=== PATIENT | female | born 1935 | race Caucasian/White ===

== ENCOUNTER 2016-12-28 19:54 | Inpatient (IN) | payer MEDICARE, OTHER ==
[2016-12-28 20:07] VITALS: BMI 23.1
--- NOTE | 2016-12-28 20:14 | ED PDOC ---
Arrival/HPI - General Chief Complaint: GI Problem Time Seen by Provider: 12/28/16 20:01 Historian: Patient, Caregiver - History of Present Illness Narrative History of Present Illness (Text): 12/28/16 20:14 Yumiko Jarquin is an 81 year old female, whose past medical history includes hypertension, diabetes, CAD with coronary stent placement, and cholecystectomy, who presents to the ED complaining of chest pain tonight. Patient also complaining of shortness of breath, cough, and abdominal pain. Medical Office Technologist also notes patient was vomiting and diaphoretic at home. Patient denies any diarrhea, urinary symptoms, back pain, neck pain, headache, dizziness , or any other complaints. Time/Duration: Other (today) Symptom Onset: Gradual Symptom Course: Unchanged Activities at Onset: Rest, Light Context: Home Past Medical History - Provider Review Nursing Documentation Reviewed: Yes - Reproductive Menopause: Yes - Cardiac Hx Cardiac Disorders: (CAD, [place], Angioplasty) - Pulmonary Hx Respiratory Disorders: No - Neurological Hx Neurological Disorder: Yes (PHERIPHERAL NEUROPATHY) - HEENT Hx HEENT Disorder: Yes Hx Blind: Yes (RIGHT EYE-INJURY) - Renal Hx Renal Disorder: No - Endocrine/Metabolic Hx Diabetes Mellitus Type 2: Yes - Hematological/Oncological Hx Blood Disorders: No - Integumentary Hx Dermatological Disorder: No - Musculoskeletal/Rheumatological Hx Musculoskeletal Disorders: Yes Hx Falls: No - Gastrointestinal Hx Gastrointestinal Disorders: Yes (POST LAP CONRAD 2--17,ACUTE CHOLEYCYSTITIS, GERD) - Genitourinary/Gynecological Hx Genitourinary Disorders: No Hx Reproductive Disorders: No - Psychiatric Hx Emotional Abuse: No Hx Physical Abuse: No Hx Substance Use: No - Surgical History Hx Cardiac Catheterization: Yes Hx Coronary Stent: Yes (X1) Hx Orthopedic Surgery: Yes Other/Comment: R eye surgery - Anesthesia Hx Anesthesia Reactions: No Hx Malignant Hyperthermia: No - Suicidal Assessment Feels Threatened In Home Enviroment: No Family/Social History - Physician Review Nursing Documentation Reviewed: Yes Family/Social History: No Known Family HX Smoking Status: Never Smoked Hx Alcohol Use: No Hx Substance Use: No Allergies/Home Meds Allergies/Adverse Reactions: Allergies Iodinated Contrast Media - Oral and Allergy (Verified 12/29/16 05:05) NAUSEA Home Medications: Home Meds Medication Instructions Recorded Confirmed metFORMIN [glucOPHAGE] 500 mg PO BID 01/02/16 11/15/16 Aspirin [Aspirin Chewable] 81 mg PO DAILY 10/29/16 11/15/16 Clopidogrel [Plavix] 75 mg PO DAILY 10/29/16 11/15/16 Multivitamin [Multivitamins] 1 tab PO DAILY 10/29/16 11/07/16 Pantoprazole [Protonix EC Tab] 40 mg PO DAILY 10/29/16 11/07/16 Rosuvastatin Calcium [Crestor] 10 mg PO DAILY 10/29/16 11/07/16 SITagliptin [Januvia] 25 mg PO DAILY 10/29/16 11/15/16 Telmisartan [Micardis] 40 mg PO DAILY 10/29/16 11/07/16 Review of Systems - Physician Review All systems were reviewed & negative as marked: Yes - Review of Systems Constitutional: Normal. absent: Fevers Eyes: Normal ENT: Normal Respiratory: SOB, Cough Cardiovascular: Chest Pain Gastrointestinal: Abdominal Pain, Vomiting. absent: Diarrhea Genitourinary Female: Normal. absent: Dysuria, Frequency, Hematuria, Urine Output Changes Musculoskeletal: Normal. absent: Back Pain, Neck Pain Skin: Normal. absent: Rash Neurological: Normal. absent: Headache, Dizziness Endocrine: Diaphoresis Hemo/Lymphatic: Normal Psychiatric: Normal Physical Exam Vital Signs Reviewed: Yes Vital Signs Temp Pulse Resp BP Pulse Ox 12/28/16 22:30 103 H 18 118/73 99 12/28/16 20:07 99.4 F 122 H 18 133/61 95 Temperature: Afebrile Blood Pressure: Normal Pulse: Regular Respiratory Rate: Normal Appearance: Positive for: Well-Appearing, Non-Toxic, Comfortable Pain Distress: None Mental Status: Positive for: Alert and Oriented X 3 - Systems Exam Head: Present: Atraumatic, Normocephalic Pupils: Present: PERRL Extroacular Muscles: Present: EOMI Conjunctiva: Present: Normal Mouth: Present: Moist Mucous Membranes Neck: Present: Normal Range of Motion Respiratory/Chest: Present: Clear to Auscultation, Good Air Exchange. No: Respiratory Distress, Accessory Muscle Use Cardiovascular: Present: Regular Rate and Rhythm, Normal S1, S2. No: Murmurs Abdomen: Present: Normal Bowel Sounds. No: Tenderness, Distention, Peritoneal Signs Back: Present: Normal Inspection Upper Extremity: Present: Normal Inspection. No: Cyanosis, Edema Lower Extremity: Present: Normal Inspection. No: Edema Neurological: Present: GCS=15, CN II-XII Intact, Speech Normal Skin: Present: Warm, Dry, Normal Color. No: Rashes Psychiatric: Present: Alert, Oriented x 3, Normal Insight, Normal Concentration Medical Decision Making ED Course and Treatment: 12/28/16 20:14 Impression: 81 year old female complaining of chest pain, shortness of breath, abdominal pain, and vomiting today. Plan: -- EKG -- Chest X-ray -- Labs, cardiac enzymes, BNP, lipase, amylase, blood cultures -- Urinalysis -- Reassess and disposition Prior Visits: Notes and results from previous visits were reviewed. On 10/29/2016, pt was seen in the ED for generalized weakness, chest pain, abdominal pain, back pain, and right arm pain. Pt was admitted to the hospital for further evaluation. Progress Notes: 12/28/16 20:41 Reviewed EKG, sinus tachycardia at [address]-segment elevations or depressions, no T-wave inversions, normal intervals. 12/28/16 21:02 Reviewed radiology, Chest X-ray shows no active disease. CT Abdomen and Pelvis ordered 12/28/16 22:53 Reviewed radiology, CT Abdomen and Pelvis shows: 1. Persistent renal enhancement. Correlate with renal function. 2. Striations within kidneys concerning for pyelonephritis. Correlate with urinalysis. 3. Incidental/non-acute findings are described above. Paged PMD. 12/29/16 23:32 Awaiting call back from Dr. Arauz. 12/29/16 00:[address] Arauz's service. 12/29/16 00:[address] back from Dr. Arauz. Will place on hospitalist service. Case discussed with Dr. Jeremiah Davis, who is aware and agrees with plan. Accepts pt in to hospitalist service. Pt will be admitted to [facility] for UTI and vomiting. - Lab Interpretations Microbiology Results: Microbiology Results 12/28/16 21:23 Blood-Venous Blood Culture - Preliminary Gram Negative [place] 12/28/16 21:23 Blood-Venous Gram Stain - Final Lab Results: 12/28/16 20:35 12/28/16 20:35 Lab Results 12/28/16 22:27: Urine Color Yellow, Urine Appearance Sl cloudy, Urine pH 6.0, Ur Specific [place] 1.010, Urine Protein 100 H, Urine Glucose (UA) >=1000, Urine Ketones Negative, Urine Blood Small H, Urine Nitrate Negative, Urine Bilirubin Negative, Urine Urobilinogen 0.2, Ur Leukocyte Esterase Trace H, Urine RBC 0 - 2, Urine WBC 25 - 30, Ur Epithelial Cells 0 - 2, Urine Bacteria Large 12/28/16 20:35: WBC 17.9 H D, RBC 3.66, Hgb 10.5 L, Hct 31.5 L, MCV 86.1, MCH 28.7, MCHC 33.3, RDW 13.6, Plt Count 309, MPV 9.9, Gran % 87.9 H, Lymph % (Auto ) 3.6 L, [place] % (Auto) 8.2 H, Eos % (Auto) 0.2 L, Baso % (Auto) 0.1, Gran # 15.73 H, Lymph # 0.6 L, [place] # 1.5 H, Eos # 0.0, Baso # 0.02, PT 10.8, INR 1.00 , APTT 27.5, Sodium 128 L, Potassium 5.1 H, Chloride 96 L, Carbon Dioxide 22, Anion Gap 15, BUN 26 H, Creatinine 1.6 H, Est GFR ( Amer) 37, Est GFR ( Non-Af Amer) 31, Random Glucose 370 H* D, Calcium 8.2 L, Total Bilirubin 0.5, AST 23, ALT 18, Alkaline Phosphatase 201 H, Lactate Dehydrogenase 551, Total Creatine Kinase 25 L, Troponin I < 0.01, Total Protein 7.4, Albumin 3.3, Globulin 4.1, Albumin/Globulin Ratio 0.8 L, Amylase 69, Lipase 355 H I have reviewed the lab results: Yes - RAD Interpretation Narrative RAD Interpretations (Text): Chest X-ray shows no active disease. CT Abdomen and Pelvis shows: Limitations: Motion artifact - mild. Lack of intravenous contrast. Lower thorax: Minimal atelectasis. ABDOMEN: Liver: Unremarkable. Gallbladder and bile ducts: Cholecystectomy. No ductal dilation. Pancreas: Unremarkable. No ductal dilation. Spleen: No splenomegaly. Adrenals: No mass. Kidneys and ureters: Probable LEFT renal cyst. Residual enhancement of kidneys with multiple linear striations. Residual contrast within renal collecting system, ureters, bladder. Stomach and bowel: Underdistention of descending and proximal sigmoid colon. No definite mural thickening. No obstruction. Appendix: Normal caliber. No inflammation. PELVIS: Bladder: See above. Reproductive: Unremarkable as visualized. ABDOMEN and PELVIS: Intraperitoneal space: No significant fluid collection. No free air. Bones/joints: Mild degenerative changes of spine. No acute fracture. Soft tissues: Mild varices within anterior pelvic wall. Vasculature: Mild atherosclerotic disease. No abdominal aortic aneurysm. Lymph nodes: No pathologically enlarged lymph nodes. IMPRESSION: 1. Persistent renal enhancement. Correlate with renal function. 2. Striations within kidneys concerning for pyelonephritis. Correlate with urinalysis. 3. Incidental/non-acute findings are described above. Radiology Orders: 12/28/16 20:15 CHEST PORTABLE [RAD] Stat 12/28/16 21:01 ABD & PELVIS W/O PO OR IV CONT [CT] Stat Supervisor Hydrochloric Area: ED Physician, Radiologist - EKG Interpretation Interpreted by ED Physician: Yes Type: 12 lead EKG - Medication Orders Current Medication Orders: Acetaminophen (Tylenol 325mg Tab) 650 mg PO Q6H PRN PRN Reason: Fever >100.4 F Aspirin (Aspirin Chewable) 81 mg PO DAILY [facility] Last Admin: 12/29/16 10:17 Dose: 81 MG Atorvastatin Calcium (Lipitor) 40 mg PO DAILY [facility] Last Admin: 12/29/16 10:17 Dose: 40 MG Clopidogrel Bisulfate (Plavix) 75 mg PO DAILY [facility] Last Admin: 12/29/16 10:17 Dose: 75 MG Enoxaparin Sodium (Lovenox) 30 mg SC DAILY [facility] PRN Reason: Protocol Last Admin: 12/29/16 10:18 Dose: 30 MG Subcutaneous Administrations Document 12/29/16 10:18 DLL (Rec: 12/29/16 10:18 DLL [id number]) Injection Site MAR Injection Site Right Abdomen Charges for Administration # of Subcutaneous Administrations 1 Sodium Chloride (Sodium Chloride 0.9%) 1,000 mls @ 60 mls/hr IV .[id number] [facility] Last Admin: 12/29/16 10:36 Dose: 60 MLS/HR eMAR Start Stop Document 12/29/16 10:36 DLL (Rec: 12/29/16 10:36 DLL [id number]) Intravenous Solution Start Date 12/29/16 Start Time 10:36 Meropenem 1g/NS 100mL IVPB (Meropenem 1g/Ns 100ml Ivpb) 100 mls @ 100 mls/hr IVPB Q12H [facility] PRN Reason: Protocol Stop: 01/08/17 18:31 Last Admin: 12/29/16 18:27 Dose: 100 MLS/HR eMAR Start Stop Document 12/29/16 18:27 DLL (Rec: 12/29/16 18:27 DLL [id number]) Intravenous Solution Start Date 12/29/16 Start Time 18:27 End Date 12/29/16 End time 19:27 Total Infusion Time 60 Insulin Detemir (Levemir) 15 unit SC HS CHELA Insulin Human Lispro (Humalog Low) 0 units SC ACHS [facility] PRN Reason: Protocol Last Admin: 12/29/16 16:44 Dose: 5 UNITS MAR Blood Glucose Document 12/29/16 16:44 DLL (Rec: 12/29/16 16:45 DLL [place] [id number]) Blood Glucose Finger Stick Blood Glucose (70-120) 355 Subcutaneous Administrations Document 12/29/16 16:44 DLL (Rec: 12/29/16 16:45 DLL [place] [id number]) Injection Site MAR Injection Site Right Arm Charges for Administration # of Subcutaneous Administrations 1 Losartan Potassium (Cozaar) 50 mg PO DAILY [facility] Last Admin: 12/29/16 10:17 Dose: 50 MG MAR Pulse and Blood Pressure Document 12/29/16 10:17 DLL (Rec: 12/29/16 10:17 DLL [place] [id number]) Pulse Pulse Rate (60-90) 105 Blood Pressure Blood Pressure (100/60-150/90) 143/89 Multivitamins (Thera Tab) 1 tab PO DAILY [facility] Last Admin: 12/29/16 10:17 Dose: 1 TAB Pantoprazole Sodium (Protonix Ec Tab) 40 mg PO 0730,1630 [facility] Last Admin: 12/29/16 16:55 Dose: 40 MG Discontinued Medications Cefepime HCl (Maxipime 1gm) 100 mls @ 100 mls/hr IVPB Q24H [facility] PRN Reason: Protocol Last Admin: 12/28/16 23:51 Dose: 100 MLS/HR eMAR Start Stop Document 12/28/16 23:51 SB (Rec: 12/28/16 23:51 SB [id number] Intravenous Solution Start Date 12/28/16 Start Time 23:51 End Date 12/28/16 Sodium Chloride (Sodium Chloride 0.9%) 1,000 mls @ 100 mls/hr IV .Q10H [facility] Last Admin: 12/29/16 02:36 Dose: 100 MLS/HR eMAR Start Stop Document 12/29/16 02:36 SB (Rec: 12/29/16 02:36 SB [id number]) Intravenous Solution Start Date 12/29/16 Start Time 02:36 End Date 12/29/16 Meropenem 1g/NS 100mL IVPB (Meropenem 1g/Ns 100ml Ivpb) 100 mls @ 100 mls/hr IVPB Q12 [facility] PRN Reason: Protocol Stop: 01/08/17 22:01 Insulin Detemir (Levemir) 10 unit SC HS [facility] Insulin Human Lispro (Humalog) 5 units SC STAT STA Stop: 12/29/16 02:39 - Scribe Statement The provider has reviewed the documentation as recorded by the Scribandrez Dick All medical record entries made by the Scribe were at my direction and personally dictated by me. I have reviewed the chart and agree that the record accurately reflects my personal performance of the history, physical exam, medical decision making, and the department course for this patient. I have also personally directed, reviewed, and agree with the discharge instructions and disposition. Disposition/Present on Arrival - Present on Arrival Any Indicators Present on Arrival: No History of DVT/PE: No History of Uncontrolled Diabetes: No Urinary Catheter: No History of Decub. Ulcer: No History Surgical Site Infection Following: None - Disposition Have Diagnosis and Disposition been Completed?: Yes Diagnosis: Urinary tract infection Disposition: HOSPITALIZED Disposition Time: 00:05 Condition: FAIR
[2016-12-28 20:43] LABS: ADD MANUAL DIFF? NO
[2016-12-28 20:46] LABS: BASO # 0.02 K/mm3 (0.0-2.0); BASO % 0.1 % (0.0-3.0); EOS % 0.2 % (1.5-5.0); GRAN # 15.73 (1.4-6.5); GRAN % 87.9 % (50.0-68.0); HEMATOCRIT 31.5 % (36.0-48.0); LYMPH # 0.6 (1.2-3.4); LYMPH % 3.6 % (22.0-35.0); MEAN CELL VOLUME 86.1 fL (80.0-105.0); MEAN CORPUSCULAR HEMOGLOBIN 28.7 pg (25.0-35.0); MEAN CORPUSCULAR HGB CONC 33.3 g/dl (31.0-37.0); MEAN PLATELET VOLUME 9.9 fl (7.0-11.0); MONO # 1.5 (0.1-0.6); MONO % 8.2 % (1.0-6.0); PLATELET COUNT 309 10^3/uL (120.0-450.0); RED CELL DISTRIBUTION WIDTH 13.6 % (11.5-14.5); WHITE BLOOD COUNT 17.9 10^3/ul (4.5-11.0)
[2016-12-28 20:57] LABS: ALB/GLOB RATIO 0.8 (1.1-1.8); ALKALINE PHOSPHATASE 201 U/L (38-133); ALT/SGPT 18 U/L (7-56); AMYLASE 69 U/L (35-125); AST/SGOT 23 U/L (15-39); BILIRUBIN,TOTAL 0.5 mg/dL (0.2-1.3); BLOOD UREA NITROGEN 26 mg/dL (7-21); CALCIUM 8.2 mg/dL (8.4-10.5); CARBON DIOXIDE 22 mmol/L (21-33); CHLORIDE 96 mmol/L (98-107); GFR AFRICAN-AMERICAN 37; LIPASE 355 U/L (23-300); POTASSIUM 5.1 mmol/L (3.6-5.0); SODIUM 128 mmol/L (132-148); TOTAL PROTEIN 7.4 g/dL (5.8-8.3)
[2016-12-28 20:59] LABS: PARTIAL THROMBOPLASTIN TIME 27.5 Seconds (23.7-30.8)
[2016-12-28 21:01] LABS: GLUCOSE,RANDOM 370 mg/dL (70-110)
[2016-12-28 21:13] LABS: TROPONIN I < 0.01 ng/mL
--- NOTE | 2016-12-28 22:23 | CT ---
EXAM: CT Abdomen and Pelvis Without Intravenous Contrast CLINICAL HISTORY: 81 years old, female; Pain; Abdominal pain; Patient HX: Abd pain TECHNIQUE: Axial computed tomography images of the abdomen and pelvis without intravenous contrast. This CT exam was performed using one or more of the following dose reduction techniques: automated exposure control, adjustment of the mA and/or kV according to patient size, and/or use of iterative reconstruction technique. Coronal and sagittal reformatted images were created and reviewed. COMPARISON: CT - ABD PELVIS W/O PO OR IV CONT 10/29/2016 12:00:22 PM FINDINGS: Limitations: Motion artifact - mild. Lack of intravenous contrast. Lower thorax: Minimal atelectasis. ABDOMEN: Liver: Unremarkable. Gallbladder and bile ducts: Cholecystectomy. No ductal dilation. Pancreas: Unremarkable. No ductal dilation. Spleen: No splenomegaly. Adrenals: No mass. Kidneys and ureters: Probable LEFT renal cyst. Residual enhancement of kidneys with multiple linear striations. Residual contrast within renal collecting system, ureters, bladder. Stomach and bowel: Underdistention of descending and proximal sigmoid colon. No definite mural thickening. No obstruction. Appendix: Normal caliber. No inflammation. PELVIS: Bladder: See above. Reproductive: Unremarkable as visualized. ABDOMEN and PELVIS: Intraperitoneal space: No significant fluid collection. No free air. Bones/joints: Mild degenerative changes of spine. No acute fracture. Soft tissues: Mild varices within anterior pelvic wall. Vasculature: Mild atherosclerotic disease. No abdominal aortic aneurysm. Lymph nodes: No pathologically enlarged lymph nodes. IMPRESSION: 1. Persistent renal enhancement. Correlate with renal function. 2. Striations within kidneys concerning for pyelonephritis. Correlate with urinalysis. 3. Incidental/non-acute findings are described above.
[2016-12-28 23:01] LABS: URINE BILIRUBIN NEGATIVE (NEGATIVE); URINE BLOOD SMALL (NEGATIVE); URINE COLOR YELLOW (YELLOW); URINE GLUCOSE (UA) >=1000 mg/dL (NEGATIVE); URINE KETONE NEGATIVE (NEGATIVE); URINE LEUKOCYTE ESTERASE TRACE Leu/uL (NEGATIVE); URINE PROTEIN 100 mg/dL (<30 mg/dL); URINE UROBILINOGEN 0.2 E.U./dL (<1 E.U./dL)
[2016-12-28 23:02] LABS: URINE APPEARANCE SL CLOUDY (CLEAR)
[2016-12-28] MEDS ORDERED: Cefepime 1gm in NS 100ml 100 ML IVPB SCH (23:15)
[2016-12-28 23:24] LABS: URINE BACTERIA LARGE (NEG); URINE EPITHELIAL CELLS 0 - 2 /hpf (0-5); URINE RBC 0 - 2 /hpf (0-2); URINE WBC 25 - 30 /hpf (0-6)
--- NOTE | 2016-12-29 00:50 | CP.PCM.HP ---
History of Present Illness - History of Present Illness History of Present Illness: PGY1 for Dr. Ghulam Davis Admission: Sepsis 81 yo female with PMH of HTN, DM, CAD with 1 stent, CKD 3B, GERD, cholecystectomy and LAD KEMAL placement 1 month ago, presents to the ED complaining of shaking tonight. Patient also complaining of shortness of breath , cough, abdominal pain and chest pain with radiation to R posterior back and R arm. Pt has a CT neck with IV contrast at [facility] this AM. Per daughter , Last dose of metformin was the day before/or of the CT contrast. Per daughter , pt was uneventful the whole day, with only decreased appetitie. At 8pm, she received a call that pt was shaking, so pt was brought to the hospital. Daughter noticed that patient has increase chest pain and abdominal pain with increased cough [place] [facility] [place]. The chest pain located in mid-sternal area, sharp, dysneic, comes and goes. The abdominal pain is mid- line epigastric, sharp, also comes and go. Denies diaphoresis/N/V associated with onset of both pain. Pt noticed sour taste in AM, increased acid reflux after meal, and increased morning cough with small amount of "white spits". (+) "scratchy throat" No vomiting. No solid/liquid dysphagia. No odynophagia. No globus feeling. Upon ED arrival, T 99.4 oral, HR 122, 133/61, RR 18, 95RA. WBC 17.9 with granulocytosis, Hb 10.5, glucose 370, Gap 11. Na 128 (corrected 134), BUN/Cre 26/1.6 Normal transaminase, LFT elevated at 201. Lipse 355. Amylase normal - EKG, sinus tachycardia at [address]-segment elevations or depressions, no T-wave inversions, normal intervals. - Chest X-ray shows no active disease - CT abdomin and pelvis shows pyelonephritis, persistent renal enhancement, L renal cyst Blood and urine culture collected. Pt received Maxipime 1gm ROS Denies diarrhea, dysuria, blood in urine, neck pain, headache, dizziness PMH: CAD with 2 vessel disease, R dominant. KEMAL on LAD 11/06. 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 All: NKDA Med: metFORMIN 500 mg BID, Januvia 25 daily Aspirin 81, Plavix 75 Telmisartan [Micardis] 40 mg PO DAILY Crestor 10 daily Protonix 40 daily Multivitamin Medication changed provided by family: Stop invokana, stop Glyburide-Metformin 5-500 mg BID, metformin change to BID Stop B12 shot, hasn't been getting it for a long while Does not need zolpidem for a long while PMD: Dr. Jennifer Dorsey, [place] [facility] [employer]: Dr. Krishan Gonzalez Present on Admission - Present on Admission Any Indicators Present on Admission: Yes History of Uncontrolled Diabetes: Yes Past Patient History - Past Medical History & Family History Past Medical History?: Yes - Past Social History Smoking Status: Never Smoked - CARDIAC Hx Cardiac Disorders: (CAD, OR, Angioplasty) - PULMONARY Hx Respiratory Disorders: No - NEUROLOGICAL Hx Neurological Disorder: Yes (PHERIPHERAL NEUROPATHY) - HEENT Hx HEENT Problems: Yes Hx Blind: Yes (RIGHT EYE-INJURY) - RENAL Hx Chronic Kidney Disease: No - ENDOCRINE/METABOLIC Hx Diabetes Mellitus Type 2: Yes - HEMATOLOGICAL/ONCOLOGICAL Hx Blood Disorders: No - INTEGUMENTARY Hx Dermatological Problems: No - MUSCULOSKELETAL/RHEUMATOLOGICAL Hx Musculoskeletal Disorders: Yes Hx Falls: No - GASTROINTESTINAL Hx Gastrointestinal Disorders: Yes (POST LAP CONRAD 11-01-16,ACUTE CHOLEYCYSTITIS, GERD) - GENITOURINARY/GYNECOLOGICAL Hx Genitourinary Disorders: No Hx Reproductive Disorders: No - PSYCHIATRIC Hx Emotional Abuse: No Hx Physical Abuse: No Hx Substance Use: No - SURGICAL HISTORY Hx Cardiac Catheterization: Yes Hx Coronary Stent: Yes (X1) Hx Orthopedic Surgery: Yes Other/Comment: R eye surgery - ANESTHESIA Hx Anesthesia Reactions: No Hx Malignant Hyperthermia: No Meds Allergies/Adverse Reactions: Allergies Allergy/AdvReac Type Severity Reaction Status Date / Time No Known Allergies Allergy Verified 12/28/16 20:11 Physical Exam - Constitutional Appears: No Acute Distress - Head Exam Head Exam: ATRAUMATIC, NORMAL INSPECTION, NORMOCEPHALIC - Eye Exam Eye Exam: EOMI, Normal appearance, PERRL Pupil Exam: NORMAL ACCOMODATION, PERRL - ENT Exam ENT Exam: Mucous Membranes Moist, Normal Oropharynx - Neck Exam Neck exam: Positive for: Normal Inspection. Negative for: Lymphadenopathy, Meningismus - Respiratory Exam Respiratory Exam: Clear to Auscultation Bilateral, NORMAL BREATHING PATTERN. absent: Rales, Rhonchi, Wheezes - Cardiovascular Exam Cardiovascular Exam: REGULAR RHYTHM, +S1, +S2, Systolic Murmur - GI/Abdominal Exam GI & Abdominal Exam: Normal Bowel Sounds, Soft, Tenderness (epigastric tenderness. Negative whitaker, rovsing, mcburney). absent: Distended, Rigid - Extremities Exam Extremities exam: Positive for: normal capillary refill, pedal pulses present. Negative for: calf tenderness, pedal edema - Back Exam Back exam: CVA tenderness (R). absent: CVA tenderness (L), vertebral tenderness - Neurological Exam Neurological exam: Alert, Oriented x3 - Psychiatric Exam Psychiatric exam: Normal Affect, Normal Mood - Skin Skin Exam: Dry, Normal Color, Warm Results - Vital Signs Recent Vital Signs: Last Vital Signs Temp 99.4 F 12/28/16 20:07 Pulse 103 H 12/28/16 22:30 Resp 18 12/28/16 22:30 BP 118/73 12/28/16 22:30 Pulse Ox 99 12/28/16 22:30 - Labs Result Diagrams: 12/28/16 20:35 12/28/16 20:35 Labs: Laboratory Results - last 24 hr 12/28/16 12/28/16 20:35 22:27 WBC 17.9 H D RBC 3.66 Hgb 10.5 L Hct 31.5 L MCV 86.1 MCH 28.7 MCHC 33.3 RDW 13.6 Plt Count 309 MPV 9.9 Gran % 87.9 H Lymph % (Auto) 3.6 L [place] % (Auto) 8.2 H Eos % (Auto) 0.2 L Baso % (Auto) 0.1 Gran # 15.73 H Lymph # 0.6 L [place] # 1.5 H Eos # 0.0 Baso # 0.02 PT 10.8 INR 1.00 APTT 27.5 Sodium 128 L Potassium 5.1 H Chloride 96 L Carbon Dioxide 22 Anion Gap 15 BUN 26 H Creatinine 1.6 H Est GFR ( Amer) 37 Est GFR (Non-Af Amer) 31 Random Glucose 370 H* D Calcium 8.2 L Total Bilirubin 0.5 AST 23 ALT 18 Alkaline Phosphatase 201 H Lactate Dehydrogenase 551 Total Creatine Kinase 25 L Troponin I < 0.01 Total Protein 7.4 Albumin 3.3 Globulin 4.1 Albumin/Globulin Ratio 0.8 L Amylase 69 Lipase 355 H Urine Color Yellow Urine Appearance Sl cloudy Urine pH 6.0 Ur Specific [place] 1.010 Urine Protein 100 H Urine Glucose (UA) >=1000 Urine Ketones Negative Urine Blood Small H Urine Nitrate Negative Urine Bilirubin Negative Urine Urobilinogen 0.2 Ur Leukocyte Esterase Trace H Urine RBC 0 - 2 Urine WBC 25 - 30 Ur Epithelial Cells 0 - 2 Urine Bacteria Large Assessment & Plan - Assessment and Plan (Free Text) Plan: 81 yo female with PMH of HTN, DM x 30 years, CAD with 1 stent, CKD, GERD, cholecystectomy and LAD KEMAL placement 1 month ago, Neck CT with IV contrast presents to the ED complaining of shaking tonight. Patient also complaining of shortness of breath, cough, abdominal pain and chest pain with radiation to R posterior back and R arm. SIRS Pyelonephtitis Complicated UTI, Hx diabetes - Shaking due to fever and chills - Unlikely lung, skin - VBG lactate pending - Maxipime q24, as per renal dosing - tylenol PRN Atypical chest pain Epigastric Abdominal pain - Trend cardiac enzyme MELECIO on CKD 3B - Ddx: prerenal and intrinsic combined: Dehydration from HHS vs Suspected contrast nephropathy - NS@100 - Strict i/o - urine eosinophil Hyperglycemia, suspected Hyperosmolar Hyperglycemic state Diabetes Mellitis, A1C 8.9, Oct 2016 - diabetes education - Start Levemir 10 units - ISSS - hold januvia and metformin GERD, uncontrolled s/p cholecystectomy - with epigastric and atypical chest pain - increase protonix trial to BID for 3 month - If failed trial, outpatient f/u with GI for EGD Has ruled out pancreatitis - Lipse less than 3 times normal - negative CT for pancreatitis - (+) epigastric pain radiating to back Hx 2 vessels CAD - continue ASA, plavix Hx HTN - continue Telmisartan [Micardis] 40 mg PO DAILY Hx CLD - continue Crestor 10 daily, lipid panel Prophylasix - Lovenox S/R/D/w Dr. Ghulam Davis - Date & Time Date: 12/29/16 Time: 01:58
[2016-12-29] MEDS ORDERED: Sodium Chloride 0.9% 1,000 ML IV SCH (02:00)
[2016-12-29] MEDS ORDERED: Insulin Lispro 1 UNITS/0.01 ML SC STA (02:38)
[2016-12-29 04:16] LABS: VENOUS BLOOD GAS BASE EXCESS -0.5 mmol/L (0.0-2.0); VENOUS BLOOD PH 7.32 (7.32-7.43)
[2016-12-29 08:08] LABS: ADD MANUAL DIFF? NO
[2016-12-29 08:16] LABS: BASO # 0.02 K/mm3 (0.0-2.0); BASO % 0.1 % (0.0-3.0); EOS # 0.1 (0.0-0.7); EOS % 0.5 % (1.5-5.0); GRAN # 15.14 (1.4-6.5); GRAN % 86.9 % (50.0-68.0); HEMATOCRIT 30.8 % (36.0-48.0); LYMPH # 0.8 (1.2-3.4); LYMPH % 4.8 % (22.0-35.0); MEAN CELL VOLUME 86.3 fL (80.0-105.0); MEAN CORPUSCULAR HEMOGLOBIN 28.6 pg (25.0-35.0); MEAN CORPUSCULAR HGB CONC 33.1 g/dl (31.0-37.0); MONO # 1.3 (0.1-0.6); MONO % 7.7 % (1.0-6.0); PLATELET COUNT 315 10^3/uL (120.0-450.0); RED CELL DISTRIBUTION WIDTH 13.7 % (11.5-14.5); WHITE BLOOD COUNT 17.4 10^3/ul (4.5-11.0)
[2016-12-29] MEDS: Insulin Lispro (humaLOG) LOW Coverage SC SCH ×4 (08:16→22:47)
[2016-12-29] MEDS: Pantoprazole 40 mg EC Tab PO SCH ×2 (08:17→16:55)
[2016-12-29 08:28] LABS: ALB/GLOB RATIO 0.8 (1.1-1.8); ALKALINE PHOSPHATASE 166 U/L (38-133); ALT/SGPT 15 U/L (7-56); AST/SGOT 23 U/L (15-39); BILIRUBIN,TOTAL 0.6 mg/dL (0.2-1.3); BLOOD UREA NITROGEN 25 mg/dL (7-21); CALCIUM 8.1 mg/dL (8.4-10.5); CARBON DIOXIDE 25 mmol/L (21-33); CHLORIDE 100 mmol/L (98-107); CHOLESTEROL 79 mg/dL (130-200); GFR AFRICAN-AMERICAN 35; POTASSIUM 4.6 mmol/L (3.6-5.0); SODIUM 131 mmol/L (132-148); TOTAL PROTEIN 6.9 g/dL (5.8-8.3)
--- NOTE | 2016-12-29 08:43 | CARD ---
APPROVED REPORT EKG Measurement Heart [id number] NC 130P28 [id number] <Conclusion> Sinus tachycardia Otherwise normal ECG
[2016-12-29 08:51] LABS: TROPONIN I < 0.01 ng/mL
[2016-12-29 08:52] LABS: GLUCOSE,RANDOM 304 mg/dL (70-110)
--- NOTE | 2016-12-29 09:13 | RAD ---
HISTORY: cp COMPARISON: No prior. FINDINGS: LUNGS: Mild bilateral interstitial changes. PLEURA: No significant pleural effusion identified, no pneumothorax apparent. CARDIOVASCULAR: Normal. OSSEOUS STRUCTURES: No significant abnormalities. VISUALIZED UPPER ABDOMEN: Normal. OTHER FINDINGS: None. IMPRESSION: Mild bilateral interstitial changes.
[2016-12-29] MEDS: Multivitamin Therapeutic Tab PO SCH (10:17)
[2016-12-29] MEDS: Enoxaparin 30 mg Syringe SC SCH (10:18)
[2016-12-29] MEDS: Sodium Chloride 0.9% 1,000 ML IV SCH (10:36)
--- NOTE | 2016-12-29 11:44 | PN ---
DATE: 12/29/2016 I know her from her last time in the hospital with gallbladder issues. She was sent here today with sweating and pain and not feeling well. They tried to call my service last night. I had trouble wit h my answering service which is now fixed. They spoke to the hospitalist. Is now back with Dr. Nicholas han's service. She is resting in bed, a little more comfortable. No nausea, vomiting, no sweating, a nd less abdominal pain. PHYSICAL EXAMINATION: VITAL SIGNS: She has 95.5 temp, 159 pulse which is a little bit quick. I will rechecked that. Bloo d pressure 141/64, 18 respiratory rate, 99% O2 sat on 2 liters nasal cannula. HEENT: Head is atraumatic, normocephalic. The right eye is blind. Throat is moist. NECK: Supple. HEART: Regular rate. LUNGS: Decreased breath sounds but clear. ABDOMEN: Morbidly obese, soft, nontender, positive bowel sounds. No guarding, no rebound, no CVA te nderness. No abdominal pain at this time. EXTREMITIES: Trace edema in the legs. MEDICATIONS: She is on aspirin, Cozaar, insulin, Levemir, Lipitor, Lovenox, Maxipime, Plavix, Proton ix, IV fluids at 100, Thera-Tabs and Tylenol. I will decrease the IV fluids, because I am worried ab out CHF with this 81-year-old. LABORATORY DATA: She had a CAT scan which showed a correlation with pyelonephritis and a chest x-ray which showed bilateral interstitial changes, but nothing acute. I will call infectious disease, Dr. Tapia for IV antibiotic care. Might need to be changed. I increased the Levemir to 15, decrea sed the IV fluids to 60. Check her labs tomorrow. Physical therapy involved. Check her labs tomorr ow, and hopefully she will improve and the white count will come down. The patient has pyelonephritis, hypertension, CAD, diabetes. Jonah Ward DO cc: [id number] TT: 12/29/2016 11:44:21 Confirmation # [id number] Dictation # [id number] mn
[2016-12-29 12:24] LABS: TROPONIN I < 0.01 ng/mL
[2016-12-29] MEDS: Meropenem 1g/NS 100mL IVPB 100 ML IVPB SCH (18:27)
--- NOTE | 2016-12-29 20:28 | CON ---
DATE: 12/29/2016 The patient is in bed, was seen earlier today in [facility], bed 1. The patient's son at the bedside. CHIEF COMPLAINT: Weakness times several days. HISTORY OF PRESENT ILLNESS: This is an 81-year-old female with a history of coronary artery disease, myocardial infarction, PCI and recently was in the hospital with acute cholecystitis, had laparoscopic cholecystectomy in 10/2016, and also history of hypertension, diabetes mellitus and renal insufficiency and recent hospitalization and who is now admitted with pain in the abdominal area and she had fevers and chills at home and she did have vomiting at home and became diaphoretic. She denies any dysuria or frequency. She also had chest pain and abdominal pain, diffuse. PAST MEDICAL HISTORY: Significant for diabetes mellitus, hypertension, renal disease, coronary artery disease, myocardial infarction, recent hospitalization. PAST SURGICAL HISTORY: Significant for a laparoscopic cholecystectomy and PCI. ALLERGIES: THE PATIENT IS ALLERGIC TO CONTRAST. MEDICATIONS AT HOME: Reviewed and include metformin, Januvia, Crestor, Protonix , and Plavix. PHYSICAL EXAMINATION: GENERAL: The patient is in bed, no acute distress. VITAL SIGNS: Temperature of 95.5, blood pressure is 141/60, respiratory rate of 18, and the patient's heart rate was up to 103. HEENT: Unremarkable. NECK: Supple. LUNGS: Have decreased breath sounds. HEART: Normal S1, S2. ABDOMEN: Mild tenderness. No rebound, no guarding. There is CVA tenderness. LABORATORY EXAMINATION: Reveals a white count of 17,900; hemoglobin of 10; platelets of 309. Coagulation is noted. Chemistries reveal a BUN of 25, creatinine of 1.7. Urinalysis is noted. Microbiology from the past admission showed E. coli in the gallbladder, which was sensitive. E. coli in the urine, which was also sensitive. The patient also had E. coli in the urine in 2014. CAT scan of the abdomen and pelvis is reviewed, concerning, rule out pyelonephritis. Dr. Ward's note is reviewed. note is reviewed. Emergency Room note is reviewed. ASSESSMENT AND PLAN: This is an 81-year-old female originally from [facility], has not been out of the country for some time, with coronary artery disease, hypertension, diabetes, recent hospitalization, renal disease and history of gallbladder disease, had laparoscopic cholecystectomy in 10/2016, now presenting with severe sepsis with urine and pyelonephritis as a source with acute kidney injury where the creatinine has changed from 1.3 to 1.6. We will treat the patient with meropenem pending blood cultures, urine cultures and urinalysis is noted. We will make further recommendations upon availability of initial results. blood cultures now with gram neg dunia on meropenum Johnie Tapia MD cc: [id number] TT: 12/29/2016 20:27:21 Confirmation # [id number] Dictation # [id number] sandra MYRICK
[2016-12-29] MEDS ORDERED: Cefepime 1gm in NS 100ml 100 ML IVPB SCH (22:00)
[2016-12-29] MEDS ORDERED: Meropenem 1g/NS 100mL IVPB 100 ML IVPB SCH (22:00)
[2016-12-29] MEDS ORDERED: Insulin Detemir 100 units/ml Vial (Levemir) SC SCH (22:00)
[2016-12-29] MEDS: Insulin Detemir 100 units/ml Vial (Levemir) SC SCH (22:48)
[2016-12-30 06:57] LABS: ADD MANUAL DIFF? NO
[2016-12-30 07:13] LABS: BASO # 0.02 K/mm3 (0.0-2.0); BASO % 0.1 % (0.0-3.0); EOS # 0.3 (0.0-0.7); EOS % 2.3 % (1.5-5.0); GRAN # 10.47 (1.4-6.5); HEMATOCRIT 26.6 % (36.0-48.0); LYMPH # 1.9 (1.2-3.4); LYMPH % 13.9 % (22.0-35.0); MEAN CELL VOLUME 87.2 fL (80.0-105.0); MEAN CORPUSCULAR HEMOGLOBIN 28.5 pg (25.0-35.0); MEAN CORPUSCULAR HGB CONC 32.7 g/dl (31.0-37.0); MEAN PLATELET VOLUME 9.6 fl (7.0-11.0); MONO # 1.2 (0.1-0.6); MONO % 8.7 % (1.0-6.0); PLATELET COUNT 318 10^3/uL (120.0-450.0); RED CELL DISTRIBUTION WIDTH 14.3 % (11.5-14.5)
[2016-12-30 07:15] LABS: ALB/GLOB RATIO 0.7 (1.1-1.8); BILIRUBIN,TOTAL 0.3 mg/dL (0.2-1.3); CALCIUM 7.4 mg/dL (8.4-10.5); POTASSIUM 4.3 mmol/L (3.6-5.0); TOTAL PROTEIN 5.9 g/dL (5.8-8.3)
[2016-12-30] MEDS: Meropenem 1g/NS 100mL IVPB 100 ML IVPB SCH ×2 (07:53→17:29)
[2016-12-30] MEDS: Pantoprazole 40 mg EC Tab PO SCH ×2 (07:54→16:49)
[2016-12-30] MEDS ORDERED: Levalbuterol 0.63 MG/3 ML Inhal Soln UD IH PRN (08:20)
--- NOTE | 2016-12-30 08:55 | CON ---
DATE: 12/30/2016 REASON FOR CONSULTATION: Cough. REFERRING PHYSICIAN: Dr. Jonah Ward History is obtained via extensive discussion with the nurse. I have also reviewed the chart at length, and discussed the case with the patient at length. The patient is an 81-year-old female with past medical history significant for coronary artery disease, myocardial infarction in the past, status post coronary stent, status post recent cholecystectomy (for acute cholecystitis), hypertension, diabetes mellitus, who presents to [facility] with chief complaints of increasing abdominal pain, nausea and vomiting, and fevers. In the Emergency Room, the patient was diagnosed with acute pyelonephritis. She was thus admitted for additional evaluation. The patient denies shortness of breath at rest or dyspnea on exertion. She does state to a minimal cough "on and off" for a "while". She does not produce significant sputum. There is no history of chest pain, coughing up of blood or chest pain -- made worse with deep respirations. The patient did present to [facility] with low-grade fevers. No history of chills or infectious exposure. No history of night sweats, weight loss or appetite change prior to the above events. No history of leg or calf pains. No history of syncope. The patient was noted to be diaphoretic at home. No history of recent travel or trauma. REVIEW OF SYSTEMS: No new musculoskeletal or neurologic complaints. Rest of the review of systems is negative. ALLERGIES: TO IV DYE. SOCIAL HISTORY: Negative for tobacco, negative for alcohol. was a heavy smoker. FAMILY HISTORY: No inheritable diseases. HOME MEDICATIONS: Include Glucophage, Micardis, Januvia, Crestor, Protonix, multivitamins, Plavix, aspirin. PHYSICAL EXAMINATION: GENERAL: The patient is not short of breath at rest. She is not using accessory muscles for breathing. VITAL SIGNS: Temperature is 95.5. Pulse at the current time is approximately 90, respiratory rate 18, blood pressure 141/64. Oxygen saturation on nasal cannula is 99%-100%. HEENT: Normocephalic, atraumatic. No JVD. CARDIOVASCULAR: Positive S1, S2. No S3. LUNGS: Clear bilaterally. EXTREMITIES: Mild edema. No cyanosis, no clubbing. Calves are nontender to palpation. GASTROINTESTINAL: Abdomen is soft. It is mildly distended and tender to palpation. Bowel sounds are positive. SKIN: No acute rash. NEUROLOGIC: Limited at the present time. PERTINENT LABORATORY DATA: CAT scan of the abdomen and pelvis was done and reviewed. There are minimal chronic changes noted at the lung bases. There is persistent renal enhancement with findings consistent with pyelonephritis. Chest x-ray was also done and reviewed. I also compared the most recent film to previous films. There is a very mild increase in the interstitial changes - - also seen on previous films. Complete metabolic profile: BUN 27, creatinine 1.9, glucose 197, calcium 7.4, albumin 2.4. Rest of the metabolic profile is within normal limits. CBC: White count 14.0, hemoglobin 8.7, hematocrit 26.6, platelets of 318. IMPRESSION: 1. Acute pyelonephritis. 2. Sepsis syndrome. 3. Anemia. 4. Renal insufficiency. 5. Minimal bronchospasm. 6. Coronary artery disease. PLAN: Again, I did discuss the case with the nurse and patient at length. The patient presents to [facility] with main complaints of abdominal pain, nausea and vomiting, and fevers. As above, in the Emergency Room, the patient was diagnosed with acute pyelonephritis. She was thus admitted for additional evaluation. I did question the patient and nurse at length. Other than a minimal occasional cough (which is not new), the patient offers no significant pulmonary symptoms. She is not a smoker, but her was a heavy smoker. I will start the patient on nebulizer treatments this morning. I did review the CAT scan of the abdomen/pelvis and chest x-ray -- as above. There are no acute pulmonary findings on these films. I would continue with the antibiotic coverage as per infectious disease. Input by Dr. Tapia is noted. Clinical status of the patient is improved -- compared to the initial presentation. Additional pulmonary intervention will be based on the clinical status of the patient. I will discuss the above with Dr. Ward. Thank you very much for this pulmonary consultation. Justino Lima MD cc: [id number] TT: 12/30/2016 08:54:56 Confirmation # [id number] Dictation # [id number] en MTDD
--- NOTE | 2016-12-30 09:04 | PN ---
DATE: 12/30/2016 I saw her resting in bed this morning. She is now developing a cough. She is very upset about that. She does not feel good. She may have a little shortness of breath too. Did not sleep that well. PHYSICAL EXAMINATION: VITAL SIGNS: She has a 95.5 temp, 105 pulse, 143/89 blood pressure, 95% O2 sat on 2 liters. HEAD: Atraumatic, normocephalic. Throat is dry. NECK: Supple. HEART: Regular rate. LUNGS: Decreased breath sounds, poor inspiration, but clear. No rales, rhonchi or wheezes. ABDOMEN: Soft, obese, nontender. EXTREMITIES: No edema. MEDICATIONS: She is currently on aspirin, Cozaar, insulin, Levemir, Lipitor, Lovenox, Merrem IV, Facundo vix, Protonix, IV fluids at 60, Thera-Tabs, Tylenol, Xopenex. LABORATORY DATA: She has a 135 sodium, potassium 4.3. BUN went up to 25 and creatinine went up to 1 .9 (I will increase her fluids and I called in kidney doctor). A 172 sugar. Total bili is 0.3, AST is 16, ALT is 13, alk phos 117, total protein is 5.9. White count is 14 (it is getting better with a ntibiotics), hemoglobin dropped to 8.7, hematocrit is 26.6, and platelets are 318. If that hemoglobi n drops further, I will transfuse her. I will check her stool for blood. She also has a urinary tra ct infection. So she has had pyelonephritis, urinary tract infection, renal insufficiency, hypertension, coronary a rtery disease, atrial fibrillation and cough. She will be seen by cardio, infectious disease and now renal, also pulmonary. Get physical therapy t o see what she is doing. Will keep a very close eye on this 81-year-old. Jonah Ward DO cc: [id number] TT: 12/30/2016 09:03:52 Confirmation # [id number] Dictation # [id number] sandra
[2016-12-30] MEDS: Enoxaparin 30 mg Syringe SC SCH (09:06)
[2016-12-30] MEDS: Insulin Lispro (humaLOG) LOW Coverage SC SCH ×4 (09:06→22:51)
[2016-12-30] MEDS: Sodium Chloride 0.9% 1,000 ML IV SCH ×2 (09:07→22:54)
[2016-12-30] MEDS: Multivitamin Therapeutic Tab PO SCH (09:07)
[2016-12-30] MEDS: Nystatin 100,000 Units/gm Topical Pow(15 gm) TOP SCH ×2 (11:55→17:24)
--- NOTE | 2016-12-30 13:09 | CON ---
DATE: 12/30/2016 HISTORY OF PRESENT ILLNESS: The patient is an 81-year-old woman who presents with transient chest di scomfort with nausea and vomiting. All 3 symptoms have now resolved. PAST MEDICAL HISTORY: Notable for diabetes mellitus, hypertension and hypercholesterolemia. In bebe tion, the patient suffers from renal insufficiency. The patient underwent PTCA and stent of a long lesion in the LAD after a cholecystectomy. The patient is now sitting in a chair, without shortness of breath, without chest pain. SOCIAL HISTORY: The patient does not smoke. REVIEW OF SYSTEMS: A 14-point was reviewed. No cardiac symptomatology is noted. PHYSICAL EXAMINATION: VITAL SIGNS: Blood pressure is 147/65, the heart rate is in the 80s and 90s, sinus rhythm. NECK: Negative JVD. LUNGS: Without rales. HEART: Reveals S1, S2. EXTREMITIES: Without edema. The glucose is 172, creatinine is 1.9. The hemoglobin is 8.7. EKG shows normal sinus rhythm with increased heart rate with no acute changes. IMPRESSION: 1. No evidence for acute coronary syndrome. 2. Stable angina. 3. Marked anemia. 4. Renal insufficiency. 5. Diabetes mellitus. 6. Hypertension. 7. Hypercholesterolemia. Given these findings, we will need to track her hemoglobin carefully. If the hemoglobin continues to decrease, the patient may need blood transfusions. In addition, we will obtain serial troponins. Jatinder Muñoz MD cc: [id number] TT: 12/30/2016 13:09:14 Confirmation # [id number] Dictation # [id number] en
[2016-12-30] MEDS: Levalbuterol 0.63 MG/3 ML Inhal Soln UD IH SCH ×2 (13:33→19:42)
--- NOTE | 2016-12-30 14:37 | CP.PCM.CON ---
History of Present Illness - History of Present Illness History of Present Illness: 81 yo F w/ pmh of htn, dm, CAD s/p stent (LAD KEMAL placed 2 months ago) and CKD IIIB, admitted with sepsis secondary to UTI; nephrology being consulted for acute renal failure; Patient reports feeling chills since 2 days prior to presentation, started before having an outpatient neck CT done 2 days ago; she reports having associated change in color of urine but denies any dysuria, foul urine odor or change in urinary frequency at the time; she otherwise had been feeling well with good appetite, no nausea/vomiting or diarrhea; With regard to the neck CT that was done with IV contrast, she reports having had a neck mass for quite some time with only some associated discomfort; otherwise, she denies any difficulty breathing or swallowing; she did have thyroid surgery many years ago but doesn't know for what reason; Review of Systems - Constitutional Constitutional: As Per HPI, Weight Loss Additional comments: 6 lb weight loss since past few months; - EENT Eyes: absent: Change in Vision Ears: Decreased Hearing Nose/Mouth/Throat: Epistaxis. absent: Change in Voice, Dysphagia, Sore Throat - Cardiovascular Cardiovascular: Dyspnea on Exertion. absent: Chest Pain, Leg Edema - Respiratory Respiratory: Cough, Dyspnea on Exertion - Gastrointestinal Gastrointestinal: absent: Abdominal Pain, Diarrhea, Nausea, Vomiting - Genitourinary Genitourinary: As Per HPI - Musculoskeletal Musculoskeletal: Back Pain. absent: Arthralgias Additional comments: Denies using pain meds; - Integumentary Integumentary: absent: Pruritus, Rash - Neurological Neurological: Headaches. absent: Vertigo - Psychiatric Psychiatric: Depression. absent: Suicidal Ideation Additional comments: gets depressed due to being along most of day; lives with daughter - Hematologic/Lymphatic Hematologic: absent: Easy Bleeding, Easy Bruising Past Patient History - Past Medical History & Family History Past Medical History?: Yes - Past Social History Smoking Status: Never Smoked - CARDIAC Hx Cardiac Disorders: (CAD, NH, Angioplasty) - PULMONARY Hx Respiratory Disorders: No - NEUROLOGICAL Hx Neurological Disorder: Yes (PHERIPHERAL NEUROPATHY) - HEENT Hx HEENT Problems: Yes Hx Blind: Yes (RIGHT EYE-INJURY) - RENAL Hx Chronic Kidney Disease: No - ENDOCRINE/METABOLIC Hx Diabetes Mellitus Type 2: Yes - HEMATOLOGICAL/ONCOLOGICAL Hx Blood Disorders: No - INTEGUMENTARY Hx Dermatological Problems: No - MUSCULOSKELETAL/RHEUMATOLOGICAL Hx Musculoskeletal Disorders: Yes Hx Falls: No - GASTROINTESTINAL Hx Gastrointestinal Disorders: Yes (POST LAP CONRAD 2-3-17,ACUTE CHOLEYCYSTITIS, GERD) - GENITOURINARY/GYNECOLOGICAL Hx Genitourinary Disorders: No Hx Reproductive Disorders: No - PSYCHIATRIC Hx Emotional Abuse: No Hx Physical Abuse: No Hx Substance Use: No - SURGICAL HISTORY Hx Cardiac Catheterization: Yes Hx Coronary Stent: Yes (X1) Hx Orthopedic Surgery: Yes Other/Comment: R eye surgery - ANESTHESIA Hx Anesthesia Reactions: No Hx Malignant Hyperthermia: No Meds Allergies/Adverse Reactions: Allergies Allergy/AdvReac Type Severity Reaction Status Date / Time Iodinated Contrast Media - Allergy NAUSEA Verified 12/29/16 05:05 Oral and - Medications Medications: Current Medications Acetaminophen (Tylenol 325mg Tab) 650 mg PO Q6H PRN PRN Reason: Fever >100.4 F Aspirin (Aspirin Chewable) 81 mg PO DAILY [facility] Last Admin: 12/30/16 09:05 Dose: 81 mg Atorvastatin Calcium (Lipitor) 40 mg PO DAILY [facility] Last Admin: 12/30/16 09:06 Dose: 40 mg Clopidogrel Bisulfate (Plavix) 75 mg PO DAILY [facility] Last Admin: 12/30/16 09:06 Dose: 75 mg Enoxaparin Sodium (Lovenox) 30 mg SC DAILY [facility] PRN Reason: Protocol Last Admin: 12/30/16 09:06 Dose: 30 mg Sodium Chloride (Sodium Chloride 0.9%) 1,000 mls @ 60 mls/hr IV .[id number] [facility] Last Admin: 12/30/16 09:07 Dose: 60 mls/hr Meropenem 1g/NS 100mL IVPB (Meropenem 1g/Ns 100ml Ivpb) 100 mls @ 100 mls/hr IVPB Q12H [facility] PRN Reason: Protocol Stop: 01/08/17 18:31 Last Admin: 12/30/16 07:53 Dose: 100 mls/hr Insulin Detemir (Levemir) 15 unit SC HS [facility] Last Admin: 12/29/16 22:48 Dose: 15 unit Insulin Human Lispro (Humalog Low) 0 units SC ACHS [facility] PRN Reason: Protocol Last Admin: 12/30/16 11:34 Dose: 4 units Levalbuterol HCl (Xopenex) 0.63 mg IH Q2 PRN PRN Reason: Shortness of Breath Levalbuterol HCl (Xopenex) 0.63 mg IH [id number] [facility] Last Admin: 12/30/16 13:33 Dose: 0.63 mg Losartan Potassium (Cozaar) 50 mg PO DAILY [facility] Last Admin: 12/30/16 09:06 Dose: 50 mg Multivitamins (Thera Tab) 1 tab PO DAILY [facility] Last Admin: 12/30/16 09:07 Dose: 1 tab Nystatin (Nystop Topical Powder) 0 gm TOP BID [facility] Last Admin: 12/30/16 11:55 Dose: 1 applic Pantoprazole Sodium (Protonix Ec Tab) 40 mg PO 0730,1630 [facility] Last Admin: 12/30/16 07:54 Dose: 40 mg Physical Exam - Constitutional Appears: Non-toxic, No Acute Distress - Head Exam Head Exam: NORMAL INSPECTION - Eye Exam Eye Exam: absent: Scleral icterus Additional comments: R eye opacified; - ENT Exam ENT Exam: Mucous Membranes Moist - Neck Exam Neck exam: Negative for: Lymphadenopathy Additional comments: large palpable non-tender L thyroid mass; - Respiratory Exam Respiratory Exam: Clear to Auscultation Bilateral, NORMAL BREATHING PATTERN. absent: Rales, Rhonchi, Wheezes - Cardiovascular Exam Cardiovascular Exam: REGULAR RHYTHM, +S1, +S2 - GI/Abdominal Exam GI & Abdominal Exam: Soft. absent: Distended, Tenderness - Extremities Exam Extremities exam: Positive for: normal capillary refill, normal inspection, pedal pulses present - Neurological Exam Neurological exam: Alert, Altered, CN II-XII Intact Additional comments: 5/5 motor strength in bilateral UE and LE - Psychiatric Exam Psychiatric exam: Normal Affect, Normal Mood - Skin Skin Exam: Normal Color, Warm Results - Vital Signs Recent Vital Signs: Last Vital Signs Temp 98.3 F 12/30/16 06:00 Pulse 97 H 12/30/16 06:00 Resp 18 12/30/16 06:00 BP 147/65 12/30/16 06:00 Pulse Ox 100 12/30/16 06:00 - Labs Result Diagrams: 12/30/16 06:00 12/30/16 06:00 Labs: Laboratory Results - last 24 hr 12/29/16 12/30/16 12/30/16 16:12 06:00 08:12 WBC 14.0 H RBC 3.05 L Hgb 8.7 L Hct 26.6 L MCV 87.2 MCH 28.5 MCHC 32.7 RDW 14.3 Plt Count 318 MPV 9.6 Gran % 75.0 H Lymph % (Auto) 13.9 L Rusk % (Auto) 8.7 H Eos % (Auto) 2.3 Baso % (Auto) 0.1 Gran # 10.47 H Lymph # 1.9 Rusk # 1.2 H Eos # 0.3 Baso # 0.02 Sodium 135 Potassium 4.3 Chloride 104 Carbon Dioxide 23 Anion Gap 12 BUN 27 H Creatinine 1.9 H Est GFR ( Amer) 31 Est GFR (Non-Af Amer) 25 POC Glucose (mg/dL) 355 H 172 H Random Glucose 197 H Calcium 7.4 L Total Bilirubin 0.3 AST 16 ALT 13 Alkaline Phosphatase 117 Total Protein 5.9 Albumin 2.4 L Globulin 3.5 Albumin/Globulin Ratio 0.7 L 12/30/16 11:31 WBC RBC Hgb Hct MCV MCH MCHC RDW Plt Count MPV Gran % Lymph % (Auto) [place] % (Auto) Eos % (Auto) Baso % (Auto) Gran # Lymph # Rusk # Eos # Baso # Sodium Potassium Chloride Carbon Dioxide Anion Gap BUN Creatinine Est GFR ( Amer) Est GFR (Non-Af Amer) POC Glucose (mg/dL) 338 H Random Glucose Calcium Total Bilirubin AST ALT Alkaline Phosphatase Total Protein Albumin Globulin Albumin/Globulin Ratio - Imaging and Cardiology CT scan - abdomen Status: Image reviewed by me Additional comment: IV contrast material seen in renal collecting system and parenchyma; Assessment & Plan (1) Acute renal failure Assessment and Plan: MELECIO on CKD IIIb; acute renal failure likely secondary to ATN from contrast induced nephropathy with contrast CT having been done 2 days ago; residual contrast seen in renal collecting system on abd CT done ~10 hours later but no evidence that giving IVF is of any benefit at this point; currently non- oliguric renal failure with stable electrolyte and volume status; no indication for MUSIC ENG[employer]VER at this time; -avoid further nephrotoxic agents -monitor I/O -avoid volume overload, can give IV lasix prn -avoid hypotension -hold losartan Status: Acute (2) Sepsis Assessment and Plan: Gram negative bacteremia secondary to UTI, on meropenem; hemodynamically stable ; in setting of acute renal failure with serum creatinine still increasing, cannot accurately estimate CrCl but it would likely be less than 25 mL/min; -Consider reducing meropenem dose by 50% and dose at 500 mg q12h, particularly if serum creatinine increases any further; -Cautious administration of IVF if BP remains stable (need to avoid volume overload) Status: Acute (3) Diabetes Assessment and Plan: On metformin and januvia at home; continue to avoid metformin due to risk of lactic acidosis; monitor for hypoglycemia in patient with marked reduction in GFR getting insulin; Status: Acute (4) HTN (hypertension) Assessment and Plan: SBP in 140's, would not try to lower further; -continue to hold losartan Status: Acute (5) CAD (coronary artery disease) Assessment and Plan: s/p recent LAD stent; on ASA, plavix and atorvastatin; continue per cardiology recs; Status: Acute
--- NOTE | 2016-12-30 17:58 | CP.PCM.PN ---
Subjective - Date & Time of Evaluation Date of Evaluation: 12/30/16 Time of Evaluation: 10:05 - Subjective Subjective: Comfortable in bed, less weakness, no nausea, no fevers overnight. Objective - Vital Signs/Intake and Output Vital Signs (last 24 hours): Temp Pulse Resp BP Pulse Ox 98.3 F 97 H 18 147/65 100 12/30/16 06:00 12/30/16 06:00 12/30/16 06:00 12/30/16 06:00 12/30/16 06:00 Intake and Output: 12/30/16 12/30/16 06:59 18:59 Intake Total 540 Output Total 400 Balance 140 - Medications Medications: Current Medications Acetaminophen (Tylenol 325mg Tab) 650 mg PO Q6H PRN PRN Reason: Fever >100.4 F Aspirin (Aspirin Chewable) 81 mg PO DAILY [facility] Last Admin: 12/30/16 09:05 Dose: 81 mg Atorvastatin Calcium (Lipitor) 40 mg PO DAILY [facility] Last Admin: 12/30/16 09:06 Dose: 40 mg Clopidogrel Bisulfate (Plavix) 75 mg PO DAILY [facility] Last Admin: 12/30/16 09:06 Dose: 75 mg Enoxaparin Sodium (Lovenox) 30 mg SC DAILY [facility] PRN Reason: Protocol Last Admin: 12/30/16 09:06 Dose: 30 mg Sodium Chloride (Sodium Chloride 0.9%) 1,000 mls @ 60 mls/hr IV .[id number] [facility] Last Admin: 12/30/16 09:07 Dose: 60 mls/hr Meropenem 1g/NS 100mL IVPB (Meropenem 1g/Ns 100ml Ivpb) 100 mls @ 100 mls/hr IVPB Q12H [facility] PRN Reason: Protocol Stop: 01/08/17 18:31 Last Admin: 12/30/16 07:53 Dose: 100 mls/hr Insulin Detemir (Levemir) 15 unit SC HS [facility] Last Admin: 12/29/16 22:48 Dose: 15 unit Insulin Human Lispro (Humalog Low) 0 units SC ACHS [facility] PRN Reason: Protocol Last Admin: 12/30/16 09:06 Dose: 1 units Levalbuterol HCl (Xopenex) 0.63 mg IH Q2 PRN PRN Reason: Shortness of Breath Levalbuterol HCl (Xopenex) 0.63 mg IH [id number] [facility] Losartan Potassium (Cozaar) 50 mg PO DAILY [facility] Last Admin: 12/30/16 09:06 Dose: 50 mg Multivitamins (Thera Tab) 1 tab PO DAILY [facility] Last Admin: 12/30/16 09:07 Dose: 1 tab Pantoprazole Sodium (Protonix Ec Tab) 40 mg PO 0730,1630 [facility] Last Admin: 12/30/16 07:54 Dose: 40 mg - Labs Labs: 12/30/16 06:00 12/30/16 06:00 PT 10.8 Seconds (9.9-11.8) 12/28/16 20:35 INR 1.00 (0.93-1.08) 12/28/16 20:35 APTT 27.5 Seconds (23.7-30.8) 12/28/16 20:35 - Constitutional Appears: Non-toxic, No Acute Distress - Head Exam Head Exam: NORMAL INSPECTION - ENT Exam ENT Exam: Mucous Membranes Moist - Neck Exam Neck Exam: absent: Lymphadenopathy, Meningismus - Respiratory Exam Respiratory Exam: Decreased Breath Sounds - Cardiovascular Exam Cardiovascular Exam: +S1, +S2 - GI/Abdominal Exam GI & Abdominal Exam: Soft. absent: Tenderness Assessment and Plan - Assessment and Plan (Free Text) Plan: Assessment Severe sepsis secondary to gram negative bacilli bacteremia, probably from pyelonephritis Leukocytosis, probably reactive from surgery, also from coronary artery disease acute acalculous cholecystitis S/P laparoscopic cholecystectomy POD #3 (OR 2016) HTN CAD S/P PCI - patient for cardiac cath tomorrow with probable stent placement DM GERD Plan Continue Merrem pending identification and sensitivities of the gram negative bacilli in the blood; follow up urine cx; will repeat blood cx Will monitor clinically
[2016-12-30] MEDS: Insulin Detemir 100 units/ml Vial (Levemir) SC SCH (22:52)
--- NOTE | 2016-12-31 01:36 | CP.PCM.PN ---
Subjective - Date & Time of Evaluation Date of Evaluation: 12/31/16 Time of Evaluation: 01:36 - Subjective Subjective: S:Patient was seen at bedside . She requesed cough medicine. States that she has dry cough. Has no other complaints. Denies phlegm, fever , chills. Pertinent medical record was reviewed. O: Last Vital Signs 3 Temp 97 F L 12/30/16 16:00 Pulse 103 H 12/30/16 16:00 Resp 18 12/30/16 16:00 BP 149/77 12/30/16 16:00 Pulse Ox 98 12/30/16 16:00 Awake, alert,not in distress. LUNGS:Normal breathing pattern. A:Cough. P:Robitussin as ordered. Objective - Vital Signs/Intake and Output Vital Signs (last 24 hours): Temp Pulse Resp BP Pulse Ox 97 F L 103 H 18 149/77 98 12/30/16 16:00 12/30/16 16:00 12/30/16 16:00 12/30/16 16:00 12/30/16 16:00 Intake and Output: 12/30/16 12/31/16 18:59 06:59 Intake Total 920 Balance 920 - Medications Medications: Current Medications Acetaminophen (Tylenol 325mg Tab) 650 mg PO Q6H PRN PRN Reason: Fever >100.4 F Aspirin (Aspirin Chewable) 81 mg PO DAILY [facility] Last Admin: 12/30/16 09:05 Dose: 81 mg Atorvastatin Calcium (Lipitor) 40 mg PO DAILY [facility] Last Admin: 12/30/16 09:06 Dose: 40 mg Clopidogrel Bisulfate (Plavix) 75 mg PO DAILY [facility] Last Admin: 12/30/16 09:06 Dose: 75 mg Enoxaparin Sodium (Lovenox) 30 mg SC DAILY [facility] PRN Reason: Protocol Last Admin: 12/30/16 09:06 Dose: 30 mg Sodium Chloride (Sodium Chloride 0.9%) 1,000 mls @ 60 mls/hr IV .[id number] [facility] Last Admin: 12/30/16 22:54 Dose: 60 mls/hr Meropenem 1g/NS 100mL IVPB (Meropenem 1g/Ns 100ml Ivpb) 100 mls @ 100 mls/hr IVPB Q12H [facility] PRN Reason: Protocol Stop: 01/08/17 18:31 Last Admin: 12/30/16 17:29 Dose: 100 mls/hr Insulin Detemir (Levemir) 15 unit SC HS [facility] Last Admin: 12/30/16 22:52 Dose: 15 unit Insulin Human Lispro (Humalog Low) 0 units SC ACHS [facility] PRN Reason: Protocol Last Admin: 12/30/16 22:51 Dose: 1 units Levalbuterol HCl (Xopenex) 0.63 mg IH Q2 PRN PRN Reason: Shortness of Breath Levalbuterol HCl (Xopenex) 0.63 mg IH [id number] [facility] Last Admin: 12/30/16 19:42 Dose: 0.63 mg Losartan Potassium (Cozaar) 50 mg PO DAILY [facility] Last Admin: 12/30/16 09:06 Dose: 50 mg Multivitamins (Thera Tab) 1 tab PO DAILY [facility] Last Admin: 12/30/16 09:07 Dose: 1 tab Nystatin (Nystop Topical Powder) 0 gm TOP BID [facility] Last Admin: 12/30/16 17:24 Dose: 1 applic Pantoprazole Sodium (Protonix Ec Tab) 40 mg PO 0730,1630 [facility] Last Admin: 12/30/16 16:49 Dose: 40 mg - Labs Labs: 12/30/16 06:00 12/30/16 06:00 PT 10.8 Seconds (9.9-11.8) 12/28/16 20:35 INR 1.00 (0.93-1.08) 12/28/16 20:35 APTT 27.5 Seconds (23.7-30.8) 12/28/16 20:35
[2016-12-31] MEDS: guaiFENesin 100 mg/5 ml Syrup UD PO PRN ×2 (01:43→09:39)
[2016-12-31] MEDS: Levalbuterol 0.63 MG/3 ML Inhal Soln UD IH SCH ×4 (02:20→20:50)
[2016-12-31] MEDS: Meropenem 1g/NS 100mL IVPB 100 ML IVPB SCH (06:15)
[2016-12-31 07:15] LABS: HEMATOCRIT 26.1 % (36.0-48.0); MEAN CELL VOLUME 87.6 fL (80.0-105.0); MEAN CORPUSCULAR HEMOGLOBIN 28.9 pg (25.0-35.0); MEAN PLATELET VOLUME 9.5 fl (7.0-11.0); RED CELL DISTRIBUTION WIDTH 14.6 % (11.5-14.5); WHITE BLOOD COUNT 11.3 10^3/ul (4.5-11.0)
[2016-12-31 07:34] LABS: ALB/GLOB RATIO 0.7 (1.1-1.8); BILIRUBIN,TOTAL 0.3 mg/dL (0.2-1.3); CALCIUM 7.5 mg/dL (8.4-10.5); POTASSIUM 4.3 mmol/L (3.6-5.0); TOTAL PROTEIN 6.2 g/dL (5.8-8.3)
[2016-12-31] MEDS: Insulin Lispro (humaLOG) LOW Coverage SC SCH (07:46)
[2016-12-31] MEDS ORDERED: Insulin Detemir 100 units/ml Vial (Levemir) SC SCH (08:40)
--- NOTE | 2016-12-31 09:19 | PN ---
DATE: 12/31/2016 SUBJECTIVE: The patient appears comfortable this morning. She is not short of breath at rest. OBJECTIVE: VITAL SIGNS: Temperature is 97.0, pulse of proximally 80-90, respiratory rate 18. Blood pressure 149/77. Oxygen saturation on room air is 98%. HEENT: Normocephalic, atraumatic. No JVD. CARDIOVASCULAR: Positive S1, S2. No S3. LUNGS: Clear bilaterally. EXTREMITIES: Mild edema. No cyanosis, no clubbing. Calves are nontender to palpation. GASTROINTESTINAL: Abdomen is soft. It is much less distended and much less tender to palpation. Bowel sounds are positive. SKIN: No acute rash. NEUROLOGIC: Limited at the present time. IMPRESSION: 1. Acute pyelonephritis. 2. Sepsis syndrome. 3. Anemia. 4. Renal insufficiency. 5. Minimal bronchospasm. 6. Coronary artery disease. PLAN: The patient appears very comfortable this morning. She is not short of breath at rest. She states to much less cough. She states she is feeling much better overall. On physical exam, her lungs remain clear. In addition, the oxygen saturation on room air is now 98%. I will continue with the current nebulizer treatments for now. I would continue with the antibiotic coverage as per infectious disease. Temperatures have resolved. The leukocytosis is resolving. Renal and cardiology evaluations are also noted. Clinical status of the patient is significantly improved. She is working with physical therapy. I will discuss the above with Dr. Ward. Justino Lima MD cc: [id number] TT: 12/31/2016 09:18:01 Confirmation # [id number] Dictation # [id number] an RAMEZ
[2016-12-31] MEDS: Nystatin 100,000 Units/gm Topical Pow(15 gm) TOP SCH ×2 (09:39→17:16)
[2016-12-31] MEDS: Pantoprazole 40 mg EC Tab PO SCH ×2 (09:39→17:16)
[2016-12-31] MEDS: Enoxaparin 30 mg Syringe SC SCH (09:39)
[2016-12-31] MEDS: Multivitamin Therapeutic Tab PO SCH (09:40)
--- NOTE | 2016-12-31 09:47 | PN ---
DATE: 12/31/2016 I saw her resting in bed. She slept fairly well. Doing a little bit better overall. Talking well. Has her appetite. She is on IV antibiotics. PHYSICAL EXAMINATION: VITAL SIGNS: Temperature 97, 103 pulse, 149/77 blood pressure, 18 respiratory rate, 98% O2 sat on ro om air. HEENT: Head is atraumatic, normocephalic. Right eye blind. Throat moist. NECK: Supple. HEART: Regular rate. LUNGS: Decreased breath sounds but clear. ABDOMEN: Soft, obese, nontender, positive bowel sounds. No guarding, no rebound. EXTREMITIES: No edema. MEDICATIONS: She is currently on aspirin, Cozaar. I changed her insulin to high dose coverage from low. I increased the Levemir from 15 to 20 units at nighttime. Lipitor, Lovenox, Merrem IV, nystati n, Plavix, Protonix, Robitussin, IV fluids will be maintained at 60, Thera-Tabs, acetaminophen and Xo penex. She is here for pyelonephritis, renal insufficiency, urinary tract infection, hypertension, coronary artery disease, diabetes, atrial fibrillation, cough. LABORATORY DATA: She has a white count of 11.3 (best it has been), 8.6 hemoglobin, 26.1 hematocrit, with 375 platelets. If hemoglobin drops below 8, I will transfuse her. INR is 1. She has a 135 sod ium, potassium 4.3, BUN is 24, creatinine 1.8 (which are improving from 29 and 1.9), sugar is high at 297 (I increased her Levemir and increased her coverage), and her calcium is 7.5. Total bili is 0.3 , AST is 22, ALT is 29, alkaline phosphatase is 124. She is being seen by infectious disease, cardiology, pulmonology. She is septic, severe, with gram-positive blood cultures; leukocytosis, diabetes, coronary artery dis ease, hypertension. Continue with IV antibiotics. There is a recommendation to go to TCU. Will try and get her there to jack to finish out the antibiotics, blood sugar control and physical therapy. Jonah Ward DO cc: [id number] TT: 12/31/2016 09:47:27 Confirmation # [id number] Dictation # [id number] mn
[2016-12-31] MEDS: Insulin Reg-HIGH-Coverage SC SCH ×3 (12:06→22:38)
--- NOTE | 2016-12-31 13:54 | PN ---
DATE: 12/31/2016 SUBJECTIVE: The patient is in a chair, ate lunch without issues. Is comfortable. Complaining of oc casional indigestion. PHYSICAL EXAMINATION: VITAL SIGNS: Blood pressure is 151/73. The heart rate is in the 90s. NECK: Negative JVD. LUNGS: Without rales. HEART: Reveals S1, S2. EXTREMITIES: Without edema. LABORATORY DATA: The hemoglobin is 8.6. Chemistries: Glucose is 297. BUN and creatinine is 24 and 1.8. IMPRESSION: 1. Stable angina. 2. Renal insufficiency. 3. Diabetes mellitus. 4. History of percutaneous transluminal coronary angioplasty and stent in the past. 5. Hypercholesterolemia. PLAN: Given these findings, her hemoglobin is stable. No evidence for ongoing coronary ischemia. Jatinder Muñoz MD cc: [id number] TT: 12/31/2016 13:54:00 Confirmation # [id number] Dictation # [id number] sn
--- NOTE | 2016-12-31 16:25 | CP.PCM.PN ---
Subjective - Date & Time of Evaluation Date of Evaluation: 12/31/16 Time of Evaluation: 09:30 - Subjective Subjective: Comfortable in bed, not in distress, no fevers overnight, no nausea. Objective - Vital Signs/Intake and Output Vital Signs (last 24 hours): Temp Pulse Resp BP Pulse Ox 98.7 F 98 H 17 151/73 H 100 12/31/16 06:00 12/31/16 06:00 12/31/16 06:00 12/31/16 06:00 12/31/16 06:00 Intake and Output: 12/31/16 12/31/16 06:59 18:59 Intake Total 720 920 Balance 720 920 - Medications Medications: Current Medications Acetaminophen (Tylenol 325mg Tab) 650 mg PO Q6H PRN PRN Reason: Fever >100.4 F Aspirin (Aspirin Chewable) 81 mg PO DAILY [facility] Last Admin: 12/31/16 09:38 Dose: 81 mg Atorvastatin Calcium (Lipitor) 40 mg PO DAILY [facility] Last Admin: 12/31/16 09:38 Dose: 40 mg Clopidogrel Bisulfate (Plavix) 75 mg PO DAILY [facility] Last Admin: 12/31/16 09:39 Dose: 75 mg Enoxaparin Sodium (Lovenox) 30 mg SC DAILY [facility] PRN Reason: Protocol Last Admin: 12/31/16 09:39 Dose: 30 mg Guaifenesin (Robitussin) 100 mg PO Q4H PRN PRN Reason: Cough Last Admin: 12/31/16 09:39 Dose: 100 mg Sodium Chloride (Sodium Chloride 0.9%) 1,000 mls @ 60 mls/hr IV .[id number] [facility] Last Admin: 12/30/16 22:54 Dose: 60 mls/hr Meropenem 1g/NS 100mL IVPB (Meropenem 1g/Ns 100ml Ivpb) 100 mls @ 100 mls/hr IVPB Q12H [facility] PRN Reason: Protocol Stop: 01/08/17 18:31 Last Admin: 12/31/16 06:15 Dose: 100 mls/hr Insulin Detemir (Levemir) 20 unit SC HS [facility] Insulin Human Regular (Humulin R High) 0 units SC ACHS [facility] PRN Reason: Protocol Last Admin: 12/31/16 12:06 Dose: 12 units Levalbuterol HCl (Xopenex) 0.63 mg IH Q2 PRN PRN Reason: Shortness of Breath Levalbuterol HCl (Xopenex) 0.63 mg IH [id number] [facility] Last Admin: 12/31/16 14:17 Dose: 0.63 mg Losartan Potassium (Cozaar) 50 mg PO DAILY [facility] Last Admin: 12/30/16 09:06 Dose: 50 mg Multivitamins (Thera Tab) 1 tab PO DAILY [facility] Last Admin: 12/31/16 09:40 Dose: 1 tab Nystatin (Nystop Topical Powder) 0 gm TOP BID [facility] Last Admin: 12/31/16 09:39 Dose: 1 applic Pantoprazole Sodium (Protonix Ec Tab) 40 mg PO 0730,1630 [facility] Last Admin: 12/31/16 09:39 Dose: 40 mg - Labs Labs: 12/31/16 06:30 12/31/16 06:30 PT 10.8 Seconds (9.9-11.8) 12/28/16 20:35 INR 1.00 (0.93-1.08) 12/28/16 20:35 APTT 27.5 Seconds (23.7-30.8) 12/28/16 20:35 - Constitutional Appears: Non-toxic, No Acute Distress - Head Exam Head Exam: NORMAL INSPECTION - ENT Exam ENT Exam: Mucous Membranes Moist - Neck Exam Neck Exam: absent: Lymphadenopathy, Meningismus - Respiratory Exam Respiratory Exam: Decreased Breath Sounds - Cardiovascular Exam Cardiovascular Exam: +S1, +S2 - GI/Abdominal Exam GI & Abdominal Exam: Soft. absent: Tenderness Assessment and Plan - Assessment and Plan (Free Text) Plan: Assessment Severe sepsis secondary to E. coli bacteremia, probably from pyelonephritis, slowly improving Leukocytosis, probably reactive from surgery, also from coronary artery disease acute acalculous cholecystitis S/P laparoscopic cholecystectomy POD #3 (OR 2016) HTN CAD S/P PCI - patient for cardiac cath tomorrow with probable stent placement DM GERD Plan switch to Rocephin (day 2 of antibiotics); repeat blood cx are negative Will continue to monitor clinically
[2016-12-31] MEDS: cefTRIAXone 1 gm 100 ML IVPB SCH (17:16)
[2016-12-31] MEDS: Sodium Chloride 0.9% 1,000 ML IV SCH (17:17)
--- NOTE | 2016-12-31 17:54 | PN ---
DATE: 12/31/2016 An 81-year-old female with past medical history of hypertension, diabetes, CAD, status post stent wit h LAD drug-eluting stent placed 2 months ago and CKD stage IIIB, admitted with sepsis secondary to UT I. The patient initially denying feeling short of breath, but after being examined and told that she looks winded, admits that she is a little short of breath currently. Reports urinating well, report ing cough since the past couple of months. VITAL SIGNS: This morning, blood pressure 151/73, heart rate of 98, respiration 17, temperature 98.7 , saturation 100% on room air. LABORATORY DATA: White count 11.3, hemoglobin 8.6, hematocrit 26.1, platelets 375. Chemistry panel: Sodium 135, potassium 4.3, chloride 106, bicarb 23, BUN 24, creatinine 1.8, glucose 297, calcium 7. 5, albumin 2.6. Urine culture and blood culture growing E. coli sensitive to ceftriaxone and Cipro. PHYSICAL EXAMINATION: GENERAL: No apparent distress, able to converse coherently in full sentences. HEENT: Moist mucous membranes. CHEST: Clear to auscultation bilaterally. No rales, no rhonchi, no wheezes. HEART: S1, S2 positive. No murmurs, no rubs, no gallops. ABDOMEN: Soft, mild generalized tenderness, nondistended. EXTREMITIES: Bilateral moderate lower leg edema. ASSESSMENT: 1. Acute renal failure, acute kidney injury on chronic kidney disease IIIB. Acute kidney injury lik leti secondary to acute tubular necrosis from contrast-induce nephropathy. No evidence of hypotension to indicate ischemic acute tubular necrosis from sepsis. Appears to have volume excess on exam with patient mildly tachypneic and bilateral lower extremity edema. Renal function appears stabilized wi th serum creatinine having decreased from 1.9 to 1.8 today, baseline creatinine about 1.3. We will h old IV fluids, give dose of Lasix 20 mg IV push p.r.n., continue to hold losartan until renal functio n improves further. 2. Sepsis. Escherichia coli bacteremia secondary to urinary tract infection, was on meropenem, bein g switched to ceftriaxone today per infectious disease. No dose reduction needed for renal failure. 3. Diabetes, on metformin and Januvia at home. Currently, getting basal and sliding scale insulin. Continue to hold metformin to avoid lactic acidosis. 4. Hypertension. Losartan currently on hold. Will benefit from diuresis. Should be on beta blocke r in the setting of known coronary artery disease. We will start small dose of beta aele for card ioprotective effect after conferring with cardiology. 5. Coronary artery disease, status post recent left anterior descending stent, on aspirin, Plavix an d atorvastatin. Continue per cardiology recommendations. Reza Mayberry MD cc: [id number] TT: 12/31/2016 17:53:18 Confirmation # [id number] Dictation # [id number] tn
[2016-12-31 20:51] VITALS: RESP 20
[2017-01-01] MEDS: Levalbuterol 0.63 MG/3 ML Inhal Soln UD IH SCH ×4 (01:37→19:47)
[2017-01-01] MEDS: guaiFENesin 100 mg/5 ml Syrup UD PO PRN (05:31)
[2017-01-01 08:18] LABS: ALB/GLOB RATIO 0.7 (1.1-1.8); BILIRUBIN,TOTAL 0.4 mg/dL (0.2-1.3); CALCIUM 8.2 mg/dL (8.4-10.5); POTASSIUM 4.2 mmol/L (3.6-5.0); TOTAL PROTEIN 6.8 g/dL (5.8-8.3)
[2017-01-01 08:25] LABS: HEMATOCRIT 28.5 % (36.0-48.0); MEAN CELL VOLUME 86.6 fL (80.0-105.0); MEAN CORPUSCULAR HGB CONC 32.3 g/dl (31.0-37.0); MEAN PLATELET VOLUME 9.4 fl (7.0-11.0); RED CELL DISTRIBUTION WIDTH 14.5 % (11.5-14.5); WHITE BLOOD COUNT 10.5 10^3/ul (4.5-11.0)
--- NOTE | 2017-01-01 08:34 | PN ---
DATE: 01/01/2017 The patient is complaining of cough. Without the cough, the patient is feeling well. No chest pain noted. No shortness of breath noted. PHYSICAL EXAMINATION: VITAL SIGNS: Blood pressure is 160/80, the heart rate is in the 90s. NECK: Negative JVD. LUNGS: No rales noted. HEART: Revealed S1, S2. EXTREMITIES: Without edema. The hemoglobin is 8.6 with a white count of 11.3. Glucose is 152. IMPRESSION: 1. Renal insufficiency. 2. Stable angina. 3. Diabetes mellitus. 4. Percutaneous transluminal coronary angioplasty and stent of a left anterior descending stenosis 6 weeks ago. 5. Sepsis. 6. Hypertension. Given these findings, the patient is hemodynamically stable. There is no evidence for acute coronary syndrome. Jatinder Muñoz MD cc: [id number] TT: 01/01/2017 08:33:34 Confirmation # [id number] Dictation # [id number] en
[2017-01-01 08:39] VITALS: TEMP 98.2; O2SAT 98
[2017-01-01] MEDS: Insulin Reg-HIGH-Coverage SC SCH ×3 (08:47→17:06)
[2017-01-01] MEDS: Pantoprazole 40 mg EC Tab PO SCH ×2 (08:48→17:07)
--- NOTE | 2017-01-01 08:52 | PN ---
DATE: 01/01/2017 SUBJECTIVE: The patient appears very comfortable at rest. She is not short of breath. PHYSICAL EXAMINATION: VITAL SIGNS: Temperature is 98.4, pulse 90, respirations 18/20, blood pressure 160/80. Oxygen saturation on room air is 99%. HEENT: Normocephalic, atraumatic. No JVD. CARDIOVASCULAR: Positive S1, S2. No S3. LUNGS: Clear bilaterally. EXTREMITIES: Mild edema. No cyanosis, no clubbing. Calves are nontender to palpation. GASTROINTESTINAL: Abdomen is soft. It is not distended and minimally tender to palpation. Bowel sounds are positive. SKIN: No acute rash. NEUROLOGIC: Limited at the present time. IMPRESSION: 1. Acute pyelonephritis. 2. Sepsis syndrome. 3. Anemia. 4. Renal insufficiency. 5. Minimal bronchospasm. 6. Coronary artery disease. PLAN: The patient appears very comfortable this morning. She is not short of breath at rest. She has much less cough. She states she is feeling better overall. On physical exam, her lungs remain clear. Oxygen saturation on room air is 99%. I will continue with the current nebulizer treatments for now. I would continue with the antibiotic coverage as per infectious disease. Temperatures have resolved. The leukocytosis is resolving. I would continue with the cardiology and renal evaluations. Inputs are noted. At this point in time, no additional pulmonary intervention is needed or warranted. I will thus follow up on this patient again as requested. Please call me for any additional pulmonary questions or problems with this patient. Thank you very much for allowing me to participate in the care of this patient. Justino Lima MD cc: [phone] TT: 01/01/2017 08:51:25 Confirmation # [id number] Dictation # [id number] kristi MYRICK
--- NOTE | 2017-01-01 09:01 | PN ---
DATE: 01/01/2017 I saw her resting comfortably in bed this morning. She slept fairly well. She is still a little bit weak. Has not really done much with her body. She needs physical therapy. MEDICATIONS: She is on aspirin, losartan, insulin, Lasix IV, Levemir, Lipitor, Lopressor, Lovenox, n ystatin, Plavix, Protonix, Robitussin, Rocephin IV, IV fluids, multivitamin, Tylenol, Xopenex, and in sulin. PHYSICAL EXAMINATION: VITAL SIGNS: 98.4 temp, 90 pulse, 160/80 blood pressure, 20 respiratory rate, 99% O2 sat on room air . HEENT: Head is atraumatic, normocephalic. HEART: Regular rate. LUNGS: Clear to auscultation. ABDOMEN: Soft, obese. EXTREMITIES: No edema. She is weak. LABORATORY DATA: She has a 135 sodium, potassium 4.3. Last blood sugar was 152, finally doing lobito r. Calcium 7.5. AST is 22, ALT is 29, alkaline phosphatase is 124. Her white count is down to 11.3 , hemoglobin is down to 8.6 (if that drops any lower, she might need to be transfused), 26.1 hematocr it with 375 platelets. I am thinking she might need physical therapy, possible transfusion. Continue IV antibiotics. She is here for severe sepsis, pyelonephritis, renal insufficiency, hypertension, coronary artery dis ease, diabetes, atrial fibrillation, urinary tract infection. Will see if we can get to TCU today. She needs to have more IV antibiotics as per infectious disease . Continue with aggressive treatment and care. Jonah Ward DO cc: [id number] TT: 01/01/2017 09:00:51 Confirmation # [id number] Dictation # [id number] [email or web address]
[2017-01-01] MEDS ORDERED: Lidocaine 2% Inj (20ml) ONE (09:14)
[2017-01-01] MEDS ORDERED: Heparin 0 ML IV ONE (09:14)
[2017-01-01] MEDS: Enoxaparin 30 mg Syringe SC SCH (10:30)
[2017-01-01] MEDS: cefTRIAXone 1 gm 100 ML IVPB SCH (10:30)
[2017-01-01] MEDS: Multivitamin Therapeutic Tab PO SCH (10:30)
[2017-01-01] MEDS: Nystatin 100,000 Units/gm Topical Pow(15 gm) TOP SCH ×2 (10:31→17:07)
--- NOTE | 2017-01-01 16:55 | CP.PCM.PN ---
Subjective - Date & Time of Evaluation Date of Evaluation: 01/01/17 Time of Evaluation: 09:40 - Subjective Subjective: Comfortable in bed, no fevers overnight, no abdominal pain, no nausea. Objective - Vital Signs/Intake and Output Vital Signs (last 24 hours): Temp Pulse Resp BP Pulse Ox 98.2 F 100 H 20 137/62 98 01/01/17 06:00 01/01/17 10:29 01/01/17 06:00 01/01/17 10:29 01/01/17 06:00 Intake and Output: 01/01/17 01/01/17 06:59 18:59 Intake Total 640 960 Output Total 400 Balance 240 960 - Medications Medications: Current Medications Acetaminophen (Tylenol 325mg Tab) 650 mg PO Q6H PRN PRN Reason: Fever >100.4 F Aspirin (Aspirin Chewable) 81 mg PO DAILY [facility] Last Admin: 01/01/17 10:30 Dose: 81 mg Atorvastatin Calcium (Lipitor) 40 mg PO DAILY [facility] Last Admin: 01/01/17 10:30 Dose: 40 mg Clopidogrel Bisulfate (Plavix) 75 mg PO DAILY [facility] Last Admin: 01/01/17 10:30 Dose: 75 mg Enoxaparin Sodium (Lovenox) 30 mg SC DAILY [facility] PRN Reason: Protocol Last Admin: 01/01/17 10:30 Dose: 30 mg Guaifenesin (Robitussin) 100 mg PO Q4H PRN PRN Reason: Cough Last Admin: 01/01/17 05:31 Dose: 100 mg Sodium Chloride (Sodium Chloride 0.9%) 1,000 mls @ 60 mls/hr IV .[id number] [facility] Last Admin: 12/31/16 17:17 Dose: 60 mls/hr Ceftriaxone Sodium (Rocephin 1 Gram Ivpb) 100 mls @ 100 mls/hr IVPB DAILY [facility] PRN Reason: Protocol Stop: 01/12/17 16:31 Last Admin: 01/01/17 10:30 Dose: 100 mls/hr Insulin Detemir (Levemir) 20 unit SC HS [facility] Last Admin: 12/31/16 22:39 Dose: 20 unit Insulin Human Regular (Humulin R High) 0 units SC ACHS [facility] PRN Reason: Protocol Last Admin: 01/01/17 12:29 Dose: 4 units Levalbuterol HCl (Xopenex) 0.63 mg IH Q2 PRN PRN Reason: Shortness of Breath Levalbuterol HCl (Xopenex) 0.63 mg IH [id number] [facility] Last Admin: 01/01/17 13:53 Dose: 0.63 mg Losartan Potassium (Cozaar) 50 mg PO DAILY [facility] Last Admin: 12/30/16 09:06 Dose: 50 mg Metoprolol Tartrate (Lopressor) 25 mg PO BID [facility] Last Admin: 01/01/17 10:29 Dose: 25 mg Multivitamins (Thera Tab) 1 tab PO DAILY [facility] Last Admin: 01/01/17 10:30 Dose: 1 tab Nystatin (Nystop Topical Powder) 0 gm TOP BID [facility] Last Admin: 01/01/17 10:31 Dose: 1 applic Pantoprazole Sodium (Protonix Ec Tab) 40 mg PO 0730,1630 [facility] Last Admin: 01/01/17 08:48 Dose: 40 mg - Labs Labs: 01/01/17 06:30 01/01/17 06:30 PT 10.8 Seconds (9.9-11.8) 12/28/16 20:35 INR 1.00 (0.93-1.08) 12/28/16 20:35 APTT 27.5 Seconds (23.7-30.8) 12/28/16 20:35 - Constitutional Appears: Non-toxic, No Acute Distress - Head Exam Head Exam: NORMAL INSPECTION - ENT Exam ENT Exam: Mucous Membranes Moist - Neck Exam Neck Exam: absent: Lymphadenopathy, Meningismus - Respiratory Exam Respiratory Exam: Decreased Breath Sounds - Cardiovascular Exam Cardiovascular Exam: +S1, +S2 - GI/Abdominal Exam GI & Abdominal Exam: Soft. absent: Tenderness Assessment and Plan - Assessment and Plan (Free Text) Plan: Assessment Severe sepsis secondary to E. coli bacteremia, probably from pyelonephritis, clinically improving Leukocytosis, probably reactive from surgery, also from coronary artery disease history of acute acalculous cholecystitis S/P laparoscopic cholecystectomy (OR ) HTN CAD S/P PCI DM GERD Plan continue Rocephin (day 4 of antibiotics); repeat blood cx are negative; when ready for discharge, the patient can be switched to PO Ciprofloxacin to complete the 14 day course Will continue to monitor clinically
[2017-01-01 17:09] VITALS: BP 150/68; PULSE 105
--- NOTE | 2017-01-02 08:29 | PN ---
DATE: 01/01/2017 An 81-year-old female with past medical history of hypertension, diabetes, CAD status post stent with LAD drug-eluting stent placed 2 months ago and CKD stage IIIB, admitted with sepsis secondary to UTI . Nephrology consulted for acute renal failure. The patient reports breathing is improved today, re porting some difficulty swallowing large boluses of food. Denies any change in her voice over time. Denies any dysuria. VITAL SIGNS: This morning, blood pressure 137/62, heart rate of 100, respirations 20, temperature 98 .2, O2 sat 98% on room air. LABORATORY DATA: This morning, WBC 10.5, hemoglobin 9.2, hematocrit 28.5, platelets 448. Chemistry panel: Sodium 137, potassium 4.2, chloride 105, bicarb 23, BUN 20, creatinine 1.6, glucose 143, calc ium 8.2, albumin 2.9. PHYSICAL EXAMINATION: GENERAL: No apparent distress, able to converse coherently in full sentences. HEENT: Moist mucous membranes. No scleral icterus. CHEST: Clear to auscultation bilaterally. No rales, no rhonchi, no wheezes. HEART: S1, S2 positive, no murmurs, no gallops, no rubs. ABDOMEN: Soft, nondistended, nontender. EXTREMITIES: Mild to moderate bilateral lower leg edema. ASSESSMENT: 1. Acute renal failure, MELECIO on CKD IIIB. MELECIO likely secondary to ATN from contrast induced nephropa thy, currently improving, appears to have mild volume excess on exam, but overall appears comfortable , no respiratory distress. Serum creatinine decreasing to 1.6 today, baseline is around 1.3. Contin ue to hold losartan until renal function improves further. Continue to hold IV fluids. Can give Las ix 20 mg IV push p.r.n. short of breath. 2. Sepsis, E. coli bacteremia secondary to UTI, on ceftriaxone. No dose reduction needed for renal failure. 3. Diabetes, on Metformin and Januvia at home. Currently, getting basal and sliding scale insulin. Continue to hold Metformin to avoid lactic acidosis, until renal function improves further. 4. Hypertension, losartan currently on hold, metoprolol 25 mg b.i.d. started yesterday due to mild b orderline tachycardia. Continue the same. 5. Coronary artery disease status post recent left anterior descending drug-eluting stent, on aspiri n, Plavix, atorvastatin. Continue per cardiology recommendations. Reza Mayberry MD cc: [id number] TT: 01/01/2017 19:42:32 Confirmation # [id number] Dictation # [id number] mn
== END 2017-01-01 21:21 | DRG 871 ==
LOC: ED 19:54 → ERH 12-29 00:31 → 3RSO 12-29 02:42
PROVIDERS: ADMIT Family Medicine; ATTEND Family Medicine
PROC: 3E0F7GC Introduction of Other Therapeutic Substance into Respiratory Tract, Via Natural or Artificial Opening (ICD-10-PCS; principal; 2016-12-30)
DX: A41.51 Sepsis due to Escherichia coli [E. coli] (principal); N17.0 Acute kidney failure with tubular necrosis; N10 Acute pyelonephritis; R65.20 Severe sepsis without septic shock; E11.22 Type 2 diabetes mellitus with diabetic chronic kidney disease; E11.65 Type 2 diabetes mellitus with hyperglycemia; N18.3 Chronic kidney disease, stage 3 (moderate); I12.9 Hypertensive chronic kidney disease with stage 1 through stage 4 chronic kidney disease, or unspecified chronic kidney disease; N14.1 Nephropathy induced by other drugs, medicaments and biological substances; T50.8X5A Adverse effect of diagnostic agents, initial encounter; K21.9 Gastro-esophageal reflux disease without esophagitis; I25.119 Atherosclerotic heart disease of native coronary artery with unspecified angina pectoris; D64.9 Anemia, unspecified; E78.00 Pure hypercholesterolemia, unspecified; R05 Cough; I48.91 Unspecified atrial fibrillation; I25.2 Old myocardial infarction; Z79.02 Long term (current) use of antithrombotics/antiplatelets; Z79.84 Long term (current) use of oral hypoglycemic drugs; Z95.5 Presence of coronary angioplasty implant and graft; Z90.49 Acquired absence of other specified parts of digestive tract; Z96.651 Presence of right artificial knee joint; Z91.041 Radiographic dye allergy status

== ENCOUNTER 2017-01-01 21:09 | Inpatient (IN) | payer OTHER ==
[2017-01-01 21:37] VITALS: BMI 24.3
[2017-01-01] MEDS ORDERED: Levalbuterol 0.63 MG/3 ML Inhal Soln UD IH PRN (21:47)
[2017-01-01] MEDS: Insulin Reg-HIGH-Coverage SC SCH (23:26)
[2017-01-01] MEDS: Insulin Detemir 100 units/ml Vial (Levemir) SC SCH (23:40)
[2017-01-02] MEDS: Levalbuterol 0.63 MG/3 ML Inhal Soln UD IH SCH ×4 (02:11→20:36)
[2017-01-02] MEDS: cefTRIAXone 1 gm 100 ML IVPB SCH (05:33)
[2017-01-02] MEDS: Pantoprazole 40 mg EC Tab PO SCH ×2 (05:33→18:00)
[2017-01-02] MEDS: Enoxaparin 30 mg Syringe SC SCH (05:33)
[2017-01-02] MEDS: guaiFENesin 100 mg/5 ml Syrup UD PO PRN ×2 (05:40→19:45)
[2017-01-02] MEDS: Insulin Reg-HIGH-Coverage SC SCH ×4 (06:45→22:30)
[2017-01-02 07:05] LABS: ADD MANUAL DIFF? NO
[2017-01-02 07:19] LABS: BASO # 0.04 K/mm3 (0.0-2.0); BASO % 0.4 % (0.0-3.0); EOS # 0.7 (0.0-0.7); EOS % 6.5 % (1.5-5.0); GRAN # 6.94 (1.4-6.5); GRAN % 65.9 % (50.0-68.0); HEMATOCRIT 28.5 % (36.0-48.0); LYMPH # 2.1 (1.2-3.4); LYMPH % 19.5 % (22.0-35.0); MEAN CELL VOLUME 86.9 fL (80.0-105.0); MEAN CORPUSCULAR HEMOGLOBIN 28.4 pg (25.0-35.0); MEAN CORPUSCULAR HGB CONC 32.6 g/dl (31.0-37.0); MEAN PLATELET VOLUME 9.4 fl (7.0-11.0); MONO # 0.8 (0.1-0.6); MONO % 7.7 % (1.0-6.0); PLATELET COUNT 485 10^3/uL (120.0-450.0); RED CELL DISTRIBUTION WIDTH 14.5 % (11.5-14.5); WHITE BLOOD COUNT 10.5 10^3/ul (4.5-11.0)
[2017-01-02 07:37] LABS: ALB/GLOB RATIO 0.8 (1.1-1.8); BILIRUBIN,TOTAL 0.4 mg/dL (0.2-1.3); CALCIUM 8.4 mg/dL (8.4-10.5); POTASSIUM 4.2 mmol/L (3.6-5.0); TOTAL PROTEIN 6.5 g/dL (5.8-8.3)
--- NOTE | 2017-01-02 09:29 | HP ---
I know the patient quite well. She just came from the hospital side. Now she is in the transitional care unit. She came into the hospital being an 81-year-old female with shaking, not feeling well, s hortness of breath, abdominal pain, chest pain, multiple issues. Went to the hospital part, was in [facility] for severe sepsis, pyelonephritis, cough, renal insufficiency, urinary tract infection, h ypertension, coronary artery disease, diabetes, AFib. She finally did well enough that she could be transferred to the TCU for IV antibiotics and physical therapy. PAST MEDICAL HISTORY: Hypertension, diabetes, coronary artery disease with a stent, chronic kidney d isease, GERD. She had a cholecystectomy. She had LAD KEMAL placement 1 month ago. Her abdominal pain is better. She has history of unstable angina. 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 She had cardiac stents, right knee replacement, right eye surgery. She has had a [employer] copy. No smoking, no drinking, no drugs. ALLERGIES: No known drug allergies. She is presently on a lot of medications. I will go through them. She is on aspirin, Cozaar, insuli n, Levemir, Lipitor, Lopressor, Lovenox, Mycostatin, Plavix, Protonix, Robitussin, Rocephin IV, Thera -Tabs, Tylenol, Xopenex. REVIEW OF SYSTEMS: HEENT: There is no acute change in vision. 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 Throat is moist. NECK: Supple. HEART: No chest pain or palpitations at this time. LUNGS: No coughing, congestion or shortness of breath. GASTROINTESTINAL: No abdominal pain. It is much better. She is moving her bowels. No nausea or vo miting. EXTREMITIES: She is a little bit weak, but she is moving all extremities. SKIN: For the most part is intact. PHYSICAL EXAMINATION: VITAL SIGNS: She has a 97.9 temp, 95 pulse, 120/55 blood pressure, 20 respiratory rate, and 98% O2 s at. HEENT: Head is atraumatic, normocephalic. Right eye blind. Extraocular muscles are intact. Throat is moist, no erythema. NECK: Supple, no JVD. LUNGS: Have decreased breath sounds, but clear to auscultation. HEART: Regular rate. Normal S1, S2. ABDOMEN: Obese, nontender, positive bowel sounds. No guarding, no rebound. EXTREMITIES: Have no edema. NEUROLOGIC: GCS is 15. Cranial nerves II-XII grossly intact. Alert and oriented x 3. SKIN: Warm and dry. She is going to be on her medications, her IV antibiotics. She will have consults. She has a 138 sodium, potassium 4.2, BUN 20, creatinine 1.5, GFR 33, sugar is 173, calcium is 8.4, to yovanny bili is 0.4, AST is 34, ALT is 42, alkaline phosphatase 116. White count is 10.5, hemoglobin 9.3 , hematocrit 28.5, platelets of 485. She has consults with cardio, infectious disease, renal and pulmonary. She will get physical therapy , IV antibiotics. Hopefully she will continue to improve. The patient has severe sepsis, pyelonephr itis. Jonah Ward DO cc: [id number] TT: 01/02/2017 09:28:11 en
[2017-01-02] MEDS: Nystatin 100,000 Units/gm Cream(15 gm) TOP SCH ×3 (10:38→18:00)
[2017-01-02] MEDS: Multivitamin Therapeutic Tab PO SCH (10:38)
--- NOTE | 2017-01-02 13:50 | PN ---
DATE: 01/02/2017 The patient continues to complain of a dry cough. No chest pain noted. PHYSICAL EXAMINATION: VITAL SIGNS: The blood pressure varies from 120 systolic to 176 systolic. Heart rate is in the 90s. NECK: Negative JVD. LUNGS: Without rales. HEART: Reveals S1, S2. EXTREMITIES: Without edema. LABORATORY DATA: BUN and creatinine is 20/1.5, glucose is 173. Hemoglobin is 9.3. IMPRESSION: 1. Persistent cough. 2. Hypertension. 3. Stable angina. 4. Coronary artery disease. 5. Renal insufficiency. 6. Diabetes mellitus. PLAN: Given these findings, we will discontinue her Cozaar. This may be the cause of her persistent cough. We will add Norvasc for replacement for blood pressure control. Jatinder Muñoz MD cc: [id number] TT: 01/02/2017 13:49:42 Confirmation # [id number] Dictation # [id number] sn
--- NOTE | 2017-01-02 21:09 | CP.PCM.CON ---
History of Present Illness - History of Present Illness History of Present Illness: 81 year old female with PMH of HTN, CAD S/P PCI, DM, GERD was initially admitted in [facility] because of sepsis from E. coli pyelonephritis with bacteremia. She has done well and is now transferred to [facility] for continued medical therapy and physical rehabilitation. Infectious diseases consult is requested to continue her antibiotic management. Currently the patient is comfortable in bed, not in distress. She denies headache or dizziness, no cough or colds, no dysuria, no abdominal pain, no SOB, no diarrhea , no fever or chills, no sore throat, no blurring of vision. Review of Systems - Review of Systems All systems: reviewed and no additional remarkable complaints except (as per HPI ) Past Patient History - Past Medical History & Family History Past Medical History?: Yes Past Family History: Reviewed and not pertinent - Past Social History Smoking Status: Never Smoked Alcohol: None Drugs: Denies Home Situation {Lives}: With Family - CARDIAC Hx Cardiac Disorders: (CAD, VT, Angioplasty) - PULMONARY Hx Respiratory Disorders: No - NEUROLOGICAL Hx Neurological Disorder: Yes (PHERIPHERAL NEUROPATHY) - HEENT Hx HEENT Problems: Yes Hx Blind: Yes (RIGHT EYE-INJURY) - RENAL Hx Chronic Kidney Disease: No - ENDOCRINE/METABOLIC Hx Diabetes Mellitus Type 2: Yes - HEMATOLOGICAL/ONCOLOGICAL Hx Blood Disorders: No - INTEGUMENTARY Hx Dermatological Problems: No - MUSCULOSKELETAL/RHEUMATOLOGICAL Hx Musculoskeletal Disorders: Yes Hx Falls: Yes - GASTROINTESTINAL Hx Gastrointestinal Disorders: Yes (POST LAP CONRAD 2-3-17,ACUTE CHOLEYCYSTITIS, GERD) - GENITOURINARY/GYNECOLOGICAL Hx Genitourinary Disorders: No - PSYCHIATRIC Hx Emotional Abuse: No Hx Physical Abuse: No - SURGICAL HISTORY Hx Cardiac Catheterization: Yes Hx Coronary Stent: Yes (X1) Hx Orthopedic Surgery: Yes Other/Comment: R eye surgery - ANESTHESIA Hx Anesthesia Reactions: No Hx Malignant Hyperthermia: No Meds Allergies/Adverse Reactions: Allergies Allergy/AdvReac Type Severity Reaction Status Date / Time Iodinated Contrast Media - Allergy NAUSEA Verified 01/02/17 01:57 Oral and - Medications Medications: Current Medications Acetaminophen (Tylenol 325mg Tab) 650 mg PO Q6H PRN PRN Reason: Fever >100.4 F Last Admin: 01/01/17 22:51 Dose: 650 mg Aspirin (Aspirin Chewable) 81 mg PO 0800 [facility] Atorvastatin Calcium (Lipitor) 40 mg PO DIN [facility] Clopidogrel Bisulfate (Plavix) 75 mg PO DAILY [facility] Enoxaparin Sodium (Lovenox) 30 mg SC 0600 [facility] PRN Reason: Protocol Last Admin: 01/02/17 05:33 Dose: 30 mg Guaifenesin (Robitussin) 100 mg PO Q4H PRN PRN Reason: Cough Last Admin: 01/02/17 05:40 Dose: 100 mg Ceftriaxone Sodium (Rocephin 1 Gram Ivpb) 100 mls @ 100 mls/hr IVPB 0600 [facility] PRN Reason: Protocol Stop: 01/07/17 06:01 Last Admin: 01/02/17 05:33 Dose: 100 mls/hr Insulin Detemir (Levemir) 20 unit SC HS [facility] Last Admin: 01/01/17 23:40 Dose: 20 unit Insulin Human Regular (Humulin R High) 0 units SC ACHS [facility] PRN Reason: Protocol Last Admin: 01/01/17 23:26 Dose: 3 units Levalbuterol HCl (Xopenex) 0.63 mg IH [id number] [facility] Last Admin: 01/02/17 02:11 Dose: Not Given Levalbuterol HCl (Xopenex) 0.63 mg IH Q2 PRN PRN Reason: Shortness of Breath Last Admin: 01/01/17 23:15 Dose: 0.63 mg Losartan Potassium (Cozaar) 50 mg PO DAILY [facility] Metoprolol Tartrate (Lopressor) 25 mg PO 0800,1800 [facility] Multivitamins (Thera Tab) 1 tab PO DAILY [facility] Nystatin (Mycostatin Cream) 0 ea TOP TID [facility] Pantoprazole Sodium (Protonix Ec Tab) 40 mg PO 0630,1730 [facility] Last Admin: 01/02/17 05:33 Dose: 40 mg Physical Exam - Constitutional Appears: Non-toxic, No Acute Distress - Head Exam Head Exam: NORMAL INSPECTION - ENT Exam ENT Exam: Mucous Membranes Moist - Neck Exam Neck exam: Negative for: Lymphadenopathy, Meningismus - Respiratory Exam Respiratory Exam: Decreased Breath Sounds - Cardiovascular Exam Cardiovascular Exam: +S1, +S2 - GI/Abdominal Exam GI & Abdominal Exam: Soft. absent: Tenderness Results - Vital Signs Recent Vital Signs: Last Vital Signs Temp 98.4 F 01/02/17 00:29 Pulse 99 H 01/02/17 00:29 Resp 18 01/02/17 00:29 BP 155/67 H 01/02/17 00:29 Pulse Ox - Labs Result Diagrams: 01/02/17 06:15 01/02/17 06:15 Assessment & Plan - Assessment and Plan (Free Text) Plan: Assessment Severe sepsis secondary to E. coli bacteremia, probably from pyelonephritis, clinically improving Leukocytosis, probably reactive from surgery, also from coronary artery disease history of acute acalculous cholecystitis S/P laparoscopic cholecystectomy (OR ) HTN CAD S/P PCI DM GERD Plan continue Rocephin (day 5 of antibiotics); repeat blood cx are negative; should complete a 14 day course Will continue to monitor clinically
[2017-01-02] MEDS: Insulin Detemir 100 units/ml Vial (Levemir) SC SCH (22:29)
--- NOTE | 2017-01-02 22:40 | CP.PCM.PN ---
Subjective - Date & Time of Evaluation Date of Evaluation: 01/02/17 Time of Evaluation: 15:00 - Subjective Subjective: Patient denies any shortness of breath; with leg swelling since being admitted; Objective - Vital Signs/Intake and Output Vital Signs (last 24 hours): Temp Pulse Resp BP Pulse Ox 98.6 F 97 H 18 147/72 95 01/02/17 16:00 01/02/17 18:00 01/02/17 16:00 01/02/17 18:00 01/02/17 16:00 - Medications Medications: Current Medications Acetaminophen (Tylenol 325mg Tab) 650 mg PO Q6H PRN PRN Reason: Fever >100.4 F Last Admin: 01/02/17 22:36 Dose: 650 mg Amlodipine Besylate (Norvasc) 10 mg PO DAILY [facility] Last Admin: 01/02/17 14:33 Dose: 10 mg Aspirin (Aspirin Chewable) 81 mg PO 0800 [facility] Last Admin: 01/02/17 09:38 Dose: 81 mg Atorvastatin Calcium (Lipitor) 40 mg PO DIN [facility] Last Admin: 01/02/17 18:00 Dose: 40 mg Clopidogrel Bisulfate (Plavix) 75 mg PO DAILY [facility] Last Admin: 01/02/17 10:38 Dose: 75 mg Enoxaparin Sodium (Lovenox) 30 mg SC 0600 [facility] PRN Reason: Protocol Last Admin: 01/02/17 05:33 Dose: 30 mg Guaifenesin (Robitussin) 100 mg PO Q4H PRN PRN Reason: Cough Last Admin: 01/02/17 19:45 Dose: 100 mg Ceftriaxone Sodium (Rocephin 1 Gram Ivpb) 100 mls @ 100 mls/hr IVPB 0600 [facility] PRN Reason: Protocol Stop: 01/07/17 06:01 Last Admin: 01/02/17 05:33 Dose: 100 mls/hr Insulin Detemir (Levemir) 20 unit SC HS [facility] Last Admin: 01/02/17 22:29 Dose: 20 unit Insulin Human Regular (Humulin R High) 0 units SC ACHS [facility] PRN Reason: Protocol Last Admin: 01/02/17 22:30 Dose: Not Given Levalbuterol HCl (Xopenex) 0.63 mg IH [id number] [facility] Last Admin: 01/02/17 20:36 Dose: 0.63 mg Levalbuterol HCl (Xopenex) 0.63 mg IH Q2 PRN PRN Reason: Shortness of Breath Last Admin: 01/01/17 23:15 Dose: 0.63 mg Metoprolol Tartrate (Lopressor) 25 mg PO 0800,1800 [facility] Last Admin: 01/02/17 18:00 Dose: 25 mg Multivitamins (Thera Tab) 1 tab PO DAILY [facility] Last Admin: 01/02/17 10:38 Dose: 1 tab Nystatin (Mycostatin Cream) 0 ea TOP TID [facility] Last Admin: 01/02/17 18:00 Dose: 1 appl Pantoprazole Sodium (Protonix Ec Tab) 40 mg PO 0630,1730 [facility] Last Admin: 01/02/17 18:00 Dose: 40 mg - Labs Labs: 01/02/17 06:15 01/02/17 06:15 - Constitutional Appears: Well, No Acute Distress - Head Exam Head Exam: NORMAL INSPECTION - Eye Exam Eye Exam: absent: Scleral icterus - ENT Exam ENT Exam: Mucous Membranes Moist - Neck Exam Neck Exam: Thyromegaly - Respiratory Exam Respiratory Exam: Clear to Ausculation Bilateral, NORMAL BREATHING PATTERN - Cardiovascular Exam Cardiovascular Exam: REGULAR RHYTHM, +S2 - GI/Abdominal Exam GI & Abdominal Exam: Soft. absent: Distended, Tenderness - Extremities Exam Additional comments: moderate bilateral lower led edema - Neurological Exam Neurological Exam: Alert, Awake - Psychiatric Exam Psychiatric exam: Normal Affect - Skin Skin Exam: Warm. absent: Cyanosis Assessment and Plan (1) Acute renal failure Assessment & Plan: MELECIO on CKD; ATN in the setting of recent contrast CT, resolving; stable electrolyte status; mild volume excess by exam; -lasix 20 mg IVP prn Status: Acute (2) CAD (coronary artery disease) Assessment & Plan: s/p KEMAL placement 2 months ago; continue dual anti-platelet agents per cardiology recs Status: Acute (3) Diabetes Assessment & Plan: With proteinuric kidney disease, likely diabetic nephropathy; restart losartan once renal function stable; Status: Acute (4) HTN (hypertension) Assessment & Plan: Uncontrolled, was on ARB previously; on norvasc; metoprolol started 2 days ago due to tachycardia; can likely restart losartan tomorrow; Status: Acute (5) Sepsis Assessment & Plan: On ceftriaxone for UTI sepsis, no renal dose adjustment needed; Status: Acute
[2017-01-03] MEDS: Levalbuterol 0.63 MG/3 ML Inhal Soln UD IH SCH ×4 (02:21→20:11)
[2017-01-03] MEDS: Enoxaparin 30 mg Syringe SC SCH (05:21)
[2017-01-03] MEDS: cefTRIAXone 1 gm 100 ML IVPB SCH (05:21)
[2017-01-03] MEDS: Pantoprazole 40 mg EC Tab PO SCH ×2 (06:39→18:02)
[2017-01-03] MEDS: Insulin Reg-HIGH-Coverage SC SCH ×4 (06:40→22:37)
--- NOTE | 2017-01-03 09:33 | PN ---
DATE: 01/03/2017 I saw her resting comfortably in the TCU in bed. She is here for severe sepsis, pyelonephritis, aubrey l insufficiency, hypertension, coronary artery disease, diabetes, atrial fibrillation, urinary tract infection. She is on aspirin, insulin, Levemir, Lipitor, Lopressor, Lovenox, Mycostatin cream, Norvasc, Plavix, Protonix, Robitussin, Rocephin, Thera-Tabs, Tylenol and Xopenex. She is comfortable. She is trying to eat well. She is trying to do well in physical therapy and je ing medications. No acute distress. PHYSICAL EXAMINATION: VITAL SIGNS: Temp 98.6, 97 pulse, 147/72 blood pressure, 18 respiratory rate, 95% O2 sat on room air . HEENT: Head is atraumatic, normocephalic. Throat is moist. Right eye blind. NECK: Supple. HEART: Regular rate. LUNGS: Decreased breath sounds but clear. ABDOMEN: Soft, morbidly obese, nontender, positive bowel sounds. EXTREMITIES: Weak, but no edema. She has a 10.5 white count, 9.3 hemoglobin, 485 platelets. She has a 250 blood sugar, 138 sodium, po tassium 4.2, BUN 20, creatinine 1.5, AST is 34, ALT is 42, alkaline phosphatase is 116. Her blood sugars are a little bit high. I am going to increase her Levemir to 25, check her labs elizabeht orrow. Encouraged her to do physical therapy, get out of bed to chair. As per the specialists that are on the case. Hopefully, she will do very well while she gets the antibiotics. She is being seen by infectious disease and cardiology and renal. We will check her labs tomorrow, get her out of bed to chair, physical therapy. Jonah Ward DO cc: [id number] TT: 01/03/2017 09:32:30 Confirmation # [id number] Dictation # [id number] en
[2017-01-03 09:44] LABS: HEMATOCRIT 31.8 % (36.0-48.0); MEAN CELL VOLUME 88.3 fL (80.0-105.0); MEAN CORPUSCULAR HEMOGLOBIN 28.1 pg (25.0-35.0); MEAN CORPUSCULAR HGB CONC 31.8 g/dl (31.0-37.0); MEAN PLATELET VOLUME 9.2 fl (7.0-11.0); RED CELL DISTRIBUTION WIDTH 14.4 % (11.5-14.5)
[2017-01-03 09:58] LABS: ALB/GLOB RATIO 0.8 (1.1-1.8); BILIRUBIN,TOTAL 0.3 mg/dL (0.2-1.3); CALCIUM 8.7 mg/dL (8.4-10.5); POTASSIUM 5.2 mmol/L (3.6-5.0); TOTAL PROTEIN 7.2 g/dL (5.8-8.3)
[2017-01-03] MEDS: Nystatin 100,000 Units/gm Cream(15 gm) TOP SCH ×3 (10:24→18:01)
[2017-01-03] MEDS: Multivitamin Therapeutic Tab PO SCH (10:25)
--- NOTE | 2017-01-03 10:26 | PN ---
DATE: 01/03/2017 The patient's cough is much improved since we stopped her ARB and Leroy. Blood pressure 123/66, the heart rate is in the 90s. NECK: Negative JVD. LUNGS: Without rales. HEART: Reveals S1, S2. EXTREMITIES: Without edema. LABORATORIES: Hemoglobin is 10.1, glucose is 345. IMPRESSION: 1. Resolution of cough with the cessation of Cozaar. 2. Hypertension. 3. Stable angina. 4. Coronary artery disease. 5. Renal insufficiency. 6. Diabetes mellitus. Given these findings, we will continue her Norvasc which has been controlling her blood pressure well . No evidence for recurrence of acute coronary syndrome. Jatinder Muñoz MD cc: [id number] TT: 01/03/2017 10:26:19 Confirmation # [id number] Dictation # [id number] jorge
--- NOTE | 2017-01-03 20:45 | PN ---
DATE: 01/03/2017 An 81-year-old female with past medical history of hypertension, diabetes, CAD status post stent with LAD drug-eluting stent placed 2 months ago and CKD stage IIIB, admitted with sepsis secondary to UTI and nephrology consulted for acute renal failure. The patient denies any shortness of breath today. Worked with PT, ambulating with a walker. PHYSICAL EXAMINATION: VITAL SIGNS: This morning, blood pressure 132/66, heart rate 91, respirations 20, O2 sat 94% on room air. GENERAL: No distress, able to converse coherently in full sentences. HEENT: Moist mucous membranes. No scleral icterus. CHEST: Clear to auscultation bilaterally. No rales, no rhonchi, no wheezes. HEART: S1, S2 positive, no murmurs, no gallops, no rubs. ABDOMEN: Soft, nontender, nondistended. EXTREMITIES: Moderate bilateral lower leg edema. ASSESSMENT: 1. Acute renal failure, acute kidney injury on chronic kidney disease IIIB, likely secondary to acut e tubular necrosis from contrast study done on day before admission. Renal function improving with s jason creatinine at 1.5 today, baseline of 1.3. May restart losartan at 25 mg. Can give IV Lasix 20 mg as needed for signs of volume excess. 2. Sepsis, Escherichia coli, bacteremia secondary to urinary tract infection, on ceftriaxone. No do se reduction needed for renal insufficiency 3. Diabetes on metformin and Januvia at home. Currently getting basal and sliding scale insulin. C ontinue to hold metformin until renal function improves further. 4. Hypertension. Losartan currently on hold. On metoprolol 25 mg b.i.d. Can restart losartan at 2 5 mg daily if blood pressure is elevated. 5. Coronary artery disease, status post stent. On aspirin, Plavix and atorvastatin. Continue per c ardiology recommendations. Reza Mayberry MD cc: [id number] TT: 01/03/2017 20:44:28 Confirmation # [id number] Dictation # [id number] gustavo
[2017-01-03] MEDS: Insulin Detemir 100 units/ml Vial (Levemir) SC SCH (22:37)
[2017-01-04] MEDS: Levalbuterol 0.63 MG/3 ML Inhal Soln UD IH SCH ×4 (03:15→19:42)
[2017-01-04] MEDS: Pantoprazole 40 mg EC Tab PO SCH ×2 (05:35→18:45)
[2017-01-04] MEDS: cefTRIAXone 1 gm 100 ML IVPB SCH (05:35)
[2017-01-04] MEDS: Enoxaparin 30 mg Syringe SC SCH (05:35)
[2017-01-04] MEDS: Insulin Reg-HIGH-Coverage SC SCH ×4 (06:51→22:21)
[2017-01-04 07:23] LABS: HEMATOCRIT 30.7 % (36.0-48.0); MEAN CELL VOLUME 88.7 fL (80.0-105.0); MEAN CORPUSCULAR HGB CONC 31.6 g/dl (31.0-37.0); MEAN PLATELET VOLUME 9.2 fl (7.0-11.0); RED CELL DISTRIBUTION WIDTH 14.6 % (11.5-14.5)
[2017-01-04 07:31] LABS: ALB/GLOB RATIO 0.8 (1.1-1.8); BILIRUBIN,TOTAL 0.4 mg/dL (0.2-1.3); CALCIUM 8.5 mg/dL (8.4-10.5); POTASSIUM 4.4 mmol/L (3.6-5.0); TOTAL PROTEIN 6.8 g/dL (5.8-8.3)
[2017-01-04] MEDS: Multivitamin Therapeutic Tab PO SCH (10:51)
[2017-01-04] MEDS: Nystatin 100,000 Units/gm Cream(15 gm) TOP SCH ×3 (10:51→18:47)
--- NOTE | 2017-01-04 14:32 | CP.PCM.PN ---
Subjective - Date & Time of Evaluation Date of Evaluation: 01/04/17 Time of Evaluation: 13:50 - Subjective Subjective: Comfortable in bed, not in distress. No fevers, no nausea, no diarrhea. Objective - Vital Signs/Intake and Output Vital Signs (last 24 hours): Temp Pulse Resp BP Pulse Ox 97.5 F L 84 18 139/70 92 L 01/03/17 16:00 01/04/17 10:49 01/03/17 16:00 01/04/17 10:49 01/03/17 16:00 - Medications Medications: Current Medications Acetaminophen (Tylenol 325mg Tab) 650 mg PO Q6H PRN PRN Reason: Fever >100.4 F Last Admin: 01/02/17 22:36 Dose: 650 mg Amlodipine Besylate (Norvasc) 10 mg PO DAILY [facility] Last Admin: 01/04/17 10:49 Dose: 10 mg Aspirin (Aspirin Chewable) 81 mg PO 0800 [facility] Last Admin: 01/04/17 08:51 Dose: 81 mg Atorvastatin Calcium (Lipitor) 40 mg PO DIN [facility] Last Admin: 01/03/17 18:00 Dose: 40 mg Clopidogrel Bisulfate (Plavix) 75 mg PO DAILY [facility] Last Admin: 01/04/17 10:51 Dose: 75 mg Enoxaparin Sodium (Lovenox) 30 mg SC 0600 [facility] PRN Reason: Protocol Last Admin: 01/04/17 05:35 Dose: 30 mg Guaifenesin (Robitussin) 100 mg PO Q4H PRN PRN Reason: Cough Last Admin: 01/02/17 19:45 Dose: 100 mg Ceftriaxone Sodium (Rocephin 1 Gram Ivpb) 100 mls @ 100 mls/hr IVPB 0600 [facility] PRN Reason: Protocol Stop: 01/07/17 06:01 Last Admin: 01/04/17 05:35 Dose: 100 mls/hr Insulin Detemir (Levemir) 25 unit SC HS [facility] Last Admin: 01/03/17 22:37 Dose: Not Given Insulin Human Regular (Humulin R High) 0 units SC ACHS [facility] PRN Reason: Protocol Last Admin: 01/04/17 12:04 Dose: 15 units Levalbuterol HCl (Xopenex) 0.63 mg IH [id number] [facility] Last Admin: 04/08/17 13:10 Dose: 0.63 mg Levalbuterol HCl (Xopenex) 0.63 mg IH Q2 PRN PRN Reason: Shortness of Breath Last Admin: 01/01/17 23:15 Dose: 0.63 mg Metoprolol Tartrate (Lopressor) 25 mg PO 0800,1800 [facility] Last Admin: 01/04/17 08:51 Dose: 25 mg Multivitamins (Thera Tab) 1 tab PO DAILY [facility] Last Admin: 01/04/17 10:51 Dose: 1 tab Nystatin (Mycostatin Cream) 0 ea TOP TID [facility] Last Admin: 01/04/17 10:51 Dose: 1 appl Pantoprazole Sodium (Protonix Ec Tab) 40 mg PO 0630,1730 [facility] Last Admin: 01/04/17 05:35 Dose: 40 mg - Labs Labs: 01/04/17 07:13 01/04/17 07:13 - Constitutional Appears: Non-toxic, No Acute Distress - Head Exam Head Exam: NORMAL INSPECTION - ENT Exam ENT Exam: Mucous Membranes Moist - Neck Exam Neck Exam: absent: Lymphadenopathy, Meningismus - Respiratory Exam Respiratory Exam: Decreased Breath Sounds - Cardiovascular Exam Cardiovascular Exam: +S1, +S2 - GI/Abdominal Exam GI & Abdominal Exam: Soft. absent: Tenderness Assessment and Plan - Assessment and Plan (Free Text) Plan: Assessment Severe sepsis secondary to E. coli bacteremia, probably from pyelonephritis, clinically improving Leukocytosis, probably reactive from surgery, also from coronary artery disease history of acute acalculous cholecystitis S/P laparoscopic cholecystectomy (OR ) HTN CAD S/P PCI DM GERD Plan continue Rocephin (day 7 of antibiotics); repeat blood cx are negative; should complete a 14 day course (can be switched to PO Ciprofloxacin when ready for discharge to complete the course of therapy) Will continue to monitor clinically
[2017-01-04] MEDS: Insulin Detemir 100 units/ml Vial (Levemir) SC SCH (22:22)
--- NOTE | 2017-01-04 23:15 | CP.PCM.PN ---
Subjective - Date & Time of Evaluation Date of Evaluation: 01/04/17 Time of Evaluation: 12:00 - Subjective Subjective: Denies any complaints; now gives history of daily ibuprofen use, 1 tab, for various aches/pains; Objective - Vital Signs/Intake and Output Vital Signs (last 24 hours): Temp Pulse Resp BP Pulse Ox 98.1 F 112 H 15 151/69 H 87 L 01/04/17 16:00 01/04/17 18:46 01/04/17 16:00 01/04/17 18:46 01/04/17 16:00 - Medications Medications: Current Medications Acetaminophen (Tylenol 325mg Tab) 650 mg PO Q6H PRN PRN Reason: Fever >100.4 F Last Admin: 01/02/17 22:36 Dose: 650 mg Amlodipine Besylate (Norvasc) 10 mg PO DAILY [facility] Last Admin: 01/04/17 10:49 Dose: 10 mg Aspirin (Aspirin Chewable) 81 mg PO 0800 [facility] Last Admin: 01/04/17 08:51 Dose: 81 mg Atorvastatin Calcium (Lipitor) 40 mg PO DIN [facility] Last Admin: 01/04/17 18:47 Dose: 40 mg Clopidogrel Bisulfate (Plavix) 75 mg PO DAILY [facility] Last Admin: 01/04/17 10:51 Dose: 75 mg Enoxaparin Sodium (Lovenox) 30 mg SC 0600 [facility] PRN Reason: Protocol Last Admin: 01/04/17 05:35 Dose: 30 mg Guaifenesin (Robitussin) 100 mg PO Q4H PRN PRN Reason: Cough Last Admin: 01/02/17 19:45 Dose: 100 mg Ceftriaxone Sodium (Rocephin 1 Gram Ivpb) 100 mls @ 100 mls/hr IVPB 0600 [facility] PRN Reason: Protocol Stop: 01/07/17 06:01 Last Admin: 01/04/17 05:35 Dose: 100 mls/hr Insulin Detemir (Levemir) 25 unit SC HS [facility] Last Admin: 01/04/17 22:22 Dose: 25 unit Insulin Human Regular (Humulin R High) 0 units SC ACHS [facility] PRN Reason: Protocol Last Admin: 01/04/17 22:21 Dose: Not Given Levalbuterol HCl (Xopenex) 0.63 mg IH [id number] [facility] Last Admin: 01/04/17 19:42 Dose: 0.63 mg Levalbuterol HCl (Xopenex) 0.63 mg IH Q2 PRN PRN Reason: Shortness of Breath Last Admin: 01/01/17 23:15 Dose: 0.63 mg Metoprolol Tartrate (Lopressor) 25 mg PO 0800,1800 [facility] Last Admin: 01/04/17 18:46 Dose: 25 mg Multivitamins (Thera Tab) 1 tab PO DAILY [facility] Last Admin: 01/04/17 10:51 Dose: 1 tab Nystatin (Mycostatin Cream) 0 ea TOP TID [facility] Last Admin: 01/04/17 18:47 Dose: 1 appl Pantoprazole Sodium (Protonix Ec Tab) 40 mg PO 0630,1730 [facility] Last Admin: 01/04/17 18:45 Dose: 40 mg - Labs Labs: 01/04/17 07:13 01/04/17 07:13 - Constitutional Appears: Well, No Acute Distress - Head Exam Head Exam: NORMAL INSPECTION - ENT Exam ENT Exam: Mucous Membranes Moist - Neck Exam Additional comments: L sided thyroid mass - Respiratory Exam Respiratory Exam: Clear to Ausculation Bilateral, NORMAL BREATHING PATTERN. absent: Rales, Rhonchi, Wheezes - Cardiovascular Exam Cardiovascular Exam: RRR, +S1, +S2. absent: JVD - GI/Abdominal Exam GI & Abdominal Exam: Soft. 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
[2017-01-05] MEDS: Levalbuterol 0.63 MG/3 ML Inhal Soln UD IH SCH ×4 (02:40→20:18)
[2017-01-05] MEDS: cefTRIAXone 1 gm 100 ML IVPB SCH (05:45)
[2017-01-05] MEDS: Enoxaparin 30 mg Syringe SC SCH (05:45)
[2017-01-05] MEDS: Pantoprazole 40 mg EC Tab PO SCH ×2 (05:45→17:48)
[2017-01-05] MEDS: Insulin Reg-HIGH-Coverage SC SCH ×4 (07:00→21:48)
[2017-01-05] MEDS: Nystatin 100,000 Units/gm Cream(15 gm) TOP SCH ×3 (10:16→17:48)
[2017-01-05] MEDS: Multivitamin Therapeutic Tab PO SCH (10:18)
--- NOTE | 2017-01-05 13:19 | CP.PCM.PN ---
Subjective - Date & Time of Evaluation Date of Evaluation: 01/05/17 Time of Evaluation: 11:55 - Subjective Subjective: Comfortable in bed, not in distress, no fevers, no diarrhea, no nausea. Objective - Vital Signs/Intake and Output Vital Signs (last 24 hours): Temp Pulse Resp BP Pulse Ox 97.1 F L 56 L 19 141/67 95 01/05/17 10:00 01/05/17 10:18 01/05/17 10:00 01/05/17 12:36 01/05/17 10:00 - Medications Medications: Current Medications Acetaminophen (Tylenol 325mg Tab) 650 mg PO Q6H PRN PRN Reason: Fever >100.4 F Last Admin: 01/02/17 22:36 Dose: 650 mg Amlodipine Besylate (Norvasc) 10 mg PO DAILY [facility] Last Admin: 01/05/17 10:17 Dose: 10 mg Aspirin (Aspirin Chewable) 81 mg PO 0800 [facility] Last Admin: 01/05/17 09:03 Dose: 81 mg Atorvastatin Calcium (Lipitor) 40 mg PO DIN [facility] Last Admin: 01/04/17 18:47 Dose: 40 mg Clopidogrel Bisulfate (Plavix) 75 mg PO DAILY [facility] Last Admin: 01/05/17 10:18 Dose: 75 mg Enoxaparin Sodium (Lovenox) 30 mg SC 0600 [facility] PRN Reason: Protocol Last Admin: 01/05/17 05:45 Dose: 30 mg Guaifenesin (Robitussin) 100 mg PO Q4H PRN PRN Reason: Cough Last Admin: 01/02/17 19:45 Dose: 100 mg Ceftriaxone Sodium (Rocephin 1 Gram Ivpb) 100 mls @ 100 mls/hr IVPB 0600 [facility] PRN Reason: Protocol Stop: 01/07/17 06:01 Last Admin: 01/05/17 05:45 Dose: 100 mls/hr Insulin Detemir (Levemir) 30 unit SC HS [facility] Insulin Human Regular (Humulin R High) 0 units SC ACHS [facility] PRN Reason: Protocol Last Admin: 01/05/17 11:16 Dose: 15 units Levalbuterol HCl (Xopenex) 0.63 mg IH [id number] [facility] Last Admin: 01/05/17 13:12 Dose: 0.63 mg Levalbuterol HCl (Xopenex) 0.63 mg IH Q2 PRN PRN Reason: Shortness of Breath Last Admin: 01/01/17 23:15 Dose: 0.63 mg Losartan Potassium (Cozaar) 25 mg PO DAILY [facility] Last Admin: 01/05/17 10:18 Dose: 25 mg Metoprolol Tartrate (Lopressor) 25 mg PO 0800,1800 [facility] Last Admin: 01/05/17 10:15 Dose: 25 mg Multivitamins (Thera Tab) 1 tab PO DAILY [facility] Last Admin: 01/05/17 10:18 Dose: 1 tab Nystatin (Mycostatin Cream) 0 ea TOP TID [facility] Last Admin: 01/05/17 10:16 Dose: 1 appl Pantoprazole Sodium (Protonix Ec Tab) 40 mg PO 0630,1730 [facility] Last Admin: 01/05/17 05:45 Dose: 40 mg Sitagliptin Phosphate (Januvia) 50 mg PO DAILY [facility] - Labs Labs: 01/04/17 07:13 01/04/17 07:13 - Constitutional Appears: Non-toxic, No Acute Distress - Head Exam Head Exam: NORMAL INSPECTION - ENT Exam ENT Exam: Mucous Membranes Moist - Neck Exam Neck Exam: absent: Lymphadenopathy, Meningismus - Respiratory Exam Respiratory Exam: Decreased Breath Sounds - Cardiovascular Exam Cardiovascular Exam: +S1, +S2 - GI/Abdominal Exam GI & Abdominal Exam: Soft. absent: Tenderness Assessment and Plan - Assessment and Plan (Free Text) Plan: Assessment Severe sepsis secondary to E. coli bacteremia, probably from pyelonephritis, clinically improving Leukocytosis, probably reactive from surgery, also from coronary artery disease history of acute acalculous cholecystitis S/P laparoscopic cholecystectomy (OR ) HTN CAD S/P PCI DM GERD Plan continue Rocephin (day 8 of antibiotics); repeat blood cx are negative; should complete a 14 day course (can be switched to PO Ciprofloxacin when ready for discharge to complete the course of therapy) Will continue to monitor clinically
--- NOTE | 2017-01-05 15:11 | PN ---
DATE: 01/05/2017 On the TCU. She is resting comfortably in bed. She is in good spirits. She has some gas every now and then. Her blood sugars have been fairly controlled. She is on sliding scale. I increased her L evemir and I put her back on her Januvia. I am going to continue to hold the metformin. She is in g ood spirits overall. She is trying in physical therapy. She is eating better. She is drinking well . She has multiple issues. She had severe sepsis, she had pyelonephritis, coronary artery disease, diabetes, hypertension, but she is comfortable. She is on IV antibiotics. We are still going to hol d the Glucophage. I will put her back on the Januvia, increase the Levemir. PHYSICAL EXAMINATION: VITAL SIGNS: Temp 97.1, 56 pulse, 141/67 blood pressure, 19 respiratory rate, 95% O2 sat on room air . HEENT: Head is atraumatic, normocephalic. The right eye is blind. Throat is moist. NECK: Supple. HEART: Regular rate. LUNGS: Decreased breath sounds, but clear to auscultation. ABDOMEN: Soft, obese, nontender, no guarding, no rebound. EXTREMITIES: Have no edema. She has a 136 sodium, potassium 4.4, BUN is 19, creatinine 1.5, GFR is 33. Sugars have all been very high at 500, 463, 420, 295, 229. I increased her medicine, her Levemir and I added Januvia. Calciu m is 8.5, total bili is 0.4, AST is 33, ALT is 44, alkaline phosphatase is 118. White count is 11, h emoglobin 9.7, hematocrit 30.7, platelets of 572. She is being seen by infectious disease and renal and cardiology. We will continue with physical the rapy, IV antibiotics for the sepsis, watch her blood sugars, encourage her to do physical therapy. A nswered questions, discussed at length with her. We will continue with treatment and care. Jonah Ward DO cc: [id number] TT: 01/05/2017 14:44:59 Confirmation # [id number] Dictation # [id number] en
[2017-01-05] MEDS: Insulin Detemir 100 units/ml Vial (Levemir) SC SCH (21:47)
--- NOTE | 2017-01-05 22:15 | CP.PCM.PN ---
Subjective - Date & Time of Evaluation Date of Evaluation: 01/05/17 Time of Evaluation: 11:00 - Subjective Subjective: No complaints, ambulating with walker, no sob; Objective - Vital Signs/Intake and Output Vital Signs (last 24 hours): Temp Pulse Resp BP Pulse Ox 97.6 F 105 H 15 128/64 93 L 01/05/17 16:00 01/05/17 17:47 01/05/17 16:00 01/05/17 17:47 01/05/17 16:00 - Medications Medications: Current Medications Acetaminophen (Tylenol 325mg Tab) 650 mg PO Q6H PRN PRN Reason: Fever >100.4 F Last Admin: 01/02/17 22:36 Dose: 650 mg Amlodipine Besylate (Norvasc) 10 mg PO DAILY [facility] Last Admin: 01/05/17 10:17 Dose: 10 mg Aspirin (Aspirin Chewable) 81 mg PO 0800 [facility] Last Admin: 01/05/17 09:03 Dose: 81 mg Atorvastatin Calcium (Lipitor) 40 mg PO DIN [facility] Last Admin: 01/05/17 17:47 Dose: 40 mg Clopidogrel Bisulfate (Plavix) 75 mg PO DAILY [facility] Last Admin: 01/05/17 10:18 Dose: 75 mg Enoxaparin Sodium (Lovenox) 30 mg SC 0600 [facility] PRN Reason: Protocol Last Admin: 01/05/17 05:45 Dose: 30 mg Guaifenesin (Robitussin) 100 mg PO Q4H PRN PRN Reason: Cough Last Admin: 01/02/17 19:45 Dose: 100 mg Ceftriaxone Sodium (Rocephin 1 Gram Ivpb) 100 mls @ 100 mls/hr IVPB 0600 [facility] PRN Reason: Protocol Stop: 01/07/17 06:01 Last Admin: 01/05/17 05:45 Dose: 100 mls/hr Insulin Detemir (Levemir) 30 unit SC HS [facility] Last Admin: 01/05/17 21:47 Dose: 30 unit Insulin Human Regular (Humulin R High) 0 units SC ACHS [facility] PRN Reason: Protocol Last Admin: 01/05/17 21:48 Dose: 2 units Levalbuterol HCl (Xopenex) 0.63 mg IH [id number] [facility] Last Admin: 01/05/17 20:18 Dose: 0.63 mg Levalbuterol HCl (Xopenex) 0.63 mg IH Q2 PRN PRN Reason: Shortness of Breath Last Admin: 01/01/17 23:15 Dose: 0.63 mg Losartan Potassium (Cozaar) 25 mg PO DAILY [facility] Last Admin: 01/05/17 10:18 Dose: 25 mg Metoprolol Tartrate (Lopressor) 25 mg PO 0800,1800 [facility] Last Admin: 01/05/17 17:47 Dose: 25 mg Multivitamins (Thera Tab) 1 tab PO DAILY [facility] Last Admin: 01/05/17 10:18 Dose: 1 tab Nystatin (Mycostatin Cream) 0 ea TOP TID [facility] Last Admin: 01/05/17 17:48 Dose: 1 appl Pantoprazole Sodium (Protonix Ec Tab) 40 mg PO 0630,1730 [facility] Last Admin: 01/05/17 17:48 Dose: 40 mg Sitagliptin Phosphate (Januvia) 50 mg PO DAILY [facility] Last Admin: 01/05/17 14:04 Dose: 50 mg - Labs Labs: 01/04/17 07:13 01/04/17 07:13 - Constitutional Appears: Well, No Acute Distress - Head Exam Head Exam: NORMAL INSPECTION - ENT Exam ENT Exam: Mucous Membranes Moist - Neck Exam Additional comments: L sided thryoid mass - Respiratory Exam Respiratory Exam: Clear to Ausculation Bilateral, NORMAL BREATHING PATTERN - Cardiovascular Exam Cardiovascular Exam: REGULAR RHYTHM, +S1, +S2 - GI/Abdominal Exam GI & Abdominal Exam: Soft. absent: Distended, Tenderness - Extremities Exam Additional comments: moderate lower leg edema bilaterally - Neurological Exam Neurological Exam: Alert, Awake - Psychiatric Exam Psychiatric exam: Normal Affect, Normal Mood - Skin Skin Exam: Normal Color, Warm Assessment and Plan (1) Acute renal failure Assessment & Plan: MELECIO on CKD, resolving; monitor; needs to avoid all NSAIDS; continue losartan, will titrate upward as tolerated; Status: Acute (2) CAD (coronary artery disease) Assessment & Plan: s/p LAD KEMAL 2 months ago; continue anti-platelet agents and statin per cardio; Status: Acute (3) Diabetes Assessment & Plan: Sugars uncontrolled while here; check A1C; Status: Acute (4) HTN (hypertension) Assessment & Plan: Controlled; monitor; giving lasix PO 20 mg one time dose for leg edema; Status: Acute (5) Sepsis Assessment & Plan: UTI sepsis, on ceftriaxone, no renal dose adjustment needed; Status: Acute
[2017-01-06] MEDS: Levalbuterol 0.63 MG/3 ML Inhal Soln UD IH SCH ×4 (01:39→20:32)
[2017-01-06] MEDS: cefTRIAXone 1 gm 100 ML IVPB SCH (05:27)
[2017-01-06] MEDS: Enoxaparin 30 mg Syringe SC SCH (05:28)
[2017-01-06] MEDS: Pantoprazole 40 mg EC Tab PO SCH ×2 (06:30→17:46)
[2017-01-06 07:11] LABS: ALB/GLOB RATIO 0.7 (1.1-1.8); BILIRUBIN,TOTAL 0.3 mg/dL (0.2-1.3); CALCIUM 8.4 mg/dL (8.4-10.5); POTASSIUM 4.3 mmol/L (3.6-5.0)
[2017-01-06 07:19] LABS: HEMATOCRIT 29.5 % (36.0-48.0); MEAN CELL VOLUME 89.4 fL (80.0-105.0); MEAN CORPUSCULAR HEMOGLOBIN 27.9 pg (25.0-35.0); MEAN CORPUSCULAR HGB CONC 31.2 g/dl (31.0-37.0); MEAN PLATELET VOLUME 9.2 fl (7.0-11.0); RED CELL DISTRIBUTION WIDTH 14.6 % (11.5-14.5); WHITE BLOOD COUNT 8.6 10^3/ul (4.5-11.0)
[2017-01-06] MEDS: Insulin Reg-HIGH-Coverage SC SCH ×4 (08:30→22:48)
--- NOTE | 2017-01-06 09:40 | PN ---
DATE: 01/06/2017 I saw her in the transitional care unit, resting in bed. She is still having this cough. She has be en on numerous cough medications. I now stopped the one she is on. I put her on Tessalon Perles. S he is also on aspirin, Cozaar, insulin, Januvia, Levemir, Lipitor, Lopressor, Lovenox, Mycostatin, No rvasc, Plavix, Protonix, Rocephin IV, Tessalon Perles now, Thera-Tabs, Tylenol and Xopenex. I also discussed it with the floor attendant, who felt it was not really pulmonary. PHYSICAL EXAMINATION: VITAL SIGNS: She has a 97.6 temp, 91 pulse, 125/61 blood pressure, 15 respiratory rate, 93% O2 sat o n room air. HEENT: Head is atraumatic, normocephalic. The right eye is blind. Throat moist. NECK: Supple. HEART: Regular rate. LUNGS: Decreased breath sounds, but clear. ABDOMEN: Soft, obese, nontender, no guarding, no rebound. EXTREMITIES: No edema. She has an 8.6 white count, 9.2 hemoglobin, 29.5 hematocrit with 627 platelets. She has a 136 sodium , potassium 4.3, BUN 25, creatinine 1.9, GFR is 25, sugar is 133, calcium is 8.4, total bilirubin is 0.3, AST 36, ALT 35, alkaline phosphatase 101, total protein is 7.0. She is being seen by renal, infectious disease. She has a urinary tract infection, sepsis, hypertens ion, diabetes, acute kidney injury on chronic kidney injury, severe sepsis. Clinically improving on IV antibiotics. Continue with aggressive treatment and care. I will check her labs tomorrow. Jonah Ward DO cc: [id number] TT: 01/06/2017 09:39:27 Confirmation # [id number] Dictation # [id number] en
[2017-01-06] MEDS: Multivitamin Therapeutic Tab PO SCH (10:04)
[2017-01-06] MEDS: Nystatin 100,000 Units/gm Cream(15 gm) TOP SCH ×3 (10:05→17:47)
--- NOTE | 2017-01-06 21:37 | PN ---
DATE: 01/06/2017 HISTORY OF PRESENT ILLNESS: An 81-year-old female with history of hypertension, diabetes, CKD 3 and C AD, admitted with UTI, sepsis, acute renal failure. The patient was discharged to TCU yesterday. The patient currently feels well. Ambulating with a walker. Denies any shortness of breath. Toleratin g diet well. PHYSICAL EXAMINATION: VITAL SIGNS: This morning, blood pressure 125/61, heart rate 91, respirations 20, temperature 98.2, O2 sat 95% on room air. GENERAL: No distress, speaking coherently in full sentences. HEENT: Moist mucous membranes. No scleral icterus. CHEST: Clear to auscultation bilaterally. No rales, no rhonchi, no wheezes. HEART: S1, S2 positive. No murmurs, no rubs, no gallops. ABDOMEN: Soft, nontender, nondistended. EXTREMITIES: Bilateral moderate lower leg edema. ASSESSMENT: 1. Acute renal failure secondary to acute tubular necrosis from contrast nephropathy. Renal functio n had improved with creatinine coming down from 1.9 to 1.5, again with increase in serum creatinine b ack to 1.9 in the setting of having restarted losartan yesterday and given a dose of Lasix 20 mg p.o. Up to 30% increase in serum creatinine can be expected with ALEXANDRA inhibitors and ARB administration. I t should also be noted that acute tubular necrosis can take several weeks to resolve and had not full y resolved before losartan was initiated by us. Will hold losartan and reassess with labs tomorrow. We will repeat UA to look for other possible causes. 2. Coronary artery disease, status post left anterior descending drug-eluting stent 2 months ago. C ontinue antiplatelet agents and statin per cardiology recommendations. 3. Diabetes, previously only on p.o. meds at home. Sugars requiring progressively increasing doses of diuretics. We will check hemoglobin A1c. Elevated sugars may also be causing some degree of volu me depletion, although sugars appear to be better controlled per readings this morning. 4. Hypertension, controlled. Currently on metoprolol 25 mg b.i.d. and amlodipine 10 mg daily, will continue. Will hold losartan until renal function stabilizes. 5. Sepsis secondary to urinary tract infection, on ceftriaxone. No renal dose adjustment necessary. 6. Anemia. We will check iron studies. Reza Mayberry MD cc: [id number] TT: 01/06/2017 21:37:11 Confirmation # [id number] Dictation # [id number] ln
[2017-01-06] MEDS: Insulin Detemir 100 units/ml Vial (Levemir) SC SCH (22:48)
--- NOTE | 2017-01-06 22:59 | PN ---
DATE: 01/06/2017 The patient is in bed in no acute distress, nontoxic, was seen earlier this morning in 313. PHYSICAL EXAMINATION: VITAL SIGNS: Temperature is 98, blood pressure is 120/50, respiratory rate of 20, heart rate of 91. HEENT: Unremarkable. NECK: Supple. LUNGS: Have decreased breath sounds. HEART: Normal S1, S2. ABDOMEN: Soft, nontender. LABORATORY DATA: Reveals a white count of 8.6, hemoglobin of 9, platelets of ____. BUN of 25, creat inine 1.9. Microbiology is noted. Review of the orders reveals the patient to be on ceftriaxone. ASSESSMENT AND PLAN: An 81-year-old female with severe sepsis secondary to Escherichia coli bacterem ia with pyelonephritis and with leukocytosis. Today is day #9 of ceftriaxone. We will complete 14 d ays. May be able to switch to p.o. At this point, I will renew continue the ceftriaxone for now pen ding for possible discharge. May be able to switch to p.o. antibiotics in this patient with Escheric hia coli in the blood and E. coli in the urine from acute care which was pansensitive. Review of the EKG reveals a QTC interval of 410 which allows us to ____ Cipro to complete therapy upo n discharge. Johnie Tapia MD cc: [id number] TT: 01/06/2017 22:58:15 Confirmation # [id number] Dictation # [id number] jorge
[2017-01-07 01:09] LABS: URINE APPEARANCE CLEAR (CLEAR); URINE BILIRUBIN NEGATIVE (NEGATIVE); URINE BLOOD TRACE-INTACT (NEGATIVE); URINE COLOR STRAW (YELLOW); URINE GLUCOSE (UA) 250 mg/dL (NEGATIVE); URINE KETONE NEGATIVE (NEGATIVE); URINE LEUKOCYTE ESTERASE NEGATIVE Leu/uL (NEGATIVE); URINE PROTEIN 30 mg/dL (<30 mg/dL); URINE UROBILINOGEN 0.2 E.U./dL (<1 E.U./dL)
[2017-01-07 01:22] LABS: URINE BACTERIA SMALL (NEG); URINE RBC 0 - 2 /hpf (0-2)
[2017-01-07] MEDS: Levalbuterol 0.63 MG/3 ML Inhal Soln UD IH SCH ×4 (01:26→20:13)
[2017-01-07] MEDS: Pantoprazole 40 mg EC Tab PO SCH ×2 (05:32→17:31)
[2017-01-07] MEDS: Enoxaparin 30 mg Syringe SC SCH (05:32)
[2017-01-07] MEDS: cefTRIAXone 1 gm 100 ML IVPB SCH (05:32)
[2017-01-07] MEDS: Insulin Reg-HIGH-Coverage SC SCH ×4 (06:49→21:32)
[2017-01-07] MEDS: Budesonide 0.5 mg/2 ml Inhal Susp UD IH SCH ×2 (07:32→20:13)
--- NOTE | 2017-01-07 07:45 | PN ---
DATE: 01/07/2017 This is a pulmonary reevaluation. SUBJECTIVE: The patient appears very comfortable at rest. She is not short of breath. PHYSICAL EXAMINATION: VITAL SIGNS: Temperature 98.1, pulse 88, respirations 18/20, blood pressure 125 /62. Oxygen saturation on room air is 97%. HEENT: Normocephalic, atraumatic. No JVD. CARDIOVASCULAR: Positive S1, S2. No S3. LUNGS: Clear bilaterally. EXTREMITIES: Mild edema. No cyanosis, no clubbing. Calves are nontender to palpation. GASTROINTESTINAL: Abdomen is soft. It is not distended and nontender to palpation. Bowel sounds are positive. SKIN: No acute rash. NEUROLOGIC: Limited at the present time. IMPRESSION: 1. Acute pyelonephritis. 2. Sepsis syndrome. 3. Anemia. 4. Renal insufficiency. 5. Minimal bronchospasm. 6. Coronary artery disease. PLAN: This is a pulmonary reevaluation. I did discuss the case with the night nurse at length. The night nurse notes a very minimal occasional cough -- for this patient. I also discussed the case with the patient at length. The patient also notes a very minimal cough -- decreased from last week. On physical exam, the patient's lungs remain clear. In addition, the oxygen saturation on room air is 97%. I will continue with the current nebulizer treatments and try adding inhaled steroids at this point in time. The patient' s clinical status and physical exam do not warrant systemic steroids. I would continue with the renal and infectious disease evaluations. Inputs are noted. Clinical status of the patient is certainly improved -- compared to the initial presentation. The patient is advised to increase her activity as tolerated. I will discuss the above with Dr. Ward. Justino Lima MD cc: [phone] TT: 01/07/2017 07:43:59 Confirmation # [id number] Dictation # [id number] en [id number]
[2017-01-07 08:00] LABS: HEMATOCRIT 32.4 % (36.0-48.0); MEAN CELL VOLUME 89.3 fL (80.0-105.0); MEAN CORPUSCULAR HEMOGLOBIN 28.1 pg (25.0-35.0); MEAN CORPUSCULAR HGB CONC 31.5 g/dl (31.0-37.0); MEAN PLATELET VOLUME 9.2 fl (7.0-11.0); RED CELL DISTRIBUTION WIDTH 14.5 % (11.5-14.5); WHITE BLOOD COUNT 9.4 10^3/ul (4.5-11.0)
[2017-01-07 08:09] LABS: ALB/GLOB RATIO 0.8 (1.1-1.8); BILIRUBIN,TOTAL 0.3 mg/dL (0.2-1.3); CALCIUM 9.1 mg/dL (8.4-10.5); POTASSIUM 4.7 mmol/L (3.6-5.0); TOTAL PROTEIN 8.1 g/dL (5.8-8.3)
[2017-01-07 08:18] LABS: IRON 56 ug/dL (45-180)
--- NOTE | 2017-01-07 09:33 | PN ---
DATE: 01/07/2017 I saw her resting comfortably in bed. She is eating a little bit better. She is doing well with phy sical therapy. She is in good spirits. She was here for diabetes, severe sepsis, pyelonephritis, coronary artery disease, hypertension, and a cough. MEDICATIONS: She is currently on aspirin, Cozaar, insulin, Januvia, Levemir, Lipitor, Lopressor, Kristina enox, Mycostatin, Norvasc, Plavix, Protonix, Pulmicort, Tessalon Perles, Thera-Tabs, Tylenol, and Xop enex. PHYSICAL EXAMINATION: VITAL SIGNS: Temp 98.1, 88 pulse, 125/62 blood pressure, 20 respiratory rate, 97% O2 sat on room air . HEENT: Head is atraumatic, normocephalic. Right eye blind. Throat moist. NECK: Supple. HEART: Regular rate. LUNGS: Decreased breath sounds, but clear to auscultation. ABDOMEN: Soft, nontender, positive bowel sounds, obese. EXTREMITIES: No edema. LABORATORY DATA: Her blood test shows a 9.4 white count, 10.2 hemoglobin, 32.4 hematocrit with 718 p latelets - it was quite high. I will call on hematology/oncology for that to see what they think. Sodium 141, potassium 4.7, BUN 24, creatinine 1.7, which is getting better. Calcium is 9.1. Ferriti n is pending. Total bili is 0.3. AST is 47. ALT is 31. Alk phos is 119. She is being seen by pulmonary, infectious disease, renal. Overall she is improving. She had acute pyelonephritis, sepsis syndrome, anemia, renal insufficiency , coronary artery disease, and now thrombocytosis. We will call on Dr. Cano, oncology/hematology to evaluate the elevated platelets. Jonah Ward DO cc: [id number] TT: 01/07/2017 09:32:20 Confirmation # [id number] Dictation # [id number] jorge
[2017-01-07] MEDS: Nystatin 100,000 Units/gm Cream(15 gm) TOP SCH ×3 (10:19→17:30)
[2017-01-07] MEDS: Multivitamin Therapeutic Tab PO SCH (10:20)
[2017-01-07] MEDS ORDERED: cefTRIAXone 1 gm 100 ML IVPB SCH (11:30)
--- NOTE | 2017-01-07 11:45 | PN ---
DATE: 01/07/2017 The patient is seen in bed, no acute distress, nontoxic, in room 313. PHYSICAL EXAMINATION: VITAL SIGNS: Temperature is 98, blood pressure is 140/60, respiratory rate of 18. HEENT: Unremarkable. NECK: Supple. LUNGS: Have decreased breath sounds. HEART: Normal S1, S2. ABDOMEN: Soft and nontender. No organomegaly, no rebound, no guarding, no masses. LABORATORY EXAMINATION: Reveals a white count of 9.4, hemoglobin of 10 and platelets of 718. The ch emistries reveal the BUN of 24, creatinine of 1.7. Urinalysis is noted. ASSESSMENT AND PLAN: An 81-year-old female with severe sepsis secondary to Escherichia coli bacterem ia and pyelonephritis and leukocytosis, day #10 of ceftriaxone. Can complete 14 days of antibiotics. May switch to p.o. antibiotics. May use p.o. Cipro upon discharge. Dr. Jonah Ward's note from this morning is reviewed. Dr. Justino Lima's note is reviewed. Review of the orders reveals the ce ftriaxone has fallen off the medication card-ex, although I renewed it did yesterday. We will renew it again. Johnie Tapia MD cc: [id number] TT: 01/07/2017 11:45:03 Confirmation # [id number] Dictation # [id number] tn
[2017-01-07] MEDS: Insulin Detemir 100 units/ml Vial (Levemir) SC SCH (21:32)
--- NOTE | 2017-01-07 23:09 | CP.PCM.PN ---
Subjective - Date & Time of Evaluation Date of Evaluation: 01/07/17 Time of Evaluation: 20:30 Objective - Vital Signs/Intake and Output Vital Signs (last 24 hours): Temp Pulse Resp BP Pulse Ox 98.1 F 95 H 20 119/54 L 97 01/07/17 06:00 01/07/17 17:30 01/07/17 06:00 01/07/17 17:30 01/07/17 06:00 - Medications Medications: Current Medications Acetaminophen (Tylenol 325mg Tab) 650 mg PO Q6H PRN PRN Reason: Fever >100.4 F Last Admin: 01/06/17 21:29 Dose: 650 mg Amlodipine Besylate (Norvasc) 10 mg PO DAILY [facility] Last Admin: 01/07/17 10:19 Dose: 10 mg Aspirin (Aspirin Chewable) 81 mg PO 0800 [facility] Last Admin: 01/07/17 08:11 Dose: 81 mg Atorvastatin Calcium (Lipitor) 40 mg PO DIN [facility] Last Admin: 01/07/17 17:30 Dose: 40 mg Benzonatate (Tessalon Perles) 100 mg PO TID [facility] Last Admin: 01/07/17 17:31 Dose: 100 mg Budesonide (Pulmicort Respules) 0.5 mg IH [id number] [facility] Last Admin: 01/07/17 20:13 Dose: 0.5 mg Clopidogrel Bisulfate (Plavix) 75 mg PO DAILY [facility] Last Admin: 01/07/17 10:20 Dose: 75 mg Enoxaparin Sodium (Lovenox) 30 mg SC 0600 [facility] PRN Reason: Protocol Last Admin: 01/07/17 05:32 Dose: 30 mg Ceftriaxone Sodium (Rocephin 1 Gram Ivpb) 100 mls @ 100 mls/hr IVPB 0600 [facility] PRN Reason: Protocol Stop: 01/12/17 06:01 Insulin Detemir (Levemir) 30 unit SC HS [facility] Last Admin: 01/07/17 21:32 Dose: 30 unit Insulin Human Regular (Humulin R High) 0 units SC ACHS [facility] PRN Reason: Protocol Last Admin: 01/07/17 21:32 Dose: Not Given Levalbuterol HCl (Xopenex) 0.63 mg IH [id number] [facility] Last Admin: 01/07/17 20:13 Dose: 0.63 mg Levalbuterol HCl (Xopenex) 0.63 mg IH Q2 PRN PRN Reason: Shortness of Breath Last Admin: 01/01/17 23:15 Dose: 0.63 mg Losartan Potassium (Cozaar) 25 mg PO DAILY [facility] Last Admin: 01/05/17 10:18 Dose: 25 mg Metoprolol Tartrate (Lopressor) 25 mg PO 0800,1800 [facility] Last Admin: 01/07/17 17:30 Dose: Not Given Multivitamins (Thera Tab) 1 tab PO DAILY [facility] Last Admin: 01/07/17 10:20 Dose: 1 tab Nystatin (Mycostatin Cream) 0 ea TOP TID [facility] Last Admin: 01/07/17 17:30 Dose: 1 appl Pantoprazole Sodium (Protonix Ec Tab) 40 mg PO 0630,1730 [facility] Last Admin: 01/07/17 17:31 Dose: 40 mg Sitagliptin Phosphate (Januvia) 50 mg PO DAILY [facility] Last Admin: 01/07/17 10:19 Dose: 50 mg - Labs Labs: 01/07/17 07:00 01/07/17 07:00 Assessment and Plan (1) Acute renal failure Status: Acute (2) CAD (coronary artery disease) Status: Acute (3) Diabetes Status: Acute (4) HTN (hypertension) Status: Acute (5) Sepsis Status: Acute
[2017-01-08] MEDS: Levalbuterol 0.63 MG/3 ML Inhal Soln UD IH SCH ×4 (02:50→19:54)
[2017-01-08 05:33] LABS: CREATININE, RANDOM URINE 19 mg/dL (20-320)
[2017-01-08] MEDS: Enoxaparin 30 mg Syringe SC SCH (05:37)
[2017-01-08] MEDS: Pantoprazole 40 mg EC Tab PO SCH ×2 (05:37→17:18)
[2017-01-08] MEDS: cefTRIAXone 1 gm 100 ML IVPB SCH (05:38)
[2017-01-08] MEDS: Insulin Reg-HIGH-Coverage SC SCH ×4 (06:32→22:08)
[2017-01-08 07:09] LABS: HEMATOCRIT 30.3 % (36.0-48.0); MEAN CELL VOLUME 90.2 fL (80.0-105.0); MEAN CORPUSCULAR HEMOGLOBIN 28.6 pg (25.0-35.0); MEAN CORPUSCULAR HGB CONC 31.7 g/dl (31.0-37.0); MEAN PLATELET VOLUME 9.3 fl (7.0-11.0); RED CELL DISTRIBUTION WIDTH 14.7 % (11.5-14.5); WHITE BLOOD COUNT 9.4 10^3/ul (4.5-11.0)
[2017-01-08 07:18] LABS: ALB/GLOB RATIO 0.8 (1.1-1.8); ALKALINE PHOSPHATASE 117 U/L (38-133); ALT/SGPT 33 U/L (7-56); AST/SGOT 39 U/L (15-39); BILIRUBIN,TOTAL 0.5 mg/dL (0.2-1.3); BLOOD UREA NITROGEN 25 mg/dL (7-21); CALCIUM 8.6 mg/dL (8.4-10.5); CARBON DIOXIDE 27 mmol/L (21-33); CHLORIDE 102 mmol/L (98-107); GFR AFRICAN-AMERICAN 35; GLUCOSE,RANDOM 154 mg/dL (70-110); SODIUM 137 mmol/L (132-148); TOTAL PROTEIN 7.7 g/dL (5.8-8.3)
[2017-01-08] MEDS: Budesonide 0.5 mg/2 ml Inhal Susp UD IH SCH ×2 (07:19→19:54)
--- NOTE | 2017-01-08 08:34 | PN ---
DATE: 01/08/2017 PULMONARY NOTE SUBJECTIVE: The patient appears very comfortable this morning. She is not short of breath at rest. PHYSICAL EXAMINATION: VITAL SIGNS: Temperature is 98.3, pulse 100, respirations 18, blood pressure 127/63. Oxygen saturation on room air is 98%. HEENT: Normocephalic, atraumatic. No JVD. CARDIOVASCULAR: Positive S1, S2. No S3. LUNGS: Clear bilaterally. EXTREMITIES: Mild edema. No cyanosis, no clubbing. Calves are nontender to palpation. GASTROINTESTINAL: Abdomen is soft. It is not distended and nontender to palpation. Bowel sounds are positive. SKIN: No acute rash. NEUROLOGIC: Limited at the present time. IMPRESSION: 1. Acute pyelonephritis. 2. Sepsis syndrome. 3. Anemia. 4. Renal insufficiency. 5. Minimal bronchospasm. 6. Coronary artery disease. PLAN: The patient appears very comfortable this morning. She is not short of breath at rest. She states her cough is much less. She also states to feeling much better overall. On physical exam, her lungs remain clear. Oxygen saturation on room air is now 98%. I will continue with the current nebulizer treatments and inhaled steroids (added yesterday) for now. The patient remains on antibiotic therapy - as per infectious disease. There are no temperatures noted. There is no leukocytosis. Clinical status of the patient is significantly improved. She is advised to increase her activity as tolerated. I will discuss the above with Dr. Ward. Justino Lima MD cc: [id number] TT: 01/08/2017 08:33:48 Confirmation # [id number] Dictation # [id number] RAMEZ
--- NOTE | 2017-01-08 08:55 | PN ---
DATE: 01/08/2017 I saw the patient sitting up in bed, eating her breakfast. She is comfortable. She is improving wit h physical therapy. No chest pain or shortness of breath. No abdominal pain. PHYSICAL EXAMINATION: VITAL SIGNS: 98.3 temp, 100 pulse, 127/63 blood pressure, 18 respiratory rate, 98% O2 sat on room ai r. HEENT: Head is atraumatic, normocephalic. Right eye blind. Throat moist. NECK: Supple. HEART: Regular rate. LUNGS: Clear to auscultation with decreased breath sounds. No wheezes, no rhonchi, no rales. ABDOMEN: Soft, obese, nontender, positive bowel sounds, no guarding, no rebound. EXTREMITIES: Have no edema today. MEDICATIONS: She is currently on Lopressor, Lovenox, aspirin, Cozaar, insulin coverage, Januvia, Lev giuliano, Lipitor, Mycostatin, Norvasc, Plavix, Protonix, Pulmicort, Rocephin, Tessalon Perles, Thera-Tab s, Tylenol, Xopenex. LABORATORY DATA: She has a 137 sodium, potassium is 5, BUN 25, creatinine 1.7, GFR is 29. Sugar is 154, calcium is 8.6, total bili is 0.5, AST is 39, ALT is 33, alk phos is 117. White count is 9.4, h emoglobin 9.6, hematocrit 30.3, platelets are 651, better. She is being seen by pulmonary, renal, infectious disease. She will be going home tomorrow. She is definitely improved. I will write prescriptions tomorrow for her. They are to come into my office t o follow me on the outpatient. She was here for severe sepsis, pyelonephritis. When she gets discha rged, we will put her on Cipro tomorrow. I encouraged her to drink lots of fluids. We will check he r labs tomorrow. She should be discharged tomorrow. Hopefully, she will do very well. She has got acute renal failure, coronary artery disease, diabetes, hypertension, acute sepsis. Jonah Ward DO cc: [id number] TT: 01/08/2017 08:55:50 Confirmation # [id number] Dictation # [id number] tn
[2017-01-08] MEDS: Nystatin 100,000 Units/gm Cream(15 gm) TOP SCH ×3 (09:44→17:18)
[2017-01-08] MEDS: Multivitamin Therapeutic Tab PO SCH (09:45)
--- NOTE | 2017-01-08 15:14 | PN ---
DATE: 01/08/2017 The patient is in bed in no acute distress, nontoxic. PHYSICAL EXAMINATION: VITAL SIGNS: Temperature is 98, blood pressure is 140/70, respiratory rate of 18, the heart rate of 100. HEENT: Unremarkable. NECK: Supple. LUNGS: Decreased breath sounds. HEART: Normal S1, S2. ABDOMEN: Soft, nontender. LABORATORY EXAMINATION: Reveals a white count of 9.4, hemoglobin of 9, platelets of 661, BUN of 25, creatinine of 1.7. Urinalysis is noted. Microbiology is noted. Review of systems reveals the patie nt to be on ceftriaxone. ASSESSMENT AND PLAN: An 81-year-old female with severe sepsis secondary to Escherichia coli bacterem ia and pyelonephritis and leukocytosis, day #11 of ceftriaxone. We will switch to p.o. antibiotics u nina discharge, may use p.o. Cipro. Would complete 14 total days of antibiotics. Johnie Tapia MD cc: [id number] TT: 01/08/2017 15:13:36 Confirmation # [id number] Dictation # [id number] tn
--- NOTE | 2017-01-08 15:21 | PN ---
DATE: 01/08/2017 The patient is in the TCU, doing well. She is participating with physical therapy. No chest pain, n o shortness of breath noted. PHYSICAL EXAMINATION: VITAL SIGNS: Blood pressure is 148/75, heart rate is in the 90s. NECK: Negative JVD. LUNGS: Without rales. HEART: Reveals S1, S2. EXTREMITIES: Without edema. LABORATORY DATA: Hemoglobin is 9.6, BUN and creatinine is 25 and 1.7. IMPRESSION: 1. Resolution of cough since her ARB has been stopped. 2. Hypertension. 3. Stable angina. 4. Coronary artery disease. 5. Renal insufficiency. 6. Diabetes mellitus. PLAN: Given these findings, the patient has successfully completed her physical therapy. From a car diac perspective, the patient can be discharged tomorrow. Jatinder Muñoz MD cc: [facility] TT: 01/08/2017 15:20:33 Confirmation # [id number] Dictation # [id number] gustavo
[2017-01-08] MEDS: Insulin Detemir 100 units/ml Vial (Levemir) SC SCH (22:07)
--- NOTE | 2017-01-08 23:34 | CP.PCM.PN ---
Objective - Vital Signs/Intake and Output Vital Signs (last 24 hours): Temp Pulse Resp BP Pulse Ox 97.6 F 102 H 18 130/74 100 01/08/17 16:00 01/08/17 17:18 01/08/17 16:00 01/08/17 17:18 01/08/17 16:00 - Medications Medications: Current Medications Acetaminophen (Tylenol 325mg Tab) 650 mg PO Q6H PRN PRN Reason: Fever >100.4 F Last Admin: 01/06/17 21:29 Dose: 650 mg Amlodipine Besylate (Norvasc) 10 mg PO DAILY [facility] Last Admin: 01/08/17 09:44 Dose: 10 mg Aspirin (Aspirin Chewable) 81 mg PO 0800 [facility] Last Admin: 01/08/17 08:09 Dose: 81 mg Atorvastatin Calcium (Lipitor) 40 mg PO DIN [facility] Last Admin: 01/08/17 17:17 Dose: 40 mg Benzonatate (Tessalon Perles) 100 mg PO TID [facility] Last Admin: 01/08/17 17:19 Dose: 100 mg Budesonide (Pulmicort Respules) 0.5 mg IH [id number] [facility] Last Admin: 01/08/17 19:54 Dose: 0.5 mg Clopidogrel Bisulfate (Plavix) 75 mg PO DAILY [facility] Last Admin: 01/08/17 09:45 Dose: 75 mg Enoxaparin Sodium (Lovenox) 30 mg SC 0600 [facility] PRN Reason: Protocol Last Admin: 01/08/17 05:37 Dose: 30 mg Ceftriaxone Sodium (Rocephin 1 Gram Ivpb) 100 mls @ 100 mls/hr IVPB 0600 [facility] PRN Reason: Protocol Stop: 01/12/17 06:01 Last Admin: 01/08/17 05:38 Dose: 100 mls/hr Insulin Detemir (Levemir) 30 unit SC HS [facility] Last Admin: 01/08/17 22:07 Dose: 30 unit Insulin Human Regular (Humulin R High) 0 units SC ACHS [facility] PRN Reason: Protocol Last Admin: 01/08/17 22:08 Dose: 2 units Levalbuterol HCl (Xopenex) 0.63 mg IH [id number] [facility] Last Admin: 01/08/17 19:54 Dose: 0.63 mg Levalbuterol HCl (Xopenex) 0.63 mg IH Q2 PRN PRN Reason: Shortness of Breath Last Admin: 01/01/17 23:15 Dose: 0.63 mg Losartan Potassium (Cozaar) 25 mg PO DAILY [facility] Last Admin: 01/05/17 10:18 Dose: 25 mg Metoprolol Tartrate (Lopressor) 25 mg PO 0800,1800 [facility] Last Admin: 01/08/17 17:18 Dose: 25 mg Multivitamins (Thera Tab) 1 tab PO DAILY [facility] Last Admin: 01/08/17 09:45 Dose: 1 tab Nystatin (Mycostatin Cream) 0 ea TOP TID [facility] Last Admin: 01/08/17 17:18 Dose: Not Given Pantoprazole Sodium (Protonix Ec Tab) 40 mg PO 0630,1730 [facility] Last Admin: 01/08/17 17:18 Dose: 40 mg Sitagliptin Phosphate (Januvia) 50 mg PO DAILY [facility] Last Admin: 01/08/17 09:44 Dose: 50 mg - Labs Labs: 01/08/17 06:30 01/08/17 06:30 Assessment and Plan (1) Acute renal failure Status: Acute (2) CAD (coronary artery disease) Status: Acute (3) Diabetes Status: Acute (4) HTN (hypertension) Status: Acute (5) Sepsis Status: Acute
[2017-01-09] MEDS: Levalbuterol 0.63 MG/3 ML Inhal Soln UD IH SCH ×3 (02:46→13:30)
[2017-01-09] MEDS: cefTRIAXone 1 gm 100 ML IVPB SCH (05:23)
[2017-01-09] MEDS: Enoxaparin 30 mg Syringe SC SCH (05:23)
[2017-01-09] MEDS: Pantoprazole 40 mg EC Tab PO SCH (05:29)
[2017-01-09] MEDS: Insulin Reg-HIGH-Coverage SC SCH ×2 (06:36→11:37)
[2017-01-09] MEDS: Budesonide 0.5 mg/2 ml Inhal Susp UD IH SCH (07:14)
[2017-01-09 07:37] LABS: HEMATOCRIT 30.6 % (36.0-48.0); MEAN CORPUSCULAR HEMOGLOBIN 28.2 pg (25.0-35.0); MEAN CORPUSCULAR HGB CONC 31.4 g/dl (31.0-37.0); MEAN PLATELET VOLUME 9.3 fl (7.0-11.0); RED CELL DISTRIBUTION WIDTH 14.8 % (11.5-14.5); WHITE BLOOD COUNT 9.1 10^3/ul (4.5-11.0)
[2017-01-09 07:53] LABS: ALB/GLOB RATIO 0.8 (1.1-1.8); BILIRUBIN,TOTAL 0.3 mg/dL (0.2-1.3); CALCIUM 8.6 mg/dL (8.4-10.5); POTASSIUM 4.4 mmol/L (3.6-5.0); TOTAL PROTEIN 7.3 g/dL (5.8-8.3)
--- NOTE | 2017-01-09 08:30 | PN ---
DATE: 01/09/2017 SUBJECTIVE: The patient appears very comfortable at rest. She is not short of breath. PHYSICAL EXAMINATION: VITAL SIGNS: Temperature is 97.7, pulse 94, respirations 18, blood pressure 156 /65. Oxygen saturation on room air is 98%. HEENT: Normocephalic, atraumatic. No JVD. CARDIOVASCULAR: Positive S1, S2. No S3. LUNGS: Clear bilaterally. EXTREMITIES: Mild edema. No cyanosis, no clubbing. Calves are nontender to palpation. GASTROINTESTINAL: Abdomen is soft. It is nondistended and nontender to palpation. Bowel sounds are positive. SKIN: No acute rash. NEUROLOGIC: Exam is limited at the present time. IMPRESSION: 1. Acute pyelonephritis. 2. Sepsis syndrome. 3. Anemia. 4. Renal insufficiency. 5. Minimal bronchospasm. 6. Coronary artery disease. PLAN: The patient appears very comfortable this morning. She is not short of breath at rest. The patient states that her cough is much, much less. She is feeling much better overall. On physical exam, her lungs remain clear. Oxygen saturation on room air is 98%. I will continue with the current nebulizer treatments and inhaled steroids for now. Renal and GI evaluations are noted. Clinical status of the patient is significantly improved. I will discuss the above with Dr. Ward. Justino Lima MD cc: [id number] TT: 01/09/2017 08:30:08 Confirmation # [id number] Dictation # [id number] MYRICK
[2017-01-09 09:06] LABS: IRON 62 ug/dL (45-180)
[2017-01-09] MEDS: Nystatin 100,000 Units/gm Cream(15 gm) TOP SCH (09:35)
[2017-01-09] MEDS: Multivitamin Therapeutic Tab PO SCH (09:36)
--- NOTE | 2017-01-09 09:47 | DS ---
I saw her resting comfortably in the TCU. She getting up out of bed to chair. She is eating her john akfast. She is doing very well. Still with a little bit of a cough but much better. She knows she is going home today. PHYSICAL EXAMINATION: VITAL SIGNS: 97.7 temp, 74 pulse, 156/65 blood pressure, 20 respiratory rate, 98% O2 sat on room air . HEENT: Head is atraumatic, normocephalic. Right eye blind. Throat moist. NECK: Supple. HEART: Regular rate. LUNGS: Clear to auscultation, occasional cough, which is improved. ABDOMEN: Soft, obese, nontender. EXTREMITIES: No edema. MEDICATIONS: She is going to go home on a lot of medications: Aspirin, Cozaar, Januvia, Levemir, Li pitor, Lopressor, Mycostatin cream, Norvasc, Plavix, Protonix, Pulmicort inhaler, Tessalon Perles, Th era-Tabs, Xopenex. I am going to give her Cipro 500 twice a day for 7 days. She is being seen by pulmonary, renal, cardio and infectious disease. She is very well. She will fo llow up with Dr. Gonzalez, and she was here for diabetes, severe sepsis, pyelonephritis, coronary artery disease, hypertension, anemia and renal insufficiency. If she cannot get out of the house, she knows she can call me for a house call. Jonah Ward DO cc: [id number] TT: 01/09/2017 09:46:49 an
[2017-01-09 11:05] VITALS: BP 145/64; PULSE 86; RESP 18; TEMP 97.5; O2SAT 100
--- NOTE | 2017-01-09 15:35 | PN ---
DATE: 01/09/2017 The patient is in bed, in no acute distress, was seen in room 313 early this morning. No fevers and chills. PHYSICAL EXAMINATION: VITAL SIGNS: Temperature is 98, blood pressure is 120/70, respiratory rate 16. HEENT: Unremarkable. NECK: Supple. LUNGS: Decreased breath sounds. HEART: Normal S1, S2. ABDOMEN: Soft. LABORATORY EXAMINATION: Reviewed. ASSESSMENT AND PLAN: An 81-year-old with severe sepsis secondary to Escherichia coli bacteremia and pyelonephritis. Completed the antibiotics intravenously. The patient ready to be switched to p.o. C ipro and to be discharged on p.o. Cipro today. Johnie Tapia MD cc: [id number] TT: 01/09/2017 15:34:44 Confirmation # [id number] Dictation # [id number] en
--- NOTE | 2017-01-09 23:17 | PN ---
DATE: 01/09/2017 HISTORY OF PRESENT ILLNESS: The patient is an 81-year-old female with past medical history of hyperte nsion, diabetes, CAD, status post stent and CKD IIIB, initially admitted for UTI sepsis, acute renal failure. Subsequently discharged to TCU. The patient today reports feeling well. Denies any shortn ess of breath. Reports leg swelling is the same. PHYSICAL EXAMINATION: VITAL SIGNS: This morning, blood pressure 156/65, heart rate 94, respirations 20s, temperature 97.7, O2 sat 98% on room air. GENERAL: No distress, speaking coherently in full sentences. HEENT: Moist mucous membranes. No scleral icterus. CHEST: Clear to auscultation bilaterally. No rales, no rhonchi, no wheezes. HEART: S1, S2 positive. No murmur, no gallops, no rubs. ABDOMEN: Soft, nontender, nondistended. EXTREMITIES: Mild to moderate bilateral lower leg edema. LABORATORY DATA: This morning, WBC 9.1, hemoglobin 9.6, hematocrit 30.6, platelets 591. Chemistry p tayla: Sodium 140, potassium 4.4, chloride 105, bicarb 24, BUN 23, creatinine 1.5, glucose 135, calci um 8.6, albumin 3.2. Iron saturation 23%. Iron 62, TIBC 274, ferritin 51.5. ASSESSMENT: 1. Acute kidney injury on chronic kidney disease IIIB. Acute kidney injury secondary to acute tubula r necrosis due to having received a contrast CT. Renal function had improved, but not to baseline. Worsened after starting her back on an ARB and mild diuretics. Both subsequently held with renal func tion improving. Serum creatinine today 1.5. Baseline around 1.3. Acute tubular necrosis may take yu e to resolve and sometimes may never return to baseline value. Will continue to hold losartan for no w. We will follow up with patient as an outpatient. Can continue gentle diuresis with Lasix p.o. 20 mg b.i.d. 2. Chronic kidney disease stage IIIB, proteinuric kidney disease, likely due to diabetic nephropathy . Limited serologic workup for other causes of chronic kidney disease is unremarkable. Will follow u p further as an outpatient. 3. Hypertension. Blood pressure uncontrolled today, likely due to volume excess. Will start small dose of Lasix 20 mg p.o. b.i.d. Otherwise, continue amlodipine 10 mg daily and Lopressor 25 mg b.i.d . 4. Diabetes. Started on basal insulin during this admission. Should continue to hold metformin in the setting of renal insufficiency. Reza Mayberry MD cc: [id number] TT: 01/09/2017 23:16:39 Confirmation # [id number] Dictation # [id number] ln
[2017-01-13 11:51] LABS: JAK2 V617F NOT DETECTED (())
== END 2017-01-09 14:08 | disposition home health service (06) | DRG 871 ==
LOC: TRCU 21:09
PROVIDERS: ADMIT Family Medicine; ATTEND Family Medicine
PROC: F07Z9FZ Gait Training/Functional Ambulation Treatment using Assistive, Adaptive, Supportive or Protective Equipment (ICD-10-PCS; principal; 2017-01-02)
PROC: F07M6ZZ Therapeutic Exercise Treatment of Musculoskeletal System - Whole Body (ICD-10-PCS; 2017-01-02)
PROC: F08Z1ZZ Dressing Techniques Treatment (ICD-10-PCS; 2017-01-02)
PROC: F08Z2ZZ Grooming/Personal Hygiene Treatment (ICD-10-PCS; 2017-01-02)
PROC: F08Z0ZZ Bathing/Showering Techniques Treatment (ICD-10-PCS; 2017-01-02)
PROC: F08Z4ZZ Home Management Treatment (ICD-10-PCS; 2017-01-02)
DX: A41.51 Sepsis due to Escherichia coli [E. coli] (principal); N17.0 Acute kidney failure with tubular necrosis; N10 Acute pyelonephritis; I25.110 Atherosclerotic heart disease of native coronary artery with unstable angina pectoris; D64.9 Anemia, unspecified; N18.3 Chronic kidney disease, stage 3 (moderate); I12.9 Hypertensive chronic kidney disease with stage 1 through stage 4 chronic kidney disease, or unspecified chronic kidney disease; Z95.5 Presence of coronary angioplasty implant and graft; R65.20 Severe sepsis without septic shock; Z96.651 Presence of right artificial knee joint; Z90.49 Acquired absence of other specified parts of digestive tract; Z79.899 Other long term (current) drug therapy; Z79.84 Long term (current) use of oral hypoglycemic drugs; Z79.82 Long term (current) use of aspirin; T50.8X5A Adverse effect of diagnostic agents, initial encounter; N14.1 Nephropathy induced by other drugs, medicaments and biological substances; K21.9 Gastro-esophageal reflux disease without esophagitis; I48.91 Unspecified atrial fibrillation; E11.22 Type 2 diabetes mellitus with diabetic chronic kidney disease; E11.21 Type 2 diabetes mellitus with diabetic nephropathy; H54.41 Blindness, right eye, normal vision left eye; R40.2413 Glasgow coma scale score 13-15, at hospital admission; Z91.041 Radiographic dye allergy status; R05 Cough; J98.01 Acute bronchospasm; D47.3 Essential (hemorrhagic) thrombocythemia

== ENCOUNTER 2017-12-28 13:10 | Inpatient (IN) | payer MEDICARE, OTHER ==
[2017-12-28 13:10] VITALS: BMI 24.3
[2017-12-28] MEDS ORDERED: Vancomycin 1gm in NS 250ml 1 GM/250 ML BAG IVPB STA (13:50)
[2017-12-28] MEDS ORDERED: Sodium Chloride 0.9% 1,000 ML IV STA (13:52)
--- NOTE | 2017-12-28 14:14 | ED PDOC ---
Arrival/HPI - General Chief Complaint: Abnormal Skin Integrity Time Seen by Provider: 12/28/17 13:26 Historian: Patient - History of Present Illness Narrative History of Present Illness (Text): 12/28/17 14:15 82 year old female, with past medical history of renal insufficiency, pyelonephritis, hypertension, insulin-dependent diabetes, CAD with coronary placement, right sided soft tissue abscess and cholecystectomy, presents to the Emergency department accompanied by family complaining of intermittent rigors accompanied by fevers for past 1 week. Patient was scheduled for travel to [facility], which was cancelled upon sudden onset of rigor and fever of 100.2 today , bringing her to the Emergency department instead. Patient informs taking cephalexin qid nos mg with no improvement to symptoms. Patient informs increased confusion from baseline and diminished appetite since onset. Patient denies any nausea, vomiting, diarrhea, abdominal pain, chest pain, shortness of breath or any other complaints. Symptom Onset: Gradual Symptom Course: Worsening Quality: Aching Activities at Onset: Light Context: Home Past Medical History - Provider Review Nursing Documentation Reviewed: Yes - Infectious Disease Hx of Infectious Diseases: None - Reproductive Menopause: Yes - Cardiac Hx Cardiac Disorders: (CAD, [place], Angioplasty) - Pulmonary Hx Respiratory Disorders: No - Neurological Hx Neurological Disorder: Yes (PHERIPHERAL NEUROPATHY) - HEENT Hx HEENT Disorder: Yes Hx Blind: Yes (RIGHT EYE-INJURY) - Renal Hx Renal Disorder: No - Endocrine/Metabolic Hx Diabetes Mellitus Type 2: Yes - Hematological/Oncological Hx Blood Disorders: No - Integumentary Hx Dermatological Disorder: No - Musculoskeletal/Rheumatological Hx Musculoskeletal Disorders: Yes Hx Falls: Yes - Gastrointestinal Hx Gastrointestinal Disorders: Yes (POST LAP CONRAD 2-3-17,ACUTE CHOLEYCYSTITIS, GERD) - Genitourinary/Gynecological Hx Genitourinary Disorders: No - Psychiatric Hx Emotional Abuse: No Hx Physical Abuse: No Hx Substance Use: No - Surgical History Hx Cardiac Catheterization: Yes Hx Coronary Stent: Yes (X1) Hx Orthopedic Surgery: Yes Other/Comment: R eye surgery - Anesthesia Hx Anesthesia: Yes Hx Anesthesia Reactions: No Hx Malignant Hyperthermia: No - Suicidal Assessment Feels Threatened In Home Enviroment: No Family/Social History - Physician Review Nursing Documentation Reviewed: Yes Family/Social History: No Known Family HX Smoking Status: Never Smoked Hx Alcohol Use: No Hx Substance Use: No Allergies/Home Meds Allergies/Adverse Reactions: Allergies Iodinated Contrast- Oral and IV Dye Allergy (Verified 12/28/17 13:32) NAUSEA Home Medications: Home Meds Medication Instructions Recorded Confirmed Budesonide/Formoterol Fumarate 1 puff INH BID 12/28/17 12/28/17 [Symbicort 80-4.5 Mcg Inhaler] Metformin ER [Glucophage XR] 500 tab PO DAILY 12/28/17 12/28/17 Review of Systems - Physician Review All systems were reviewed & negative as marked: Yes - Review of Systems Constitutional: Fevers, Other (Rigor) Eyes: Normal ENT: Normal Respiratory: Normal. absent: SOB Cardiovascular: Normal. absent: Chest Pain Gastrointestinal: Appetite Changes. absent: Abdominal Pain, Diarrhea, Nausea, Vomiting Genitourinary Female: Normal Musculoskeletal: Normal Skin: Normal Neurological: Headache Endocrine: Normal Hemo/Lymphatic: Normal Psychiatric: Normal Physical Exam Vital Signs Reviewed: Yes Vital Signs Temp Pulse Resp BP Pulse Ox 12/28/17 15:31 99 H 16 145/74 100 12/28/17 13:22 99 F 106 H 98 H 152/70 H 100 Temperature: Afebrile Blood Pressure: Hypertensive Pulse: Tachycardic Respiratory Rate: Normal Appearance: Positive for: Well-Appearing, Non-Toxic, Comfortable Pain Distress: None Mental Status: Positive for: Alert and Oriented X 3 - Systems Exam Head: Present: Atraumatic, Normocephalic Pupils: Present: PERRL, Other (right sided cataract) Extroacular Muscles: Present: EOMI Conjunctiva: Present: Normal Mouth: Present: Moist Mucous Membranes Pharnyx: Present: ERYTHEMA Neck: Present: Normal Range of Motion, Other (flat neck veins). No: JVD Respiratory/Chest: Present: Good Air Exchange, Decreased Breath Sounds ( decreased breath sounds at the bases bilaterally). No: Respiratory Distress, Accessory Muscle Use Cardiovascular: Present: Regular Rate and Rhythm, Normal S1, S2. No: Murmurs Abdomen: Present: Normal Bowel Sounds, Other (obese; soft with right upper quadrant abscess). No: Tenderness, Distention, Peritoneal Signs Back: Present: Normal Inspection Upper Extremity: Present: Normal Inspection. No: Cyanosis, Edema Lower Extremity: Present: Normal Inspection, Other (peripheral edema.). No: Edema Neurological: Present: GCS=15, CN II-XII Intact, Speech Normal Skin: Present: Warm, Dry, Normal Color. No: Rashes Psychiatric: Present: Alert, Oriented x 3, Normal Insight, Normal Concentration Medical Decision Making ED Course and Treatment: 12/28/17 14:28 Impression: 82 year old female presents to the Emergency department for intermittent fever and rigor for past 1 week. Differential Diagnosis included but are not limited to: occult sepsis vs. occult ischemia possible from tissue abscess Plan: -- VBG -- CT of Head -- Labs -- EKG -- Chest X-ray -- IV Fluids -- Reassess and disposition Progress Notes: 12/28/17 15:[address] Ward, who is aware and agrees to admit patient to Telemetry under his service. - Lab Interpretations Lab Results: 12/28/17 14:20 12/28/17 14:20 Lab Results 12/28/17 14:20: Sodium 129 L, Chloride 97 L, Potassium 5.9 H* D, Carbon Dioxide 23, Anion Gap 14, BUN 34 H, Creatinine 2.0 H, Est GFR ( Amer) 29, Est GFR (Non-Af Amer) 24, Random Glucose 430 H* D, Calcium 8.9, Phosphorus 3.6, Magnesium 1.8, Total Bilirubin 0.5, AST 54 H, ALT 65 H, Alkaline Phosphatase 195 H, Troponin I < 0.01, NT-Pro-B Natriuret Pep 2090 H, Total Protein 7.3, Albumin 3.3, Globulin 4.0, Albumin/Globulin Ratio 0.8 L 12/28/17 14:20: pO2 45, VBG pH 7.29 L, VBG pCO2 51.0, VBG HCO3 24.5, VBG Total CO2 26.1, VBG O2 Sat (Calc) 81.5 H, VBG Base Excess -2.7 L, VBG Potassium 6.2 H* , Sodium 128.0 L, Chloride 98.0, Glucose 441 H*, Lactate 1.6, FiO2 21.0, Venous Blood Potassium 6.2 H* 12/28/17 14:20: PT 11.9, INR 1.03, APTT 27.0 12/28/17 14:20: WBC 18.0 H D, RBC 3.66, Hgb 11.1 L, Hct 33.7 L, MCV 92.1, MCH 30.3, MCHC 32.9, RDW 13.3, Plt Count 301, MPV 9.8, Gran % 83.2 H, Lymph % (Auto ) 7.2 L, Rhea % (Auto) 9.3 H, Eos % (Auto) 0.2 L, Baso % (Auto) 0.1, Gran # 14.98 H, Lymph # (Auto) 1.3, Rhea # (Auto) 1.7 H, Eos # (Auto) 0.0, Baso # (Auto ) 0.02, ESR Pending 12/28/17 13:45: Urine Color Yellow, Urine Appearance Clear, Urine pH 6.5, Ur Specific [place] 1.020, Urine Protein 100 H, Urine Glucose (UA) 500 H, Urine Ketones Negative, Urine Blood Small H, Urine Nitrate Negative, Urine Bilirubin Negative, Urine Urobilinogen 0.2, Ur Leukocyte Esterase Small H, Urine RBC 1 - 3 , Urine WBC 25 - 30, Ur Epithelial Cells 1 - 3, Urine Bacteria Many - RAD Interpretation Narrative RAD Interpretations (Text): 12/28/17 14:52 Chest X-ray reviewed by radiologist shows no active disease. No significant interval change compared to the prior examination(s). 12/28/17 15:51 Ultrasound of soft tissue reviewed by radiologist, shows skin thickening, subcutaneous edema without drainable collection, mass or other pathologic process. 12/28/17 15:53 CT of head reviewed by radiologist, shows no acute intracranial abnormalities. No significant findings to account for the clinical presentation. Radiology Orders: 12/28/17 13:50 CHEST PORTABLE [RAD] Stat 12/28/17 13:54 SOFT TISSUE LIMITED [US] Stat 12/28/17 13:56 HEAD W/O CONTRAST [CT] Stat Environmental Technical Officer: Radiologist - Medication Orders Current Medication Orders: Dextrose (Dextrose Inj 25%) 10 ml IV ONCE ONE Stop: 12/28/17 15:47 Cefepime HCl (Maxipime 1gm) 1 gm in 100 mls @ 100 mls/hr IVPB ONCE ONE PRN Reason: Protocol Stop: 12/28/17 16:29 Insulin Human Regular (Humulin R Low) 4 units IV ONCE ONE PRN Reason: Protocol Stop: 12/28/17 15:47 Discontinued Medications Acetaminophen (Tylenol 325mg Tab) 975 mg PO STAT STA Stop: 12/28/17 13:57 Last Admin: 12/28/17 15:08 Dose: 975 mg MAR Pain/Vitals Document 12/28/17 15:08 KEVIN (Rec: 12/28/17 15:11 KEVIN [id number]) Pain Reassessment Is This A Pain ReAssessment? Yes Presence of Pain Presence of Pain Yes Pain Scale Used Pain Scale Used Numeric Location Pain Location Body Site abscess to r chest Intensity 4 Scale Used Numeric Vancomycin HCl (Vancomycin 1gm) 1 gm in 250 mls @ 167 mls/hr IVPB STAT STA PRN Reason: Protocol Stop: 12/28/17 15:19 Last Admin: 12/28/17 15:00 Dose: 167 mls/hr eMAR Start Stop Document 12/28/17 15:00 KEVIN (Rec: 12/28/17 15:08 KEVIN [id number]) Intravenous Solution Start Date 12/28/17 Start Time 15:00 End Date 12/28/17 End time 16:30 Total Infusion Time 90 Sodium Chloride (Sodium Chloride 0.9%) 1,000 mls @ 999 mls/hr IV .Q1H1M STA Stop: 12/28/17 14:52 Last Admin: 12/28/17 14:19 Dose: 999 mls/hr eMAR Start Stop Document 12/28/17 14:19 KEVIN (Rec: 12/28/17 14:20 KEVIN [id number]) Intravenous Solution Start Date 12/28/17 Start Time 14:20 End Date 12/28/17 End time 15:20 Total Infusion Time 60 - Scribe Statement The provider has reviewed the documentation as recorded by the Scribandrez Garcia. All medical record entries made by the Scribe were at my direction and personally dictated by me. I have reviewed the chart and agree that the record accurately reflects my personal performance of the history, physical exam, medical decision making, and the department course for this patient. I have also personally directed, reviewed, and agree with the discharge instructions and disposition. Disposition/Present on Arrival - Present on Arrival History of DVT/PE: No History of Uncontrolled Diabetes: No Urinary Catheter: No History of Decub. Ulcer: No History Surgical Site Infection Following: None - Disposition Referrals: Krishan Gonzalez MD [Primary Care Provider] - Follow up with primary Forms: [employer] ([employer])
[2017-12-28 14:23] LABS: PH,URINE 6.5 (4.7-8.0); URINE BILIRUBIN NEGATIVE (NEGATIVE); URINE BLOOD SMALL (NEGATIVE); URINE GLUCOSE (UA) 500 mg/dL (NEGATIVE); URINE LEUKOCYTE ESTERASE SMALL Leu/uL (NEGATIVE); URINE PROTEIN 100 mg/dL (<30 mg/dL); URINE UROBILINOGEN 0.2 E.U./dL (<1 E.U./dL)
[2017-12-28 14:24] LABS: URINE APPEARANCE CLEAR (CLEAR); URINE COLOR YELLOW (YELLOW)
--- NOTE | 2017-12-28 14:35 | RAD ---
HISTORY: Sepsis Patient COMPARISON: 12/28/2016 FINDINGS: LUNGS: No active pulmonary disease. PLEURA: No significant pleural effusion identified, no pneumothorax apparent. CARDIOVASCULAR: No radiographic findings to suggest acute or significant cardiovascular disease. OSSEOUS STRUCTURES: No significant abnormalities. VISUALIZED UPPER ABDOMEN: Normal. OTHER FINDINGS: Deviation of the trachea to the right again identified. IMPRESSION: No active disease. No significant interval change compared to the prior examination(s).
[2017-12-28 14:43] LABS: BASO # 0.02 K/mm3 (0.0-2.0); BASO % 0.1 % (0.0-3.0); EOS % 0.2 % (1.5-5.0); GRAN # 14.98 (1.4-6.5); GRAN % 83.2 % (50.0-68.0); HEMOGLOBIN 11.1 g/dL (12.0-16.0); LYMPH # 1.3 (1.2-3.4); LYMPH % 7.2 % (22.0-35.0); MEAN CELL VOLUME 92.1 fl (80.0-105.0); MEAN CORPUSCULAR HEMOGLOBIN 30.3 pg (25.0-35.0); MEAN CORPUSCULAR HGB CONC 32.9 g/dl (31.0-37.0); MEAN PLATELET VOLUME 9.8 fl (7.0-11.0); MONO # 1.7 (0.1-0.6); MONO % 9.3 % (1.0-6.0); RBC 3.66 10^6/uL (3.5-6.1); RED CELL DISTRIBUTION WIDTH 13.3 % (11.5-14.5)
[2017-12-28 14:54] LABS: INR 1.03 (0.93-1.08); PROTHROMBIN TIME 11.9 SECONDS (9.4-12.5)
--- NOTE | 2017-12-28 15:05 | US ---
PROCEDURE: Soft tissue ultrasound, limited HISTORY: ruq abscess /determine extent COMPARISON: None TECHNIQUE: Standard protocol for this study/examination. FINDINGS: Area of interest right upper quadrant: Cutaneous and subcutaneous edema. No drainable collection, sinus tract or other pathologic process. IMPRESSION: Skin thickening, subcutaneous edema without drainable collection, mass or other pathologic process.
--- NOTE | 2017-12-28 15:09 | CT ---
PROCEDURE: CT HEAD WITHOUT CONTRAST. HISTORY: headache COMPARISON: None available. TECHNIQUE: Axial computed tomography images were obtained through the head/brain without intravenous contrast. Coronal and sagittal reconstructed images. Radiation dose: Total exam DLP = 1540.96 mGy-cm. This CT exam was performed using one or more of the following dose reduction techniques: Automated exposure control, adjustment of the mA and/or kV according to patient size, and/or use of iterative reconstruction technique. FINDINGS: HEMORRHAGE: No intracranial hemorrhage. BRAIN: No mass effect or edema. Cortical and cerebellar atrophy, periventricular small vessel disease. Encephalomalacia focus left frontal parietal region. 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 VENTRICLES: Unremarkable. No hydrocephalus. CALVARIUM: Unremarkable. PARANASAL SINUSES: Unremarkable as visualized. No significant inflammatory changes. MASTOID AIR CELLS: Unremarkable as visualized. No inflammatory changes. OTHER FINDINGS: None. IMPRESSION: No acute intracranial abnormalities. No significant findings to account for the clinical presentation.
[2017-12-28 15:10] LABS: B-TYPE NATRIURETIC PEPTIDE 2090 pg/mL (0-450); TROPONIN I < 0.01 ng/mL
[2017-12-28 15:12] LABS: ALB/GLOB RATIO 0.8 (1.1-1.8); ALBUMIN 3.3 g/dL (3.0-4.8); ALT/SGPT 65 U/L (7-56); AST/SGOT 54 U/L (14-36); BLOOD UREA NITROGEN 34 mg/dL (7-21); CALCIUM 8.9 mg/dL (8.4-10.5); GFR AFRICAN-AMERICAN 29; GFR NON-AFRICAN AMERICAN 24
[2017-12-28 15:17] LABS: URINE BACTERIA MANY (NEG); URINE WBC 25 - 30 /hpf (0-6)
[2017-12-28] MEDS ORDERED: Cefepime 1gm in NS 100ml 1 GM/100 ML BAG IVPB ONE (15:30)
[2017-12-28 15:32] LABS: VENOUS BLOOD GAS BASE EXCESS -2.7 mmol/L (0.0-2.0); VENOUS BLOOD GAS PO2 45 mm/Hg (30-55); VENOUS BLOOD PH 7.29 (7.32-7.43)
[2017-12-28] MEDS ORDERED: Insulin Reg-LOW-Coverage IV ONE (15:46)
[2017-12-28] MEDS ORDERED: Dextrose 50% SYRINGE Inj (50 ml) IV ONE (16:00)
[2017-12-28] MEDS ORDERED: Insulin Regular 1 UNITS/0.01 ML ML ONE (16:02)
[2017-12-28] MEDS ORDERED: Insulin Regular 1 UNITS/0.01 ML ML IV ONE (16:15)
[2017-12-28] MEDS ORDERED: Sodium Chloride 0.9% 500 ML IV SCH (18:30)
[2017-12-28 18:39] LABS: CALCIUM 8.1 mg/dL (8.4-10.5)
[2017-12-28] MEDS: Sodium Chloride 0.9% 1,000 ML IV SCH (19:01)
[2017-12-28] MEDS ORDERED: Cefepime 1gm in NS 100ml 1 GM/100 ML BAG IVPB SCH (22:00)
[2017-12-28] MEDS: Insulin Detemir 100 units/ml Vial (Levemir) SC SCH (22:15)
[2017-12-28] MEDS: Insulin Reg-HIGH-Coverage SC SCH (22:30)
--- NOTE | 2017-12-29 03:57 | CP.PCM.PN ---
Subjective - Date & Time of Evaluation Date of Evaluation: 12/29/17 Time of Evaluation: 03:54 - Subjective Subjective: Nurse requests to insert a heparin lock. Also states that her blood pressure is 180/80. She has no complaints. Denies chest pain, sob, head ache , dizziness, weakness, paraesthesia. Medical record was reviewed. This 82 year old woman was admitted with Has PMH of DM, HTN, CAD, coronary stent placement, CKD, GERD , Cholecystomy. Objective - Vital Signs/Intake and Output Vital Signs (last 24 hours): Temp Pulse Resp BP Pulse Ox 98 F 111 H 19 170/80 H 99 12/29/17 00:00 12/29/17 00:00 12/29/17 00:00 12/29/17 00:00 12/29/17 00:00 - Medications Medications: Current Medications Arformoterol Tartrate (Brovana) 15 mcg IH [id number] [facility] Atorvastatin Calcium (Lipitor) 40 mg PO DIN [facility] Budesonide (Pulmicort Respules) 0.25 mg IH [id number] [facility] Clopidogrel Bisulfate (Plavix) 75 mg PO DAILY [facility] Sodium Chloride (Sodium Chloride 0.9%) 1,000 mls @ 60 mls/hr IV .[id number] [facility] Last Admin: 12/28/17 19:01 Dose: 60 mls/hr Ceftaroline Fosamil 200 mg/ (Sodium Chloride) 50 mls @ 50 mls/hr IVPB Q12H [facility]LA PRN Reason: Protocol Stop: 01/04/18 20:01 Last Admin: 12/28/17 20:45 Dose: 50 mls/hr Insulin Detemir (Levemir) 30 unit SC HS [facility] Last Admin: 12/28/17 22:15 Dose: 30 unit Insulin Human Regular (Humulin R High) 0 units SC ACHS [facility] PRN Reason: Protocol Last Admin: 12/28/17 22:30 Dose: Not Given Multivitamins (Thera Tab) 1 tab PO DAILY [facility] - Labs Labs: 12/28/17 18:05 PT 11.9 SECONDS (9.4-12.5) 12/28/17 14:20 INR 1.03 (0.93-1.08) 12/28/17 14:20 APTT 27.0 Seconds (25.1-36.5) 12/28/17 14:20 Most Recent Lab Values WBC 18.0 10^3/ul (4.5-11.0) H D 12/28/17 14:20 RBC 3.66 10^6/uL (3.5-6.1) 12/28/17 14:20 Hgb 11.1 g/dL (12.0-16.0) L 12/28/17 14:20 Hct 33.7 % (36.0-48.0) L 12/28/17 14:20 MCV 92.1 fl (80.0-105.0) 12/28/17 14:20 MCH 30.3 pg (25.0-35.0) 12/28/17 14:20 MCHC 32.9 g/dl (31.0-37.0) 12/28/17 14:20 RDW 13.3 % (11.5-14.5) 12/28/17 14:20 Plt Count 301 10^3/uL (120.0-450.0) 12/28/17 14:20 MPV 9.8 fl (7.0-11.0) 12/28/17 14:20 Gran % 83.2 % (50.0-68.0) H 12/28/17 14:20 Lymph % (Auto) 7.2 % (22.0-35.0) L 12/28/17 14:20 [place] % (Auto) 9.3 % (1.0-6.0) H 12/28/17 14:20 Eos % (Auto) 0.2 % (1.5-5.0) L 12/28/17 14:20 Baso % (Auto) 0.1 % (0.0-3.0) 12/28/17 14:20 Gran # 14.98 (1.4-6.5) H 12/28/17 14:20 Lymph # (Auto) 1.3 (1.2-3.4) 12/28/17 14:20 Emery # (Auto) 1.7 (0.1-0.6) H 12/28/17 14:20 Eos # (Auto) 0.0 (0.0-0.7) 12/28/17 14:20 Baso # (Auto) 0.02 K/mm3 (0.0-2.0) 12/28/17 14:20 ESR 144 mm/hr (0.0-20.0) H 12/28/17 14:20 PT 11.9 SECONDS (9.4-12.5) 12/28/17 14:20 INR 1.03 (0.93-1.08) 12/28/17 14:20 APTT 27.0 Seconds (25.1-36.5) 12/28/17 14:20 pO2 45 mm/Hg (30-55) 12/28/17 14:20 VBG pH 7.29 (7.32-7.43) L 12/28/17 14:20 VBG pCO2 51.0 (40-60) 12/28/17 14:20 VBG HCO3 24.5 mmol/l (21-28) 12/28/17 14:20 VBG Total CO2 26.1 mmol.L (22-28) 12/28/17 14:20 VBG O2 Sat (Calc) 81.5 % (40-65) H 12/28/17 14:20 VBG Base Excess -2.7 mmol/L (0.0-2.0) L 12/28/17 14:20 VBG Potassium 6.2 mmol/L (3.6-5.2) H* 12/28/17 14:20 Sodium 128.0 mmol/L (132-148) L 12/28/17 14:20 Chloride 98.0 mmol/L (98-107) 12/28/17 14:20 Glucose 441 mg/dl (65-105) H* 12/28/17 14:20 Lactate 1.6 mmol/L (0.7-2.1) 12/28/17 14:20 FiO2 21.0 % 12/28/17 14:20 Sodium 134 mmol/L (132-148) 12/28/17 18:05 Potassium 4.9 mmol/L (3.6-5.0) 12/28/17 18:05 Chloride 104 mmol/L (98-107) 12/28/17 18:05 Carbon Dioxide 23 mmol/L (21-33) 12/28/17 18:05 Anion Gap 11 (10-20) 12/28/17 18:05 BUN 31 mg/dL (7-21) H 12/28/17 18:05 Creatinine 1.7 mg/dl (0.7-1.2) H 12/28/17 18:05 Est GFR ( Amer) 35 12/28/17 18:05 Est GFR (Non-Af Amer) 29 12/28/17 18:05 POC Glucose (mg/dL) 186 mg/dL (65-110) H 12/28/17 22:10 Random Glucose 237 mg/dL (70-110) H 12/28/17 18:05 Calcium 8.1 mg/dL (8.4-10.5) L 12/28/17 18:05 Phosphorus 3.6 mg/dL (2.5-4.5) 12/28/17 14:20 Magnesium 1.8 mg/dL (1.7-2.2) 12/28/17 14:20 Total Bilirubin 0.5 mg/dL (0.2-1.3) 12/28/17 14:20 AST 54 U/L (14-36) H 12/28/17 14:20 ALT 65 U/L (7-56) H 12/28/17 14:20 Alkaline Phosphatase 195 U/L (38-126) H 12/28/17 14:20 Troponin I < 0.01 ng/mL 12/28/17 14:20 NT-Pro-B Natriuret Pep 2090 pg/mL (0-450) H 12/28/17 14:20 Total Protein 7.3 g/dL (5.8-8.3) 12/28/17 14:20 Albumin 3.3 g/dL (3.0-4.8) 12/28/17 14:20 Globulin 4.0 gm/dL 12/28/17 14:20 Albumin/Globulin Ratio 0.8 (1.1-1.8) L 12/28/17 14:20 Procalcitonin 2.46 NG/ML (0.19-0.49) H 12/28/17 14:20 Venous Blood Potassium 6.2 mmol/L (3.6-5.2) H* 12/28/17 14:20 Urine Color Yellow (YELLOW) 12/28/17 13:45 Urine Appearance Clear (CLEAR) 12/28/17 13:45 Urine pH 6.5 (4.7-8.0) 12/28/17 13:45 Ur Specific [place] 1.020 (1.005-1.035) 12/28/17 13:45 Urine Protein 100 mg/dL (<30 mg/dL) H 12/28/17 13:45 Urine Glucose (UA) 500 mg/dL (NEGATIVE) H 12/28/17 13:45 Urine Ketones Negative mg/dL (NEGATIVE) 12/28/17 13:45 Urine Blood Small (NEGATIVE) H 12/28/17 13:45 Urine Nitrate Negative (NEGATIVE) 12/28/17 13:45 Urine Bilirubin Negative (NEGATIVE) 12/28/17 13:45 Urine Urobilinogen 0.2 E.U./dL (<1 E.U./dL) 12/28/17 13:45 Ur Leukocyte Esterase Small [place]/uL (NEGATIVE) H 12/28/17 13:45 Urine RBC 1 - 3 /hpf (0-2) 12/28/17 13:45 Urine WBC 25 - 30 /hpf (0-6) 12/28/17 13:45 Ur Epithelial Cells 1 - 3 /hpf (0-5) 12/28/17 13:45 Urine Bacteria Many (NEG) 12/28/17 13:45 - Constitutional Appears: Well, No Acute Distress - Head Exam Head Exam: ATRAUMATIC, NORMAL INSPECTION, NORMOCEPHALIC - Eye Exam Additional comments: Right eye blindness. - ENT Exam ENT Exam: Normal External Ear Exam - Neck Exam Neck Exam: Normal Inspection - Respiratory Exam Respiratory Exam: NORMAL BREATHING PATTERN - Cardiovascular Exam Cardiovascular Exam: absent: JVD - GI/Abdominal Exam GI & Abdominal Exam: absent: Distended - Rectal Exam Rectal Exam: Deferred - Exam Additional comments: Deferred. - Extremities Exam Extremities Exam: Normal Inspection - Back Exam Back Exam: NORMAL INSPECTION - Neurological Exam Neurological Exam: Alert, Oriented x3 - Psychiatric Exam Psychiatric exam: Normal Affect, Normal Mood - Skin Skin Exam: Normal Color Assessment and Plan - Assessment and Plan (Free Text) Assessment: Elevated blood pressure reading. Poor venous access. HTN. CAD. CKD. GERD. Plan: Clonidine 0.1 mg PO now . # 24 angiocath was inserted in left hand dorsum.
[2017-12-29 07:12] LABS: HEMOGLOBIN 9.7 g/dL (12.0-16.0); MEAN CORPUSCULAR HEMOGLOBIN 29.1 pg (25.0-35.0); MEAN PLATELET VOLUME 9.5 fl (7.0-11.0); RBC 3.33 10^6/uL (3.5-6.1); RED CELL DISTRIBUTION WIDTH 13.3 % (11.5-14.5); WHITE BLOOD COUNT 12.1 10^3/ul (4.5-11.0)
[2017-12-29 07:26] LABS: ALB/GLOB RATIO 0.8 (1.1-1.8); ALBUMIN 2.7 g/dL (3.0-4.8); CALCIUM 8.4 mg/dL (8.4-10.5)
[2017-12-29] MEDS: Budesonide 0.25 mg/2 ml Inhal Susp UD IH SCH ×2 (08:19→22:20)
[2017-12-29] MEDS: Arformoterol 15 mcg/2 ml Inh Sol IH SCH ×2 (08:19→22:20)
[2017-12-29] MEDS ORDERED: Benzocaine/Menthol (Cepacol) Lozenge MT PRN (08:33)
[2017-12-29] MEDS: Insulin Reg-HIGH-Coverage SC SCH ×4 (08:42→21:59)
[2017-12-29] MEDS: Multivitamin Therapeutic Tab PO SCH (10:21)
[2017-12-29] MEDS: Sodium Chloride 0.9% 1,000 ML IV SCH (13:06)
[2017-12-29 13:22] LABS: CREATININE,RANDOM URINE 54 mg/dL; TOTAL PROTEIN,RANDOM URINE 184 mg/L
--- NOTE | 2017-12-29 14:44 | CP.PCM.CON ---
History of Present Illness - History of Present Illness History of Present Illness: Initial Nephrology Consultation: Assessment: Stable UTI Acute Kidney Injury (N17.9): resolved Hyponatremia and Hyperkalemia due to hyperglycemia with uncontrolled DM Diabetic chronic Kidney Disease (E11.22) Hypertensive Chronic Kidney Disease (I12.9) Chronic Kidney Disease (N18.3) Stage 3 with 1.3gm proteinuria (R80.9) likely due to DM, HTN Anemia (D64.9), HTN (I12.9) Plan No acute need for renal replacement therapy at this time. Hypertension control with meds as ordered. Patient not on ACEI/ARB due to MELECIO. will consider once stable renal function Monitor Input/Output, daily weights and renal function with basic metabolic panel will add iron supplements and MVI Check urine analysis, spot protein/creatinine and albumin/creatinine ratio Check for 25-OH vitamin D, iPTH, phosphorus level Check iron studies Dose meds/antibiotics for reduced GFR. Avoid fleets enema/magnesium based laxatives. Avoid nephrotoxins/NSAIDs/ iodinated contrast (unless needed emergently) Glycemic control Further work up/management as per primary team Thanks for allowing me to participate in care of your patient. Will follow patient with you. Please call if any Qs. d/w team and son Dr Robby Jean-Baptiste Office: [phone] Chief Complaint; UTI reason for consult: MELECIO and CKD HPI: Pt is a 82 F with hx of diabetes Mellitus (20-30 years), hypertension (20- 30 years), CKD stage 3 (with baseline cr 1.4-1.7), CAD, anemia presented with complaints of fever and urinary tract infections symptoms off and on for last 1 week. she is being managed in hospital for UTI. also with hperglycemia, MELECIO, hyperkalemia initially on presentation hence consult for renal she feels better at this time Denies OTC/herbal meds or NSAIDs No recent iodinated contrast exposure. No obvious episodes of low BP. ROS: Cardiovascular: No chest pain. Pulmonary: No shortness of breath Gastrointestinal: denies abdominal pain No nausea. No vomiting. Genitourinary: No pain while urinating. Denies blood in urine. All other negative Physical Examination: General Appearance: Comfortable, in no acute respiratory distress, co-operative . Vitals reviewed and noted as below Head; Atraumatic, normocephalic ENT: no ulcers no thrush. Tongue is midline. Oropharynx: no rash or ulcers. LEft EYE: Pupils are round and reactive to light accommodation. Eye muscles and extraocular movement intact. Sclera is anicteric. 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 Breath sounds bilateral equal and clear Heart: Normal rate. s1s2 normal. No rub or gallop. Extremities: no edema. No varicose veins Neurological: Patient is alert, awake and oriented to person, place and time. No focal deficit. Strength bilateral appropriate and equal Skin: Warm and dry. Normal turgor. No rash. Palpitation: Normal elasticity for age Abdomen: Abdomen is soft. Bowel sounds +. There is no abdominal tenderness, no guarding/rigidity no organomegaly Psych: limited insight and normal affect/mood MSK: no joint tenderness or swelling. Digits and nails normal, no deformity : kidney or bladder not palpable Labs/imaging reviewed. Past medical history, past surgical history, family history, social history, allergy reviewed and noted as below Family hx: no hx of CKD. Rest non-contributory past work up: C3/C4/MARYBETH/Hep B and C neg. UA 100 protein with glucose no ketones 1.3 gram proteinuria in past renal imaging: possible renal cyst left side echo normal LVEF Past Patient History - Infectious Disease Hx of Infectious Diseases: None - Past Medical History & Family History Past Medical History?: Yes - Past Social History Smoking Status: Never Smoked - CARDIAC Hx Cardiac Disorders: (CAD, [place], Angioplasty) - PULMONARY Hx Respiratory Disorders: No - NEUROLOGICAL Hx Neurological Disorder: Yes (PHERIPHERAL NEUROPATHY) - HEENT Hx HEENT Problems: Yes Hx Blind: Yes (RIGHT EYE-INJURY) - RENAL Hx Chronic Kidney Disease: No - ENDOCRINE/METABOLIC Hx Diabetes Mellitus Type 2: Yes - HEMATOLOGICAL/ONCOLOGICAL Hx Blood Disorders: No - INTEGUMENTARY Hx Dermatological Problems: No - MUSCULOSKELETAL/RHEUMATOLOGICAL Hx Falls: Yes - GASTROINTESTINAL Hx Gastrointestinal Disorders: Yes (POST LAP CONRAD 2-3-17,ACUTE CHOLEYCYSTITIS, GERD) - GENITOURINARY/GYNECOLOGICAL Hx Genitourinary Disorders: No - PSYCHIATRIC Hx Emotional Abuse: No Hx Physical Abuse: No - SURGICAL HISTORY Hx Cardiac Catheterization: Yes Hx Coronary Stent: Yes (X1) Hx Orthopedic Surgery: Yes Other/Comment: R eye surgery - ANESTHESIA Hx Anesthesia: Yes Hx Anesthesia Reactions: No Hx Malignant Hyperthermia: No Meds Allergies/Adverse Reactions: Allergies Allergy/AdvReac Type Severity Reaction Status Date / Time Iodinated Contrast- Oral and Allergy NAUSEA Verified 12/28/17 13:32 IV Dye - Medications Medications: Current Medications Arformoterol Tartrate (Brovana) 15 mcg IH [id number] [facility] Last Admin: 12/29/17 08:19 Dose: 15 mcg Aspirin (Ecotrin) 81 mg PO DAILY [facility] Last Admin: 12/29/17 11:46 Dose: 81 mg Atorvastatin Calcium (Lipitor) 40 mg PO DIN [facility] Benzocaine/Menthol (Cepacol Sore Throat) 1 shant MT Q2H PRN PRN Reason: Sore Throat Budesonide (Pulmicort Respules) 0.25 mg IH [id number] [facility] Last Admin: 12/29/17 08:19 Dose: 0.25 mg Clopidogrel Bisulfate (Plavix) 75 mg PO DAILY [facility] Last Admin: 12/29/17 10:22 Dose: 75 mg Ferrous Gluconate (Fergon) 324 mg PO TID [facility] Last Admin: 12/29/17 13:38 Dose: 324 mg Sodium Chloride (Sodium Chloride 0.9%) 1,000 mls @ 60 mls/hr IV .[id number] [facility] Last Admin: 12/29/17 13:06 Dose: 60 mls/hr Ceftaroline Fosamil 200 mg/ (Sodium Chloride) 50 mls @ 50 mls/hr IVPB Q12H [facility] PRN Reason: Protocol Stop: 01/04/18 20:01 Last Admin: 12/29/17 08:42 Dose: 50 mls/hr Insulin Detemir (Levemir) 30 unit SC HS [facility] Last Admin: 12/28/17 22:15 Dose: 30 unit Insulin Human Regular (Humulin R High) 0 units SC ACHS [facility] PRN Reason: Protocol Last Admin: 12/29/17 12:36 Dose: 4 units Multivitamins (Thera Tab) 1 tab PO DAILY [facility] Last Admin: 12/29/17 10:21 Dose: 1 tab Sitagliptin Phosphate (Januvia) 25 mg PO DAILY [facility] Vitamin B Complex/Vit C/Folic Acid (Nephro-Ning) 1 tab PO 0800 [facility] Results - Vital Signs Recent Vital Signs: Last Vital Signs Temp 98.3 F 12/29/17 11:30 Pulse 92 H 12/29/17 14:16 Resp 20 12/29/17 11:30 BP 158/79 H 12/29/17 11:30 Pulse Ox 94 L 12/29/17 04:00 - Labs Result Diagrams: 12/29/17 06:30 12/29/17 06:30 Labs: Laboratory Results - last 24 hr 12/28/17 12/28/17 12/28/17 18:05 20:00 22:10 WBC RBC Hgb Hct MCV MCH MCHC RDW Plt Count MPV Sodium 134 Potassium 4.9 Chloride 104 Carbon Dioxide 23 Anion Gap 11 BUN 31 H Creatinine 1.7 H Est GFR ( Amer) 35 Est GFR (Non-Af Amer) 29 POC Glucose (mg/dL) 186 H Random Glucose 237 H Calcium 8.1 L Phosphorus Iron TIBC % Saturation Total Bilirubin AST ALT Alkaline Phosphatase C-Reactive Protein 124.00 H Total Protein Albumin Globulin Albumin/Globulin Ratio Ur Random Creatinine U Random Total Protein 12/29/17 12/29/17 12/29/17 06:30 06:30 06:30 WBC 12.1 H D RBC 3.33 L Hgb 9.7 L Hct 30.3 L MCV 91.0 MCH 29.1 MCHC 32.0 RDW 13.3 Plt Count 291 MPV 9.5 Sodium 138 Potassium 5.1 H Chloride 107 Carbon Dioxide 25 Anion Gap 11 BUN 28 H Creatinine 1.7 H Est GFR ( Amer) 35 Est GFR (Non-Af Amer) 29 POC Glucose (mg/dL) Random Glucose 266 H Calcium 8.4 Phosphorus 3.7 Iron TIBC % Saturation Total Bilirubin 0.2 AST 37 H D ALT 53 Alkaline Phosphatase 131 H D C-Reactive Protein Total Protein 6.3 Albumin 2.7 L Globulin 3.6 Albumin/Globulin Ratio 0.8 L Ur Random Creatinine U Random Total Protein 12/29/17 12/29/17 12/29/17 07:31 10:22 10:45 WBC RBC Hgb Hct MCV MCH MCHC RDW Plt Count MPV Sodium Potassium Chloride Carbon Dioxide Anion Gap BUN Creatinine Est GFR ( Amer) Est GFR (Non-Af Amer) POC Glucose (mg/dL) 220 H Random Glucose Calcium Phosphorus Iron 22 L TIBC 207 L % Saturation 11 L Total Bilirubin AST ALT Alkaline Phosphatase C-Reactive Protein Total Protein Albumin Globulin Albumin/Globulin Ratio Ur Random Creatinine 54 U Random Total Protein 184 12/29/17 11:20 WBC RBC Hgb Hct MCV MCH MCHC RDW Plt Count MPV Sodium Potassium Chloride Carbon Dioxide Anion Gap BUN Creatinine Est GFR ( Amer) Est GFR (Non-Af Amer) POC Glucose (mg/dL) 236 H Random Glucose Calcium Phosphorus Iron TIBC % Saturation Total Bilirubin AST ALT Alkaline Phosphatase C-Reactive Protein Total Protein Albumin Globulin Albumin/Globulin Ratio Ur Random Creatinine U Random Total Protein
[2017-12-29 16:33] LABS: FOLATE > 20.0 ng/mL
--- NOTE | 2017-12-29 17:42 | CP.PCM.CON ---
History of Present Illness - History of Present Illness History of Present Illness: 82 year old female with PMH of HTN, CAD S/P PCI, DM, GERD, history of Severe sepsis secondary to E. coli bacteremia, probably from pyelonephritis, history of acute acalculous cholecystitis S/P laparoscopic cholecystectomy (OR 11/02/2016 ) came in to [facility] because of fever and chills for about 3-4 days now, associated with weakness. The patient also feels weak and has some pain on swallowing. She denies headache or dizziness, no rhinorrhea, no cough or SOB, no chest pain, no abdominal pain, no diarrhea, no has some urinary frequency. Urinalysis is showing pyuria and Infectious Diseases consult is requested to further evaluate and manage. Review of Systems - Review of Systems All systems: reviewed and no additional remarkable complaints except (as per HPI ) Past Patient History - Infectious Disease Hx of Infectious Diseases: None - Past Medical History & Family History Past Medical History?: Yes - Past Social History Smoking Status: Never Smoked - CARDIAC Hx Cardiac Disorders: (CAD, [place], Angioplasty) - PULMONARY Hx Respiratory Disorders: No - NEUROLOGICAL Hx Neurological Disorder: Yes (PHERIPHERAL NEUROPATHY) - HEENT Hx HEENT Problems: Yes Hx Blind: Yes (RIGHT EYE-INJURY) - RENAL Hx Chronic Kidney Disease: No - ENDOCRINE/METABOLIC Hx Diabetes Mellitus Type 2: Yes - HEMATOLOGICAL/ONCOLOGICAL Hx Blood Disorders: No - INTEGUMENTARY Hx Dermatological Problems: No - MUSCULOSKELETAL/RHEUMATOLOGICAL Hx Falls: Yes - GASTROINTESTINAL Hx Gastrointestinal Disorders: Yes (POST LAP CONRAD 2-3-17,ACUTE CHOLEYCYSTITIS, GERD) - GENITOURINARY/GYNECOLOGICAL Hx Genitourinary Disorders: No - PSYCHIATRIC Hx Emotional Abuse: No Hx Physical Abuse: No - SURGICAL HISTORY Hx Cardiac Catheterization: Yes Hx Coronary Stent: Yes (X1) Hx Orthopedic Surgery: Yes Other/Comment: R eye surgery - ANESTHESIA Hx Anesthesia: Yes Hx Anesthesia Reactions: No Hx Malignant Hyperthermia: No Meds Allergies/Adverse Reactions: Allergies Allergy/AdvReac Type Severity Reaction Status Date / Time Iodinated Contrast- Oral and Allergy NAUSEA Verified 12/28/17 13:32 IV Dye - Medications Medications: Current Medications Arformoterol Tartrate (Brovana) 15 mcg IH [id number] [facility] Atorvastatin Calcium (Lipitor) 40 mg PO DIN [facility] Budesonide (Pulmicort Respules) 0.25 mg IH [id number] [facility] Clopidogrel Bisulfate (Plavix) 75 mg PO DAILY [facility] Sodium Chloride (Sodium Chloride 0.9%) 1,000 mls @ 60 mls/hr IV .[id number] [facility] Last Admin: 12/28/17 19:01 Dose: 60 mls/hr Ceftaroline Fosamil 200 mg/ (Sodium Chloride) 50 mls @ 50 mls/hr IVPB Q12H [facility] PRN Reason: Protocol Stop: 01/04/18 20:01 Last Admin: 12/28/17 20:45 Dose: 50 mls/hr Insulin Detemir (Levemir) 30 unit SC HS [facility] Last Admin: 12/28/17 22:15 Dose: 30 unit Insulin Human Regular (Humulin R High) 0 units SC ACHS [facility] PRN Reason: Protocol Last Admin: 12/28/17 22:30 Dose: Not Given Multivitamins (Thera Tab) 1 tab PO DAILY [facility] Physical Exam - Constitutional Appears: Non-toxic, Chronically Ill - Head Exam Head Exam: NORMAL INSPECTION - ENT Exam Additional comments: oral thrush noted - Neck Exam Neck exam: Positive for: Lymphadenopathy. Negative for: Meningismus - Respiratory Exam Respiratory Exam: Decreased Breath Sounds - Cardiovascular Exam Cardiovascular Exam: +S1, +S2 - GI/Abdominal Exam GI & Abdominal Exam: Soft. absent: Tenderness Results - Vital Signs Recent Vital Signs: Last Vital Signs Temp 98 F 12/29/17 00:00 Pulse 110 H 12/29/17 04:32 Resp 19 12/29/17 00:00 BP 170/80 H 12/29/17 04:32 Pulse Ox 99 12/29/17 00:00 - Labs Result Diagrams: 12/29/17 06:30 12/29/17 06:30 Labs: Laboratory Results - last 24 hr 12/28/17 12/28/17 18:05 22:10 Sodium 134 Potassium 4.9 Chloride 104 Carbon Dioxide 23 Anion Gap 11 BUN 31 H Creatinine 1.7 H Est GFR ( Amer) 35 Est GFR (Non-Af Amer) 29 POC Glucose (mg/dL) 186 H Random Glucose 237 H Calcium 8.1 L Assessment & Plan - Assessment and Plan (Free Text) Plan: Assessment consider sepsis from UTI with gram positive cocci and gram negative bacilli oral candidiasis history of severe sepsis secondary to E. coli bacteremia, probably from pyelonephritis history of acute acalculous cholecystitis S/P laparoscopic cholecystectomy (OR ) HTN CAD S/P PCI DM GERD Plan started patient on Teflaro and Diflucan and will follow up identification and sensitivities of the gram negative bacilli and gram positive cocci in the urine Will monitor clinically
[2017-12-29] MEDS ORDERED: Fluconazole IV 200mg/100 ml NS 100 ML IVPB ONE (18:30)
[2017-12-29] MEDS: Fluconazole IV 200mg/100 ml NS 100 MG in Premixed IV 1 EA IVPB SCH (18:31)
--- NOTE | 2017-12-29 19:14 | CON ---
DATE: 12/29/2017 CARDIOLOGY CONSULTATION HISTORY OF PRESENT ILLNESS: The patient is an 82-year-old woman who presents with fever. The patient's past medical history includes diabetes mellitus, hypertension, and hypercholesterolemia. She is status post PTCA and stent of an LAD in 10/2016 as well as a cholecystectomy in the past. She denies chest pain, denies shortness of breath. SOCIAL HISTORY: The patient does not smoke. REVIEW OF SYSTEMS: A 14-point review of systems is reviewed in detail. No cardiac symptoms are noted. PHYSICAL EXAMINATION: VITAL SIGNS: Blood pressure varies from 140 to 170 systolic, heart rate is 110, sinus tachycardia. NECK: Negative JVD. LUNGS: Without rales. HEART: With S1, S2. EXTREMITIES: Without edema. EKG shows normal sinus rhythm with no acute changes. LABORATORY DATA: BUN and creatinine are 28 and 1.7. Glucose is 266. White count is 12.1, hemoglobin is 9.7. IMPRESSION: 1. Fever. 2. Stable angina. 3. Coronary artery disease. 4. Diabetes mellitus. 5. Renal insufficiency. 6. Hypertension. 7. Hypercholesterolemia. 8. History of cholecystectomy. 9. History of percutaneous transluminal coronary angioplasty and stent of a left anterior descending 1 year ago. PLAN: Given these findings, we will continue the patient on her aspirin and Plavix. At some point, when her febrile illness is resolved, we will arrange for an outpatient stress test. Jatinder Muñoz MD
--- NOTE | 2017-12-29 19:27 | HP ---
HISTORY OF PRESENT ILLNESS: I saw her in the hospital bed this morning. She came in yesterday with abnormal skin integrity on her abdomen. She was treated in the outpatient with Keflex 500 every 6 hours and she had temperatures and rigors, fever of 100.2 and also chills and rigors. She is an 82-year-old [place]ian female, who comes in with an abdominal abscess soft tissue with outpatient treatment of Keflex, but had 100.2 temp and fever and rigors and came to the emergency room. PAST MEDICAL HISTORY: She has a past medical history of renal insufficiency, pyelonephritis, hypertension, insulin-dependent diabetes, CAD with coronary stent, right-sided soft tissue abscess, cholecystectomy, CAD, [place], angioplasty in the past. She has peripheral neuropathy. 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 Diabetes. She has falls. She had a lap jayashree, acute cholecystitis and gastroesophageal reflux disease, coronary stent x1, orthopedic surgery. She had right eye surgery. FAMILY HISTORY: No known family history. SOCIAL HISTORY: Never smoked. No alcohol. No drugs. ALLERGIES: SHE IS ALLERGIC TO IODINATED CONTRAST, ORAL AND IV DYES MEDICATIONS: She is on Pulmicort, Glucophage. REVIEW OF SYSTEMS: She has got rigors and chills and fever. Eyes: No change. Throat: No change. No shortness of breath or cough. No chest pain or palpitations. Not hungry, but no abdominal pain, nausea, vomiting, constipation, diarrhea. No problems urinating. There is a headache. No anxiety or depression. PHYSICAL EXAMINATION: VITAL SIGNS: She has a 99 temp, 106 pulse, 98 respiratory rate, 152/70 blood pressure, 100% O2 sat. GENERAL: She is well appearing. Appearing smiling, nontoxic at this time on IV fluids and on IV antibiotics. She is alert and oriented x3. HEENT: Extraocular muscles are intact. Normocephalic, atraumatic is the head. Pupils equal, reactive to light. 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 Throat is also red and inflamed. LUNGS: Clear to auscultation with decreased breath sounds. HEART: Regular rate. Normal S1 and S2. ABDOMEN: Soft, nontender. Positive bowel sounds. Mild tenderness, but no guarding or rebound. She has an abdominal abscess that is healing. NEUROLOGIC: Alert and oriented x3. LYMPHATICS: Thyroid midline. No palpable lymphadenopathy. LABORATORY DATA: She had multiple tests. She has an 18,000 white count, it came down to 12.1 so far with the antibiotics; 9.7 hemoglobin, down from 11.1; 30.3 hematocrit with 291 platelets. She had a 441 sugar. She has a 138 sodium. It is better than 129 when she came in. The potassium is down from 5.9 to 5.1. Her BUN is 28. It came down from 34 and the creatinine is down to 1.7 from 2, GFR is 29. Last blood sugar was 266, which I blood sugars. She cannot take the metformin because of the kidney function, but I will put her on Januvia. Calcium is 8.4, total bili is 0.2, AST is 37, ALT is 53, alk phos is 131, all improved. Albumin is 6.3. Urine with many bacteria. IMPRESSION: She is having a urinary tract infection, sepsis stricture, hypertension, diabetes, acute kidney injury. Chest x-ray with no acute disease. CAT scan of the head was okay. She is going to have a consult with Infectious Disease for IV antibiotics, Cardiology for coronary artery disease and Renal for insufficiency. She is on Brovana, ceftaroline, insulin, Levemir, Lipitor, Plavix, budesonide, intravenous fluids and Thera-Tabs and Januvia was added. Hopefully, she will continue to improve. We will get her out of bed to chair, physical therapy. We will check her labs tomorrow. Continue with aggressive treatment and care on the patient, Yumiko Jarquin. Jonah Ward DO [facility]
--- NOTE | 2017-12-29 19:44 | CARD ---
APPROVED REPORT EKG Measurement Heart [id number] <Conclusion> Sinus tachycardia Cannot rule out Anterior infarct, age undetermined Abnormal ECG
[2017-12-29] MEDS: Insulin Detemir 100 units/ml Vial (Levemir) SC SCH (22:23)
[2017-12-30] MEDS: Budesonide 0.25 mg/2 ml Inhal Susp UD IH SCH ×3 (00:10→19:49)
[2017-12-30] MEDS: Arformoterol 15 mcg/2 ml Inh Sol IH SCH ×3 (00:10→19:49)
[2017-12-30] MEDS: Sodium Chloride 0.9% 1,000 ML IV SCH (06:05)
[2017-12-30 06:51] LABS: HEMOGLOBIN 10.1 g/dL (12.0-16.0); MEAN CELL VOLUME 91.1 fl (80.0-105.0); MEAN CORPUSCULAR HEMOGLOBIN 29.9 pg (25.0-35.0); MEAN CORPUSCULAR HGB CONC 32.8 g/dl (31.0-37.0); MEAN PLATELET VOLUME 9.1 fl (7.0-11.0); RBC 3.38 10^6/uL (3.5-6.1); RED CELL DISTRIBUTION WIDTH 13.4 % (11.5-14.5); WHITE BLOOD COUNT 8.9 10^3/ul (4.5-11.0)
[2017-12-30 07:21] LABS: ALB/GLOB RATIO 0.7 (1.1-1.8); ALBUMIN 2.7 g/dL (3.0-4.8); CALCIUM 8.4 mg/dL (8.4-10.5)
[2017-12-30] MEDS ORDERED: Multivitamin Vitamin B Complex (Nephro-Vite) Tab PO SCH (08:00)
[2017-12-30] MEDS: Insulin Reg-HIGH-Coverage SC SCH ×4 (08:44→21:51)
[2017-12-30] MEDS: Multivitamin Therapeutic Tab PO SCH (09:08)
[2017-12-30] MEDS ORDERED: Ergocalciferol 50,000 Intl Units Cap PO SCH (10:30)
[2017-12-30] MEDS: Fluconazole IV 200mg/100 ml NS 100 MG in Premixed IV 1 EA IVPB SCH (11:47)
--- NOTE | 2017-12-30 12:30 | CP.PCM.PN ---
Subjective - Date & Time of Evaluation Date of Evaluation: 12/30/17 Time of Evaluation: 10:50 - Subjective Subjective: Patient is starting to feel better, no fevers, not in distress. Sore throat is also starting to improve. Objective - Vital Signs/Intake and Output Vital Signs (last 24 hours): Temp Pulse Resp BP Pulse Ox 97.8 F 92 H 19 175/87 H 95 12/30/17 06:00 12/30/17 06:00 12/30/17 06:00 12/30/17 06:05 12/30/17 06:00 Intake and Output: 12/30/17 12/30/17 06:59 18:59 Intake Total 1730 Output Total 600 Balance 1130 - Medications Medications: Current Medications Arformoterol Tartrate (Brovana) 15 mcg IH [id number] [facility] Last Admin: 12/30/17 07:44 Dose: 15 mcg Aspirin (Ecotrin) 81 mg PO DAILY [facility] Last Admin: 12/29/17 11:46 Dose: 81 mg Atorvastatin Calcium (Lipitor) 40 mg PO DIN [facility] Last Admin: 12/29/17 17:04 Dose: 40 mg Benzocaine/Menthol (Cepacol Sore Throat) 1 shant MT Q2H PRN PRN Reason: Sore Throat Budesonide (Pulmicort Respules) 0.25 mg IH [id number] [facility] Last Admin: 12/30/17 07:44 Dose: 0.25 mg Clopidogrel Bisulfate (Plavix) 75 mg PO DAILY [facility] Last Admin: 12/29/17 10:22 Dose: 75 mg Ferrous Gluconate (Fergon) 324 mg PO TID [facility] Last Admin: 12/29/17 17:04 Dose: 324 mg Hydralazine HCl (Apresoline) 25 mg PO Q4 PRN PRN Reason: Other Last Admin: 12/30/17 06:05 Dose: 25 mg Sodium Chloride (Sodium Chloride 0.9%) 1,000 mls @ 60 mls/hr IV .[id number] [facility] Last Admin: 12/30/17 06:05 Dose: 60 mls/hr Ceftaroline Fosamil 200 mg/ (Sodium Chloride) 50 mls @ 50 mls/hr IVPB Q12H [facility] PRN Reason: Protocol Stop: 01/04/18 20:01 Last Admin: 12/29/17 21:57 Dose: 50 mls/hr Fluconazole 100 mg/ (Miscellaneous) 50 mls @ 100 mls/hr IVPB DAILY [facility] PRN Reason: Protocol Last Admin: 12/29/17 18:31 Dose: 100 mls/hr Insulin Detemir (Levemir) 30 unit SC HS [facility] Last Admin: 12/29/17 22:23 Dose: 30 unit Insulin Human Regular (Humulin R High) 0 units SC ACHS [facility] PRN Reason: Protocol Last Admin: 12/29/17 21:59 Dose: Not Given Multivitamins (Thera Tab) 1 tab PO DAILY [facility] Last Admin: 12/29/17 10:21 Dose: 1 tab Sitagliptin Phosphate (Januvia) 25 mg PO DAILY [facility] - Labs Labs: 12/30/17 06:15 12/30/17 06:15 PT 11.9 SECONDS (9.4-12.5) 12/28/17 14:20 INR 1.03 (0.93-1.08) 12/28/17 14:20 APTT 27.0 Seconds (25.1-36.5) 12/28/17 14:20 - Constitutional Appears: Non-toxic, Chronically Ill - Head Exam Head Exam: NORMAL INSPECTION - ENT Exam Additional comments: white plaques on the pahryngeal area have improved - Neck Exam Neck Exam: absent: Meningismus - Respiratory Exam Respiratory Exam: Decreased Breath Sounds - Cardiovascular Exam Cardiovascular Exam: +S1, +S2 - GI/Abdominal Exam GI & Abdominal Exam: Soft. absent: Tenderness Assessment and Plan - Assessment and Plan (Free Text) Plan: Assessment consider sepsis from UTI with Klebsiella oral candidiasis, clinically improving history of severe sepsis secondary to E. coli bacteremia, probably from pyelonephritis history of acute acalculous cholecystitis S/P laparoscopic cholecystectomy (OR ) HTN CAD S/P PCI DM GERD Plan will switch Teflaro to Rocephin (day 2) - may switch to PO antibiotics when ready for discharge (to complete up to 10 days of therapy) will continue Diflucan to complete 7 days of therapy (can switch to PO when ready for discharge) Will continue to monitor clinically
--- NOTE | 2017-12-30 13:22 | PN ---
DATE: SUBJECTIVE: I saw her sitting up in bed. She is doing better each day. She is comfortable. No pains or shortness of breath. No chest pains or abdominal pain. She is eating and going to the bathroom well. PHYSICAL EXAMINATION: VITAL SIGNS: Temperature 97.8; pulse 92; blood pressure has been up and down, 169/95 and 175/87. She has some p.r.n. medicines. We will put her on Norvasc 5 daily starting today. Respiratory rate 19 and O2 sat 95% on room air. HEENT: Head is atraumatic, normocephalic. Right eye blind. Throat is moist. NECK: Supple. HEART: Regular rate. LUNGS: Decreased breath sounds but clear. ABDOMEN: Soft, nontender. Positive bowel sounds. No guarding or CVA tenderness. EXTREMITIES: No edema. MEDICATIONS: She is on Apresoline which is p.r.n., Brovana, ceftaroline IV, Cepacol, Ecotrin, iron, fluconazole, insulin, Januvia, Levemir, Lipitor, Plavix, Pulmicort, IV fluids, vitamins, and I added Norvasc 5 mg daily. LABORATORY DATA: She has 139 sodium, potassium 4.4, BUN is 26, and creatinine 1.5, getting better. When she came in, it was 31 and 1.7, is down to 26 and 1.5 IV fluids. Last blood sugar was 104. Calcium is 8.4. Total bilirubin is 0.2, AST is 32, ALT is 48, alkaline phosphatase 122, total protein 6.4. White count is 8.9, the best it has been; 10.1 hemoglobin; 30.8 hematocrit with 332 platelets. She is improving. She is being seen by Infectious Disease, Renal, and Cardiology. Overall, I think she is getting better. I am hoping to possibly get her out tomorrow. If she continues to improve urinary tract infection, possible sepsis, oral candidiasis, hypertension, diabetes, and gastroesophageal reflux disease. Continue aggressive treatment and care. Jonah Ward DO [facility]
[2017-12-30] MEDS: cefTRIAXone 1 gm 1 GM/100 ML BAG IVPB SCH (14:45)
--- NOTE | 2017-12-30 15:31 | PN ---
DATE: 12/30/2017 CARDIOLOGY FOLLOWUP SUBJECTIVE: The patient has generally been feeling much better. No chest pain. No shortness of breath. PHYSICAL EXAMINATION: VITAL SIGNS: The patient is afebrile. Blood pressure is 164/85, heart rate is in the 90s. NECK: Negative JVD. LUNGS: Without rales. HEART: S1, S2. EXTREMITIES: Without edema. LABORATORY DATA: Hemoglobin is 10.1, white count is down to 8.9. Chemistries: BUN and creatinine is 26 and 1.5, glucose is 318. IMPRESSION: 1. Febrile illness. 2. Stable angina. 3. Coronary artery disease. 4. History of cholecystectomy. 5. Diabetes mellitus. 6. Hypertension. 7. Renal insufficiency. Given these findings, the patient is doing well. We will arrange for an outpatient stress test in 1 to 2 weeks once her febrile illness has definitively resolved. The patient can stop the Plavix, if the stress test is okay. Jatinder Muñoz MD
--- NOTE | 2017-12-30 16:33 | CP.PCM.PN ---
Subjective - Date & Time of Evaluation Date of Evaluation: 12/30/17 Time of Evaluation: 16:32 - Subjective Subjective: Nephrology Consultation: Assessment: Stable UTI Acute Kidney Injury (N17.9): resolved Hyponatremia and Hyperkalemia due to hyperglycemia with uncontrolled DM Diabetic chronic Kidney Disease (E11.22) Hypertensive Chronic Kidney Disease (I12.9) Chronic Kidney Disease (N18.3) Stage 3 with 1.3gm proteinuria (R80.9) likely due to DM, HTN Anemia (D64.9), HTN (I12.9) Plan No acute need for renal replacement therapy at this time. Hypertension control with meds as ordered. Patient not on ACEI/ARB henec started losartan 50 mg/day Monitor Input/Output, daily weights and renal function with basic metabolic panel will add iron supplements and MVI, weekly vit D Check urine analysis, spot protein/creatinine and albumin/creatinine ratio Check for 25-OH vitamin D, iPTH, phosphorus level Check iron studies Dose meds/antibiotics for reduced GFR. Avoid fleets enema/magnesium based laxatives. Avoid nephrotoxins/NSAIDs/ iodinated contrast (unless needed emergently) Glycemic control Further work up/management as per primary team Thanks for allowing me to participate in care of your patient. Will follow patient with you. Please call if any Qs. d/w team and son Robby Jean-Baptiste Office: [phone] reason for consult: MELECIO and CKD HPI: Pt is a 82 F with hx of diabetes Mellitus (20-30 years), hypertension (20- 30 years), CKD stage 3 (with baseline cr 1.4-1.7), CAD, anemia presented with complaints of fever and urinary tract infections symptoms off and on for last 1 week. she is being managed in hospital for UTI. also with hperglycemia, MELECIO, hyperkalemia initially on presentation hence consult for renal she feels better at this time Denies OTC/herbal meds or NSAIDs No recent iodinated contrast exposure. No obvious episodes of low BP. ROS: Cardiovascular: No chest pain. Pulmonary: No shortness of breath Gastrointestinal: denies abdominal pain No nausea. No vomiting. Genitourinary: No pain while urinating. Denies blood in urine. All other negative Physical Examination: General Appearance: Comfortable, in no acute respiratory distress, co-operative . Vitals reviewed and noted as below Head; Atraumatic, normocephalic ENT: no ulcers no thrush. Tongue is midline. Oropharynx: no rash or ulcers. LEft EYE: Pupils are round and reactive to light accommodation. Eye muscles and extraocular movement intact. Sclera is anicteric. 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 Breath sounds bilateral equal and clear Heart: Normal rate. s1s2 normal. No rub or gallop. Extremities: no edema. No varicose veins Neurological: Patient is alert, awake and oriented to person, place and time. No focal deficit. Strength bilateral appropriate and equal Skin: Warm and dry. Normal turgor. No rash. Palpitation: Normal elasticity for age Abdomen: Abdomen is soft. Bowel sounds +. There is no abdominal tenderness, no guarding/rigidity no organomegaly Psych: limited insight and normal affect/mood MSK: no joint tenderness or swelling. Digits and nails normal, no deformity : kidney or bladder not palpable Labs/imaging reviewed. Past medical history, past surgical history, family history, social history, allergy reviewed and noted as below Family hx: no hx of CKD. Rest non-contributory past work up: C3/C4/MARYBETH/Hep B and C neg. UA 100 protein with glucose no ketones 1.3 gram proteinuria in past renal imaging: possible renal cyst left side echo normal LVEF Objective - Vital Signs/Intake and Output Vital Signs (last 24 hours): Temp Pulse Resp BP Pulse Ox 97.7 F 95 H 20 164/85 H 95 12/30/17 14:08 12/30/17 14:08 12/30/17 14:08 12/30/17 14:08 12/30/17 06:00 Intake and Output: 12/30/17 12/30/17 06:59 18:59 Intake Total 1730 240 Output Total 600 Balance 1130 240 - Medications Medications: Current Medications Acetaminophen (Tylenol 325mg Tab) 650 mg PO Q6H PRN PRN Reason: Pain, Mild (1-3) Last Admin: 12/30/17 11:47 Dose: 650 mg Amlodipine Besylate (Norvasc) 5 mg PO DAILY [facility] Last Admin: 12/30/17 09:08 Dose: 5 mg Arformoterol Tartrate (Brovana) 15 mcg IH [id number] [facility] Last Admin: 12/30/17 07:44 Dose: 15 mcg Aspirin (Ecotrin) 81 mg PO DAILY [facility] Last Admin: 12/30/17 09:08 Dose: 81 mg Atorvastatin Calcium (Lipitor) 40 mg PO DIN [facility] Last Admin: 12/29/17 17:04 Dose: 40 mg Benzocaine/Menthol (Cepacol Sore Throat) 1 shant MT Q2H PRN PRN Reason: Sore Throat Budesonide (Pulmicort Respules) 0.25 mg IH [id number] [facility] Last Admin: 12/30/17 07:44 Dose: 0.25 mg Clopidogrel Bisulfate (Plavix) 75 mg PO DAILY [facility] Last Admin: 12/30/17 09:08 Dose: 75 mg Ergocalciferol (Drisdol 50,000 Intl Units Cap) 1 cap PO Q7D [facility] Last Admin: 12/30/17 11:48 Dose: 1 cap Ferrous Gluconate (Fergon) 324 mg PO TID [facility] Last Admin: 12/30/17 14:45 Dose: 324 mg Hydralazine HCl (Apresoline) 25 mg PO Q4 PRN PRN Reason: Other Last Admin: 12/30/17 06:05 Dose: 25 mg Fluconazole 100 mg/ (Miscellaneous) 50 mls @ 100 mls/hr IVPB DAILY [facility] PRN Reason: Protocol Last Admin: 12/30/17 11:47 Dose: 100 mls/hr Ceftriaxone Sodium (Rocephin 1 Gram Ivpb) 1 gm in 100 mls @ 100 mls/hr IVPB DAILY [facility] PRN Reason: Protocol Last Admin: 12/30/17 14:45 Dose: 100 mls/hr Insulin Detemir (Levemir) 30 unit SC HS [facility] Last Admin: 12/29/17 22:23 Dose: 30 unit Insulin Human Regular (Humulin R High) 0 units SC ACHS [facility] PRN Reason: Protocol Last Admin: 12/30/17 12:33 Dose: 10 units Losartan Potassium (Cozaar) 50 mg PO DAILY [facility] Last Admin: 12/30/17 11:47 Dose: 50 mg Multivitamins (Thera Tab) 1 tab PO DAILY [facility] Last Admin: 12/30/17 09:08 Dose: 1 tab Sitagliptin Phosphate (Januvia) 25 mg PO DAILY [facility] Last Admin: 12/30/17 09:08 Dose: 25 mg - Labs Labs: 12/30/17 06:15 12/30/17 06:15 PT 11.9 SECONDS (9.4-12.5) 12/28/17 14:20 INR 1.03 (0.93-1.08) 12/28/17 14:20 APTT 27.0 Seconds (25.1-36.5) 12/28/17 14:20
[2017-12-30] MEDS: Insulin Detemir 100 units/ml Vial (Levemir) SC SCH (21:51)
[2017-12-30 23:46] VITALS: RESP 20
[2017-12-31 06:33] VITALS: TEMP 97.7; O2SAT 96
[2017-12-31 07:03] LABS: HEMOGLOBIN 10.3 g/dL (12.0-16.0); MEAN CELL VOLUME 90.7 fl (80.0-105.0); MEAN CORPUSCULAR HEMOGLOBIN 29.2 pg (25.0-35.0); MEAN CORPUSCULAR HGB CONC 32.2 g/dl (31.0-37.0); MEAN PLATELET VOLUME 9.2 fl (7.0-11.0); RBC 3.53 10^6/uL (3.5-6.1); RED CELL DISTRIBUTION WIDTH 13.2 % (11.5-14.5); WHITE BLOOD COUNT 8.9 10^3/ul (4.5-11.0)
[2017-12-31 07:04] LABS: ALB/GLOB RATIO 0.8 (1.1-1.8); ALBUMIN 3.1 g/dL (3.0-4.8); CALCIUM 8.6 mg/dL (8.4-10.5)
[2017-12-31] MEDS: Insulin Reg-HIGH-Coverage SC SCH (07:46)
[2017-12-31] MEDS: Budesonide 0.25 mg/2 ml Inhal Susp UD IH SCH (08:29)
[2017-12-31] MEDS: Arformoterol 15 mcg/2 ml Inh Sol IH SCH (08:30)
[2017-12-31] MEDS: Fluconazole IV 200mg/100 ml NS 100 MG in Premixed IV 1 EA IVPB SCH (10:09)
[2017-12-31] MEDS: cefTRIAXone 1 gm 1 GM/100 ML BAG IVPB SCH (10:10)
[2017-12-31] MEDS: Multivitamin Therapeutic Tab PO SCH (10:11)
--- NOTE | 2017-12-31 10:26 | PQF CLVAL ---
This form is a permanent part of the medical record Dr. Ward, This patient was admitted with several day hx of fever and chills at home. On arrival temp only 99 with tachycardia and leukocytosis of 18.0 Urine culture was positive. Your overall physical noted that she looked non- toxic. Admitting diagnosis was UTI, sepsis. Your subsequent documentation states POSSIBLE sepsis. Please provide any additional clinical indicators to support diagnosis of sepsis. Clarification of your documentation is requested to better reflect the severity of illness and intensity of treatment of your patient. The patients Clinical Indicators include:xxxxas per ID __temp 99, tachycardia, wbc 18, positive urine culture. . Please provide additional clinical indicators supportive of your documented diagnosis of . [ ] Condition exists and additional clinical indicators documented in the medical record (please document in your next progress note) [ ] Condition does not exist and amended documentation provided in the medical record (please provide amended documentation in your next progress note) [ ] Unable to provide additional clarity regarding the diagnosis [ ] Other (please specify) [ ] Unknown In responding to this query, please exercise your independent professional judgment. The fact that a question is asked does not imply that any particular answer is desired or expected. Thank you for your clarification on this documentation. 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
[2017-12-31 10:28] VITALS: BP 172/82
[2017-12-31 12:27] VITALS: PULSE 80
--- NOTE | 2017-12-31 12:27 | CP.PCM.PN ---
Subjective - Date & Time of Evaluation Date of Evaluation: 12/31/17 Time of Evaluation: 12:26 - Subjective Subjective: Nephrology Consultation: Assessment: Stable UTI Acute Kidney Injury (N17.9): resolved Hyponatremia and Hyperkalemia due to hyperglycemia with uncontrolled DM Diabetic chronic Kidney Disease (E11.22) Hypertensive Chronic Kidney Disease (I12.9) Chronic Kidney Disease (N18.3) Stage 3 with 1.3gm proteinuria (R80.9) likely due to DM, HTN Anemia (D64.9), HTN (I12.9) Plan No acute need for renal replacement therapy at this time. Hypertension control with meds as ordered. Patient not on ACEI/ARB henec started losartan 50 mg/day. Added labetalol 200 mg one tablet 2 times a day Monitor Input/Output, daily weights and renal function with basic metabolic panel will add iron supplements and MVI, weekly vit D Check urine analysis, spot protein/creatinine and albumin/creatinine ratio Check for 25-OH vitamin D, iPTH, phosphorus level Check iron studies Dose meds/antibiotics for reduced GFR. Avoid fleets enema/magnesium based laxatives. Avoid nephrotoxins/NSAIDs/ iodinated contrast (unless needed emergently) Glycemic control Further work up/management as per primary team Patient and his family has been advised to follow up in renal clinic 1 week after discharge Thanks for allowing me to participate in care of your patient. Will follow patient with you. Please call if any Qs. d/w team and son Dr Robby Jean-Baptiste Office: [phone] reason for consult: MELECIO and CKD HPI: Pt is a 82 F with hx of diabetes Mellitus (20-30 years), hypertension (20- 30 years), CKD stage 3 (with baseline cr 1.4-1.7), CAD, anemia presented with complaints of fever and urinary tract infections symptoms off and on for last 1 week. she is being managed in hospital for UTI. also with hperglycemia, MELECIO, hyperkalemia initially on presentation hence consult for renal she feels better at this time Denies OTC/herbal meds or NSAIDs No recent iodinated contrast exposure. No obvious episodes of low BP. ROS: Cardiovascular: No chest pain. Pulmonary: No shortness of breath Gastrointestinal: denies abdominal pain No nausea. No vomiting. Genitourinary: No pain while urinating. Denies blood in urine. All other negative Physical Examination: General Appearance: Comfortable, in no acute respiratory distress, co-operative . Vitals reviewed and noted as below Head; Atraumatic, normocephalic ENT: no ulcers no thrush. Tongue is midline. Oropharynx: no rash or ulcers. LEft EYE: Pupils are round and reactive to light accommodation. Eye muscles and extraocular movement intact. Sclera is anicteric. 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 Breath sounds bilateral equal and clear Heart: Normal rate. s1s2 normal. No rub or gallop. Extremities: no edema. No varicose veins Neurological: Patient is alert, awake and oriented to person, place and time. No focal deficit. Strength bilateral appropriate and equal Skin: Warm and dry. Normal turgor. No rash. Palpitation: Normal elasticity for age Abdomen: Abdomen is soft. Bowel sounds +. There is no abdominal tenderness, no guarding/rigidity no organomegaly Psych: limited insight and normal affect/mood MSK: no joint tenderness or swelling. Digits and nails normal, no deformity : kidney or bladder not palpable Labs/imaging reviewed. Past medical history, past surgical history, family history, social history, allergy reviewed and noted as below Family hx: no hx of CKD. Rest non-contributory past work up: C3/C4/MARYBETH/Hep B and C neg. UA 100 protein with glucose no ketones 1.3 gram proteinuria in past renal imaging: possible renal cyst left side echo normal LVEF Objective - Vital Signs/Intake and Output Vital Signs (last 24 hours): Temp Pulse Resp BP Pulse Ox 97.7 F 102 H 20 172/82 H 96 12/31/17 06:00 12/31/17 06:00 12/31/17 06:00 12/31/17 10:11 12/31/17 06:00 Intake and Output: 12/31/17 12/31/17 06:59 18:59 Intake Total 780 Balance 780 - Medications Medications: Current Medications Acetaminophen (Tylenol 325mg Tab) 650 mg PO Q6H PRN PRN Reason: Pain, Mild (1-3) Last Admin: 12/30/17 20:36 Dose: 650 mg Amlodipine Besylate (Norvasc) 5 mg PO DAILY [facility] Last Admin: 12/31/17 10:11 Dose: 5 mg Arformoterol Tartrate (Brovana) 15 mcg IH [id number] [facility] Last Admin: 12/31/17 08:30 Dose: 15 mcg Aspirin (Ecotrin) 81 mg PO DAILY [facility] Last Admin: 12/31/17 10:11 Dose: 81 mg Atorvastatin Calcium (Lipitor) 40 mg PO DIN [facility] Last Admin: 12/30/17 17:19 Dose: 40 mg Benzocaine/Menthol (Cepacol Sore Throat) 1 shant MT Q2H PRN PRN Reason: Sore Throat Budesonide (Pulmicort Respules) 0.25 mg IH [id number] [facility] Last Admin: 12/31/17 08:29 Dose: 0.25 mg Clopidogrel Bisulfate (Plavix) 75 mg PO DAILY [facility] Last Admin: 12/31/17 10:10 Dose: 75 mg Ergocalciferol (Drisdol 50,000 Intl Units Cap) 1 cap PO Q7D [facility] Last Admin: 12/30/17 11:48 Dose: 1 cap Ferrous Gluconate (Fergon) 324 mg PO TID [facility] Last Admin: 12/31/17 10:11 Dose: 324 mg Hydralazine HCl (Apresoline) 25 mg PO Q4 PRN PRN Reason: Other Last Admin: 12/31/17 06:00 Dose: 25 mg Fluconazole 100 mg/ (Miscellaneous) 50 mls @ 100 mls/hr IVPB DAILY [facility] PRN Reason: Protocol Last Admin: 12/31/17 10:09 Dose: 100 mls/hr Ceftriaxone Sodium (Rocephin 1 Gram Ivpb) 1 gm in 100 mls @ 100 mls/hr IVPB DAILY [facility] PRN Reason: Protocol Last Admin: 12/31/17 10:10 Dose: 100 mls/hr Insulin Detemir (Levemir) 30 unit SC HS [facility] Last Admin: 12/30/17 21:51 Dose: Not Given Insulin Human Regular (Humulin R High) 0 units SC ACHS [facility] PRN Reason: Protocol Last Admin: 12/31/17 07:46 Dose: 2 units Labetalol HCl (Trandate) 200 mg PO BID [facility] Last Admin: 12/31/17 10:11 Dose: 200 mg Losartan Potassium (Cozaar) 50 mg PO DAILY [facility] Last Admin: 12/31/17 10:10 Dose: 50 mg Multivitamins (Thera Tab) 1 tab PO DAILY [facility] Last Admin: 12/31/17 10:11 Dose: 1 tab Sitagliptin Phosphate (Januvia) 25 mg PO DAILY [facility] Last Admin: 12/31/17 10:10 Dose: 25 mg - Labs Labs: 12/31/17 06:15 12/31/17 06:15 PT 11.9 SECONDS (9.4-12.5) 12/28/17 14:20 INR 1.03 (0.93-1.08) 12/28/17 14:20 APTT 27.0 Seconds (25.1-36.5) 12/28/17 14:20
--- NOTE | 2017-12-31 13:34 | CP.PCM.PN ---
Subjective - Date & Time of Evaluation Date of Evaluation: 12/31/17 Time of Evaluation: 10:10 - Subjective Subjective: Swallowing better, much improved pain, no fevers, no dysuria, feeling better. Objective - Vital Signs/Intake and Output Vital Signs (last 24 hours): Temp Pulse Resp BP Pulse Ox 97.7 F 102 H 20 183/83 H 96 12/31/17 06:00 12/31/17 06:00 12/31/17 06:00 12/31/17 06:00 12/31/17 06:00 Intake and Output: 12/31/17 12/31/17 06:59 18:59 Intake Total 780 Balance 780 - Medications Medications: Current Medications Acetaminophen (Tylenol 325mg Tab) 650 mg PO Q6H PRN PRN Reason: Pain, Mild (1-3) Last Admin: 12/30/17 20:36 Dose: 650 mg Amlodipine Besylate (Norvasc) 5 mg PO DAILY [facility] Last Admin: 12/30/17 09:08 Dose: 5 mg Arformoterol Tartrate (Brovana) 15 mcg IH [id number] [facility] Last Admin: 12/30/17 19:49 Dose: 15 mcg Aspirin (Ecotrin) 81 mg PO DAILY [facility] Last Admin: 12/30/17 09:08 Dose: 81 mg Atorvastatin Calcium (Lipitor) 40 mg PO DIN [facility] Last Admin: 12/30/17 17:19 Dose: 40 mg Benzocaine/Menthol (Cepacol Sore Throat) 1 shant MT Q2H PRN PRN Reason: Sore Throat Budesonide (Pulmicort Respules) 0.25 mg IH [id number] [facility] Last Admin: 12/30/17 19:49 Dose: 0.25 mg Clopidogrel Bisulfate (Plavix) 75 mg PO DAILY [facility] Last Admin: 12/30/17 09:08 Dose: 75 mg Ergocalciferol (Drisdol 50,000 Intl Units Cap) 1 cap PO Q7D [facility] Last Admin: 12/30/17 11:48 Dose: 1 cap Ferrous Gluconate (Fergon) 324 mg PO TID [facility] Last Admin: 12/30/17 17:45 Dose: 324 mg Hydralazine HCl (Apresoline) 25 mg PO Q4 PRN PRN Reason: Other Last Admin: 12/31/17 06:00 Dose: 25 mg Fluconazole 100 mg/ (Miscellaneous) 50 mls @ 100 mls/hr IVPB DAILY [facility] PRN Reason: Protocol Last Admin: 12/30/17 11:47 Dose: 100 mls/hr Ceftriaxone Sodium (Rocephin 1 Gram Ivpb) 1 gm in 100 mls @ 100 mls/hr IVPB DAILY [facility] PRN Reason: Protocol Last Admin: 12/30/17 14:45 Dose: 100 mls/hr Insulin Detemir (Levemir) 30 unit SC HS [facility] Last Admin: 12/30/17 21:51 Dose: Not Given Insulin Human Regular (Humulin R High) 0 units SC ACHS [facility] PRN Reason: Protocol Last Admin: 12/31/17 07:46 Dose: 2 units Losartan Potassium (Cozaar) 50 mg PO DAILY [facility] Last Admin: 12/30/17 11:47 Dose: 50 mg Multivitamins (Thera Tab) 1 tab PO DAILY [facility] Last Admin: 12/30/17 09:08 Dose: 1 tab Sitagliptin Phosphate (Januvia) 25 mg PO DAILY [facility] Last Admin: 12/30/17 09:08 Dose: 25 mg - Labs Labs: 12/31/17 06:15 12/31/17 06:15 PT 11.9 SECONDS (9.4-12.5) 12/28/17 14:20 INR 1.03 (0.93-1.08) 12/28/17 14:20 APTT 27.0 Seconds (25.1-36.5) 12/28/17 14:20 - Constitutional Appears: Non-toxic, Chronically Ill - Head Exam Head Exam: NORMAL INSPECTION - ENT Exam ENT Exam: Mucous Membranes Moist Additional comments: no more whitish plaques - Neck Exam Neck Exam: absent: Meningismus - Cardiovascular Exam Cardiovascular Exam: +S1, +S2 - GI/Abdominal Exam GI & Abdominal Exam: Soft. absent: Tenderness Assessment and Plan - Assessment and Plan (Free Text) Plan: Assessment consider sepsis from UTI with Klebsiella, clinically improving oral candidiasis, clinically improving history of severe sepsis secondary to E. coli bacteremia, probably from pyelonephritis history of acute acalculous cholecystitis S/P laparoscopic cholecystectomy (OR ) HTN CAD S/P PCI DM GERD Plan on Rocephin (day 3) - may switch to PO antibiotics (keflex) when ready for discharge (to complete up to 7-10 days of therapy) will continue Diflucan to complete 7 days of therapy (can switch to PO when ready for discharge) discussed with Dr. Ward
--- NOTE | 2017-12-31 22:00 | DS ---
HISTORY OF PRESENT ILLNESS: I saw her resting comfortably in bed. She slept well last night. She has no complaints. No chest pain or shortness of breath. No abdominal pain. She is feeling better. She is eating well and she knows she might be going home today. PHYSICAL EXAMINATION: VITAL SIGNS: She has 97.7 temperature, 102 pulse, 183/83 blood pressure, 20 respiratory rate, 96% of O2 sat on room air. HEENT: Head is atraumatic, normocephalic. She is right eye blind. Throat is not healing. She is on Diflucan for the thrush. HEART: Regular rate. LUNGS: Decreased breath sounds but clear. ABDOMEN: Soft, obese. EXTREMITIES: No edema. DISCHARGE MEDICATIONS: She is going to go home on Apresoline, Brovana, Cepacol, Cozaar, Drisdol, Ecotrin, Fergon, fluconazole will be changed to p.o., insulin, Januvia, Levemir, Lipitor, Norvasc, Plavix, Pulmicort, multivitamins, Tylenol and Rocephin will be changed to an antibiotic, I will discuss this with the Infectious Disease doctor, and she would be discharged later today. LABORATORY DATA: Her numbers for today are better. She has 139 sodium, potassium is 5, BUN 25, creatinine 1.6, GFR is 31, sugar is 183, calcium is 8.6. AST is 41, ALT is 44, alkaline phosphatase 135, and 6.9 is her total protein. White count is low at 8.9, hemoglobin 10.3, hematocrit 32, platelets of 379. ASSESSMENT AND PLAN: She was here for urosepsis, hypertension, diabetes, acute kidney injury, urinary tract infection and thrush. We will follow up on the outpatient. Jonah Ward DO
--- NOTE | 2018-01-01 18:44 | PQF CLVAL ---
This form is a permanent part of the medical record Dr. Ward, This patient was admitted with several day hx of fever and chills at home. On arrival temp only 99 with tachycardia and leukocytosis of 18.0 Urine culture was positive. Your overall physical noted that she looked non- toxic. Admitting diagnosis was UTI, sepsis. Your subsequent documentation states POSSIBLE sepsis. Please provide any additional clinical indicators to support diagnosis of sepsis. Previous query form signed only. Thank you for your response. Clarification of your documentation is requested to better reflect the severity of illness and intensity of treatment of your patient. The patients Clinical Indicators include:xxxxas per ID __temp 99, tachycardia, wbc 18, positive urine culture. . Please provide additional clinical indicators supportive of your documented diagnosis of . [ ] Condition exists and additional clinical indicators documented in the medical record (please document in your next progress note) [ ] Condition does not exist and amended documentation provided in the medical record (please provide amended documentation in your next progress note) [ ] Unable to provide additional clarity regarding the diagnosis [ ] Other (please specify) as per the infectious disease dr [ ] Unknown In responding to this query, please exercise your independent professional judgment. The fact that a question is asked does not imply that any particular answer is desired or expected. Thank you for your clarification on this documentation. 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
== END 2017-12-31 12:51 | disposition home health service (06) | DRG 872 ==
LOC: ED 13:10 → ERH 15:54 → 3RSO 19:36
PROVIDERS: ADMIT Family Medicine; ATTEND Family Medicine
DX: A41.9 Sepsis, unspecified organism (principal); N39.0 Urinary tract infection, site not specified; B37.0 Candidal stomatitis; E87.1 Hypo-osmolality and hyponatremia; L02.211 Cutaneous abscess of abdominal wall; N17.9 Acute kidney failure, unspecified; D64.9 Anemia, unspecified; E11.22 Type 2 diabetes mellitus with diabetic chronic kidney disease; E11.65 Type 2 diabetes mellitus with hyperglycemia; E78.00 Pure hypercholesterolemia, unspecified; E87.5 Hyperkalemia; H54.7 Unspecified visual loss; I12.9 Hypertensive chronic kidney disease with stage 1 through stage 4 chronic kidney disease, or unspecified chronic kidney disease; I25.118 Atherosclerotic heart disease of native coronary artery with other forms of angina pectoris; K21.9 Gastro-esophageal reflux disease without esophagitis; N18.3 Chronic kidney disease, stage 3 (moderate); Z79.4 Long term (current) use of insulin; Z90.49 Acquired absence of other specified parts of digestive tract; Z95.5 Presence of coronary angioplasty implant and graft; B95.4 Other streptococcus as the cause of diseases classified elsewhere; B96.1 Klebsiella pneumoniae [K. pneumoniae] as the cause of diseases classified elsewhere

== ENCOUNTER 2018-01-05 19:14 | Observation (INO) | payer MEDICARE, OTHER ==
[2018-01-05 19:16] VITALS: BMI 24.3
--- NOTE | 2018-01-05 19:47 | ED PDOC ---
Arrival/HPI - General Chief Complaint: Altered Mental Status Time Seen by Provider: 01/05/18 19:18 Historian: Patient - History of Present Illness Narrative History of Present Illness (Text): 01/05/18 19:44 Patient is an 82 year old female, with past medical history of diabetes, hypertension, CAD s/p cardiac stent placement, and urosepsis, presents to the Emergency department complaining of generalized malaise and weakness since today. Patient informs episodes of dizziness, head discomfort and near syncope. Patient denies any chest pain, shortness of breath, fever, chills, nausea, vomiting, diarrhea, abdominal pain, or any other complaints. PMD: Dr. Gonzalez Time/Duration: 24 hours Symptom Onset: Gradual Symptom Course: Unchanged Activities at Onset: Light Context: Home Past Medical History - Provider Review Nursing Documentation Reviewed: Yes - Infectious Disease Hx of Infectious Diseases: None - Cardiac Hx Cardiac Disorders: (CAD, [place], Angioplasty) - Pulmonary Hx Respiratory Disorders: No - Neurological Hx Neurological Disorder: Yes (PHERIPHERAL NEUROPATHY) - HEENT Hx HEENT Disorder: Yes Hx Blind: Yes (RIGHT EYE-INJURY) - Renal Hx Renal Disorder: No - Endocrine/Metabolic Hx Diabetes Mellitus Type 2: Yes - Hematological/Oncological Hx Blood Disorders: No - Integumentary Hx Dermatological Disorder: No - Musculoskeletal/Rheumatological Hx Falls: Yes - Gastrointestinal Hx Gastrointestinal Disorders: Yes (POST LAP CONRAD 2-3-17,ACUTE CHOLEYCYSTITIS, GERD) - Genitourinary/Gynecological Hx Genitourinary Disorders: No - Psychiatric Hx Emotional Abuse: No Hx Physical Abuse: No Hx Substance Use: No - Surgical History Hx Cardiac Catheterization: Yes Hx Coronary Stent: Yes (X1) Hx Orthopedic Surgery: Yes Other/Comment: R eye surgery - Anesthesia Hx Anesthesia: Yes Hx Anesthesia Reactions: No Hx Malignant Hyperthermia: No - Suicidal Assessment Feels Threatened In Home Enviroment: No Family/Social History - Physician Review Nursing Documentation Reviewed: Yes Family/Social History: No Known Family HX Smoking Status: Never Smoked Hx Alcohol Use: No Hx Substance Use: No Allergies/Home Meds Allergies/Adverse Reactions: Allergies Iodinated Contrast- Oral and IV Dye Allergy (Verified 12/28/17 13:32) NAUSEA Home Medications: Home Meds Medication Instructions Recorded Confirmed Budesonide/Formoterol Fumarate 1 puff INH BID 12/28/17 12/28/17 [Symbicort 80-4.5 Mcg Inhaler] Metformin ER [Glucophage XR] 500 tab PO DAILY 12/28/17 12/28/17 Review of Systems - Physician Review All systems were reviewed & negative as marked: Yes - Review of Systems Constitutional: Other (generalized weakness and malaise). absent: Fevers Respiratory: Normal. absent: SOB Cardiovascular: Normal. absent: Chest Pain Gastrointestinal: absent: Abdominal Pain, Diarrhea, Nausea, Vomiting Neurological: Headache, Dizziness Physical Exam Vital Signs Reviewed: Yes Vital Signs Temp Pulse Resp BP Pulse Ox 01/05/18 22:05 92 H 22 167/77 H 97 01/05/18 19:35 97.7 F 93 H 18 99 Temperature: Afebrile Blood Pressure: Normal Pulse: Regular Respiratory Rate: Normal Appearance: Positive for: Well-Appearing, Non-Toxic, Comfortable Pain Distress: None Mental Status: Positive for: Alert and Oriented X 3 - Systems Exam Head: Present: Atraumatic, Normocephalic Pupils: Present: PERRL Extroacular Muscles: Present: EOMI Conjunctiva: Present: Other (scarring on right eye) Mouth: Present: Moist Mucous Membranes Neck: Present: Normal Range of Motion Respiratory/Chest: Present: Clear to Auscultation, Good Air Exchange. No: Respiratory Distress, Accessory Muscle Use Cardiovascular: Present: Regular Rate and Rhythm, Normal S1, S2. No: Murmurs Abdomen: No: Tenderness, Distention, Peritoneal Signs Back: Present: Normal Inspection Upper Extremity: Present: Normal Inspection. No: Cyanosis, Edema Lower Extremity: Present: Normal Inspection. No: Edema Neurological: Present: GCS=15, CN II-XII Intact, Speech Normal, Motor Func Grossly Intact, Normal Sensory Function, Normal Cerebellar Funct Skin: Present: Warm, Dry, Normal Color. No: Rashes Psychiatric: Present: Alert, Oriented x 3, Normal Insight, Normal Concentration Medical Decision Making ED Course and Treatment: 01/05/18 19:52 Impression: 82 year old female presents to the Emergency department for generalized weakness, malaise, dizziness and episodes of near syncope. Plan: -- CT of head -- EKG -- Labs -- Chest X-ray -- Reassess and disposition Progress Notes: 01/05/18 20:00 EKG: Ordered, reviewed, and independently interpreted the EKG. Rate : 90 BPM Rhythm : NSR Interpretation : Septal infarct. Nonspecific ST/T wave changes. 01/05/18 21:54 CXR Impression: As read by me, no acute process. EXAM: CT Head Without Intravenous Contrast Dictated and Authenticated by: Veronica Dickerson MD 01/05/2018 9:57 PM IMPRESSION There are low-attenuation areas in the periventricular white matter and basal ganglia, probably reflecting chronic ischemic changes. However, if there is clinical concern for an acute infarction, followup MRI could be useful 01/05/18 22:[address] Ward who is aware and agrees with the plan. Accepts patient into his service. Request Dr. Brandon and Dr. Muñoz for consult. - Lab Interpretations Lab Results: 01/05/18 20:56 01/05/18 20:56 Lab Results 01/05/18 20:56: WBC 9.9, RBC 3.97, Hgb 12.0, Hct 36.5, MCV 91.9, MCH 30.2, MCHC 32.9, RDW 13.1, Plt Count 527 H, MPV 8.9 01/05/18 20:56: Sodium 136, Potassium 6.1 H* D, Chloride 102, Carbon Dioxide 25 , Anion Gap 15, BUN 28 H, Creatinine 1.6 H, Est GFR ( Amer) 37, Est GFR ( Non-Af Amer) 31, Random Glucose 132 H, Calcium 9.9, Total Bilirubin 0.2, AST 36 , ALT 43, Alkaline Phosphatase 152 H, Lactate Dehydrogenase 531, Total Creatine Kinase < 20 L, Troponin I < 0.01, Total Protein 8.1, Albumin 3.7, Globulin 4.4, Albumin/Globulin Ratio 0.9 L 01/05/18 20:56: PT 10.8, INR 0.95, APTT 27.4 01/05/18 19:53: POC Glucose (mg/dL) 165 H - RAD Interpretation Radiology Orders: 01/05/18 19:44 HEAD W/O CONTRAST [CT] Stat 01/05/18 19:46 CHEST PORTABLE [RAD] Stat - Medication Orders Current Medication Orders: Sodium Bicarbonate (Sodium Bicarbonate 8.4% (50 Meq) Syringe) 50 meq IVP ONCE ONE Stop: 01/05/18 22:15 Discontinued Medications Dextrose (Dextrose 50% Inj) 50 ml IVP ONCE ONE Stop: 01/05/18 21:33 Last Admin: 01/05/18 21:51 Dose: 50 ml IVP Administration Document 01/05/18 21:51 CNR (Rec: 01/05/18 21:51 CNR [id number]) Charges for Administration # of IVP Administrations 1 Insulin Human Regular (Humulin R) 10 units IVP STAT STA Stop: 01/05/18 21:33 Last Admin: 01/05/18 21:51 Dose: 10 units IVP Administration Document 01/05/18 21:51 CNR (Rec: 01/05/18 21:52 CNR [id number]) Charges for Administration # of IVP Administrations 1 Sodium Polystyrene Sulfonate (Kayexalate Susp) 30 gm PO ONCE ONE Stop: 01/05/18 21:33 Last Admin: 01/05/18 21:52 Dose: 30 gm - Scribe Statement The provider has reviewed the documentation as recorded by the Kulwantibe Brittany Garcia. All medical record entries made by the Kulwantibandrez were at my direction and personally dictated by me. I have reviewed the chart and agree that the record accurately reflects my personal performance of the history, physical exam, medical decision making, and the department course for this patient. I have also personally directed, reviewed, and agree with the discharge instructions and disposition. Disposition/Present on Arrival - Present on Arrival Any Indicators Present on Arrival: No History of DVT/PE: No History of Uncontrolled Diabetes: Yes Urinary Catheter: No History of Decub. Ulcer: No History Surgical Site Infection Following: None - Disposition Have Diagnosis and Disposition been Completed?: Yes Diagnosis: Near syncope, Dizziness, Hyperkalemia Disposition: HOSPITALIZED Disposition Time: 22:16 Condition: STABLE Referrals: Jonah Ward DO [Primary Care Provider] - Follow up with primary Forms: [email or web address] (Bengali)
[2018-01-05 21:06] LABS: MEAN CELL VOLUME 91.9 fl (80.0-105.0); MEAN CORPUSCULAR HEMOGLOBIN 30.2 pg (25.0-35.0); MEAN CORPUSCULAR HGB CONC 32.9 g/dl (31.0-37.0); MEAN PLATELET VOLUME 8.9 fl (7.0-11.0); RBC 3.97 10^6/uL (3.5-6.1); RED CELL DISTRIBUTION WIDTH 13.1 % (11.5-14.5); WHITE BLOOD COUNT 9.9 10^3/ul (4.5-11.0)
[2018-01-05 21:11] LABS: INR 0.95 (0.93-1.08); PARTIAL THROMBOPLASTIN TIME 27.4 Seconds (25.1-36.5); PROTHROMBIN TIME 10.8 SECONDS (9.4-12.5)
[2018-01-05 21:22] LABS: ALB/GLOB RATIO 0.9 (1.1-1.8); ALBUMIN 3.7 g/dL (3.0-4.8); ALT/SGPT 43 U/L (7-56); AST/SGOT 36 U/L (14-36); BLOOD UREA NITROGEN 28 mg/dL (7-21); CALCIUM 9.9 mg/dL (8.4-10.5); GFR AFRICAN-AMERICAN 37; GFR NON-AFRICAN AMERICAN 31
[2018-01-05 21:24] LABS: TROPONIN I < 0.01 ng/mL
[2018-01-05] MEDS ORDERED: Insulin Regular 1 UNITS/0.01 ML ML IVP STA (21:32)
[2018-01-05] MEDS ORDERED: Dextrose 50% SYRINGE Inj (50 ml) IVP ONE (21:32)
[2018-01-05] MEDS ORDERED: Sod Polystyrene Sulf 15 gm/60 ml Susp PO ONE (21:32)
[2018-01-05] MEDS ORDERED: Sodium Bicarbonate (8.4%) 50 Meq Syringe IVP ONE (22:14)
--- NOTE | 2018-01-06 07:01 | CT ---
PROCEDURE: CT HEAD WITHOUT CONTRAST. HISTORY: headache/dizzy COMPARISON: 12/28/2017 TECHNIQUE: Axial computed tomography images were obtained through the head/brain without intravenous contrast. Radiation dose: Total exam DLP = 937 mGy-cm. This CT exam was performed using one or more of the following dose reduction techniques: Automated exposure control, adjustment of the mA and/or kV according to patient size, and/or use of iterative reconstruction technique. FINDINGS: HEMORRHAGE: No intracranial hemorrhage. BRAIN: Again identified is focal low attenuation seen within the left frontal cortical and subcortical white matter suggestive for encephalomalacia. Scattered focal lucencies in the subcortical and periventricular white matter suggestive for chronic microvascular ischemic change. Bilateral basal ganglia calcifications. Punctate hypodensity in the right cerebellum laterally may represent a lacunar infarct, chronic. Cerebral and cerebellar volume loss. Vascular calcifications. Focal area of low attenuation seen on series 4, image 7 in the lateral aspect of the left cerebellum likely represents some streak artifact. Overall limited evaluation of the posterior fossa secondary to streak artifact. VENTRICLES: Unremarkable. No hydrocephalus. CALVARIUM: Unremarkable. PARANASAL SINUSES: Mild mucosal thickening in the ethmoid air cells. MASTOID AIR CELLS: Unremarkable as visualized. No inflammatory changes. OTHER FINDINGS: None. IMPRESSION: Probable chronic encephalomalacia in the anterior left frontal lobe. Chronic microvascular ischemic changes. Punctate chronic lacunar infarct in the right cerebellum. Limited evaluation of the posterior fossa secondary to streak artifact. Further evaluation with MRI would be helpful if clinically indicated, if there is concern for acute infarction. These findings were preliminarily reported at 9:57 p.m. on 01/05/[address] Veronica Dickerson from [employer].
[2018-01-06] MEDS ORDERED: Sodium Chloride 0.45% 1,000 ML IV SCH (08:30)
[2018-01-06 09:36] LABS: ALB/GLOB RATIO 0.8 (1.1-1.8); ALBUMIN 3.4 g/dL (3.0-4.8); CALCIUM 9.2 mg/dL (8.4-10.5)
--- NOTE | 2018-01-06 09:36 | RAD ---
HISTORY: dizzy COMPARISON: 12/28/2017 FINDINGS: LUNGS: No active pulmonary disease. PLEURA: No significant pleural effusion identified, no pneumothorax apparent. CARDIOVASCULAR: Normal. OSSEOUS STRUCTURES: No significant abnormalities. VISUALIZED UPPER ABDOMEN: Normal. OTHER FINDINGS: None. IMPRESSION: No active disease.
[2018-01-06 10:16] LABS: HDL CHOLESTEROL 43 mg/dL (29-60)
[2018-01-06 10:27] LABS: LDL CHOLESTEROL 50 mg/dL (0-129)
--- NOTE | 2018-01-06 10:34 | CARD ---
APPROVED REPORT EKG Measurement Heart [id number] <Conclusion> Normal sinus rhythm Septal infarct, age undetermined Leftward axis PRWP NSSTW changes
--- NOTE | 2018-01-06 13:59 | MRI ---
PROCEDURE: MRI BRAIN WITHOUT CONTRAST HISTORY: abnormal CT head COMPARISON: Noncontrast head CT from 01/05/2018. TECHNIQUE: Multiplanar, multisequence MR images of the brain were obtained without intravenous contrast enhancement. FINDINGS: HEMORRHAGE: None DWI: No evidence of an acute or early subacute infarction. BRAIN PARENCHYMA: There is focal cystic encephalomalacia and gliosis in the left frontal lobe. There are old lacunar infarctions in the cerebellar hemispheres. There are mild chronic microangiopathic changes. There is no mass, mass effect or abnormal extra-axial fluid collection. The midline sagittal structures are normal. VENTRICLES: There is moderate age-related global parenchymal volume loss and proportionate enlargement of the ventricles and cortical sulci. CRANIUM: There is normal bone marrow signal pattern. ORBITS: Grossly unremarkable. PARANASAL SINUSES/MASTOIDS: Predominantly clear. VASCULAR SYSTEM: There are normal signal voids in the larger intracranial arteries. OTHER FINDINGS: None. IMPRESSION: No acute intracranial abnormality. 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 Old lacunar infarctions in bilateral cerebellar hemispheres. Mild chronic microangiopathic changes and moderate age-related global parenchymal volume loss.
--- NOTE | 2018-01-06 14:36 | CON ---
DATE: 01/06/2018 HISTORY OF PRESENT ILLNESS: The patient is an 82-year-old woman who presents with dizziness and general malaise. PAST MEDICAL HISTORY: Includes diabetes mellitus, chronic renal insufficiency. She is also status post PTCA and stent in 2017, which was preceded by cholecystectomy for gallbladder disease. She denies chest pain. No shortness of breath. SOCIAL HISTORY: The patient does not smoke. REVIEW OF SYSTEMS: A 14-point review of systems was reviewed in detail. Her symptoms is dominated by general malaise and dizziness. No syncope noted. PHYSICAL EXAMINATION VITAL SIGNS: Blood pressure is 165/82, the heart rate is in the 90s. NECK: Negative JVD. LUNGS: Without rales. HEART: Reveals S1, S2. EXTREMITIES: Without edema. EKG shows normal sinus rhythm with no acute changes. Troponin is negative x1. The potassium went from 6.1 to 4.9. BUN and creatinine is 28 and 1.7. Hemoglobin is 12 with a white count of 9.9. IMPRESSION: 1. Dizziness. 2. General malaise. 3. Diabetes mellitus. 4. Stable angina. 5. Coronary artery disease. 6. Renal insufficiency. PLAN: Given these findings, there is no evidence for acute coronary syndrome. We will obtain an echocardiogram to evaluate her LV function. Physical exam reveals no significant aortic valve disease. Jatinder Muñoz MD
[2018-01-06] MEDS: Insulin Reg-MEDIUM-Coverage SC SCH ×3 (15:35→22:22)
--- NOTE | 2018-01-06 15:46 | US ---
PROCEDURE: Bilateral carotid artery duplex ultrasound HISTORY: Carotid stenosis syncope PHYSICIAN(S): Jatinder Reece MD. TECHNIQUE: Duplex sonography and color-flow Doppler were used to evaluate the carotid bifurcations and limited segments of the vertebral arteries bilaterally. FINDINGS: There is mild smooth focal echogenic plaque noted at the carotid bifurcations bilaterally. The peak systolic velocity in the proximal right internal carotid artery is 72 cm/sec. This corresponds to a 20 to 39% proximal right ICA stenosis. Normal systolic velocities are noted in the proximal right external carotid artery. There is antegrade flow in the right vertebral artery. The peak systolic velocity in the proximal left internal carotid artery is 104 cm/sec. This corresponds to a 20 to 39% proximal left ICA stenosis. Normal systolic velocities are noted in the proximal left external carotid artery. There is antegrade flow in the dominant left vertebral artery. IMPRESSION: 1. Bilateral 20-39% proximal ICA stenoses. 2. Antegrade flow in both vertebral arteries.
[2018-01-06 15:53] LABS: URINE BILIRUBIN NEGATIVE (NEGATIVE); URINE BLOOD TRACE-LYSED (NEGATIVE); URINE GLUCOSE (UA) >=1000 mg/dL (NEGATIVE); URINE LEUKOCYTE ESTERASE NEGATIVE Leu/uL (NEGATIVE); URINE PROTEIN 100 mg/dL (<30 mg/dL); URINE UROBILINOGEN 0.2 E.U./dL (<1 E.U./dL)
[2018-01-06 15:54] LABS: URINE APPEARANCE SLIGHT-CLOUDY (CLEAR); URINE COLOR YELLOW (YELLOW)
[2018-01-06 16:03] LABS: URINE RBC NEGATIVE /hpf (0-2); URINE WBC 0 - 2 /hpf (0-6)
--- NOTE | 2018-01-06 18:42 | HP ---
HISTORY OF PRESENT ILLNESS: I was called to see her. She is an 82-year-old female who I know from about a week ago when she was in the hospital, presents complaining of generalized malaise and weakness, also a little bit dizzy and she almost felt that she was going to pass out. 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 She has GERD, coronary artery stent x1, cardiac catheterization, orthopedic surgery and right eye surgery. FAMILY HISTORY: No family history that she could remember or speak of. SOCIAL HISTORY: Never smoked. No alcohol. No drugs. ALLERGIES: IODINATED CONTRAST, ORAL AND IV DYE. MEDICATIONS: She is on budesonide and metformin. REVIEW OF SYSTEMS: She has no changes in her vision and has poor vision in the right eye. Generalized weakness and malaise. No fever, just tired. She is not dizzy. Does not feel like she is going to faint at this time. No shortness of breath. No cough. No chest pain, no palpitations. No abdominal pain, nausea, vomiting, constipation, or diarrhea. She has a headache. She has a dizziness. There is kind of for which she could tell is intact. PHYSICAL EXAMINATION: VITAL SIGNS: She has a 97.7 temp, 93 pulse, 18 respiratory rate, 167/77 blood pressure, 99% O2 sat on room air. GENERAL: She is well appearing, nontoxic, comfortable at this time. Alert and oriented x3. HEENT: Head is atraumatic, normocephalic. The right eye is blind. Extraocular muscles are intact. Throat is moist. NECK: Supple. HEART: Regular rate. Normal S1, S2. LUNGS: Decreased breath sounds, but clear to auscultation bilaterally. No wheezes, rhonchi or rales. ABDOMEN: Soft, nontender. Positive bowel sounds. No guarding, no rebound, no CVA tenderness. EXTREMITIES: No edema. She can move all four extremities. GCS is 15. Cranial nerves II through XII grossly intact. Speech is normal. She is comfortable at this time. SKIN: Warm and dry. No apparent rashes or ulcers appreciated. NEUROLOGIC: Alert and oriented x3. Thyroid midline. No palpable appreciable lymphadenopathy. LABORATORY DATA AND IMAGING: She had a CT scan shows chronic ischemic changes, most probably. She had lab tests. She has sodium 136; potassium 6.1, she was treated for the 6.1; BUN 20, creatinine 1.6, they put her on IV fluids. GFR is 31, sugar is 132, calcium is 9.9, total bilirubin is 0.2, AST is 36, ALT is 43, alkaline phosphatase 152. Lactate dehydrogenase is 531. Troponin I is less than 0.01, total protein is 8.1. INR is 0.95. White count is 9.9, hemoglobin 12, hematocrit 36.5, platelets are 527. She is here for malaise, tiredness, almost a dizziness picture. She is going to have IV fluids. She will have consults with Cardiology and Neurology and hope she is on observation. Hopefully, she will do okay. Jonah Ward DO MTDJessika
--- NOTE | 2018-01-06 18:56 | CON ---
DATE: HISTORY OF PRESENT ILLNESS: This is an 82-year-old female with past medical history of diabetes, hypertension, status post cardiac stent and also right eye blind and also urosepsis came to the emergency room with complaint of generalized weakness and also has episode of dizziness and had syncopal episode and feeling much better. Family at bedside. MRI of the head was done, which shows left MCA and bilateral cerebellar old infarcts and carotid Doppler 20% to 30% mild carotid artery stenosis. PAST MEDICAL HISTORY: As above. LABORATORY DATA: WBC 9.9, hemoglobin 12, hematocrit 36.5, and platelets 527. Sodium 136 and chloride 102, CO2 25, glucose 132. BUN 28, creatinine 1.6 and, potassium 6.1, possibly hemolyzed. ASSESSMENT AND PLAN: The patient is doing much better. I spoke to the family and we will follow up. Torsten Brandon MD
[2018-01-06] MEDS ORDERED: Budesonide 0.5 mg/2 ml Inhal Susp UD IH SCH (20:00)
[2018-01-06] MEDS: Arformoterol 15 mcg/2 ml Inh Sol IH SCH (20:04)
[2018-01-06] MEDS: Budesonide 0.25 mg/2 ml Inhal Susp UD IH SCH (20:04)
[2018-01-06] MEDS ORDERED: Insulin Detemir 100 units/ml Vial (Levemir) SC SCH (22:00)
--- NOTE | 2018-01-06 23:37 | CARD ---
APPROVED REPORT EXAM: Two-dimensional and M-mode echocardiogram with Doppler and color Doppler. INDICATION Cardiac Disease: CAD 2D DIMENSIONS Left Atrium (2D)3.5 (1.6-4.0cm)IVSd1.2 (0.7-1.1cm) LVDd4.0 (3.9-5.9cm)PWd1.2 (0.7-1.1cm) LVDs2.9 (2.5-4.0cm)FS (%) 25.8 % LVEF (%)51.2 (>50%) M-Mode DIMENSIONS Aortic Root2.30 (2.2-3.7cm)Aortic Cusp Exc.1.40 (1.5-2.0cm) Aortic Valve AoV Peak Lrlmcomy063.0cm/Esthela Peak GR.7mmHg Mitral Valve MV E Hdvojfse76.4cm/sMV A Wzpytggw288.0cm/sE/A ratio0.7 TDI E/Lateral E'0.0E/Medial E'0.0 Tricuspid Valve TR Peak [id number]/sRAP [id number] Peak Gr.25mmHg [id number] LEFT VENTRICLE The left ventricle is normal size. There is borderline concentric left ventricular hypertrophy. Left ventricle systolic function is borderline. Transmitral Doppler flow pattern is Grade I-abnormal relaxation pattern. RIGHT VENTRICLE The right ventricle is normal size. There is normal right ventricular wall thickness. The right ventricular systolic function is normal. ATRIA The left atrium is mildly dilated. The right atrium size is normal. AORTIC VALVE The aortic valve is mildly thickened. No aortic regurgitation is present. There is no aortic valvular stenosis. MITRAL VALVE The mitral valve is moderately thickened. There is no mitral valve regurgitation noted. There is no mitral valve stenosis. TRICUSPID VALVE There is mild pulmonary hypertension. GREAT VESSELS The aortic root is normal in size. PERICARDIAL EFFUSION There is no pericardial effusion. <Conclusion> The left ventricle is normal size. There is borderline concentric left ventricular hypertrophy. Left ventricle systolic function is borderline. Transmitral Doppler flow pattern is Grade I-abnormal relaxation pattern. There is mild pulmonary hypertension.
[2018-01-07 07:17] LABS: HEMOGLOBIN 11.6 g/dL (12.0-16.0); MEAN CELL VOLUME 92.1 fl (80.0-105.0); MEAN CORPUSCULAR HEMOGLOBIN 29.6 pg (25.0-35.0); MEAN CORPUSCULAR HGB CONC 32.1 g/dl (31.0-37.0); MEAN PLATELET VOLUME 8.9 fl (7.0-11.0); RBC 3.92 10^6/uL (3.5-6.1); RED CELL DISTRIBUTION WIDTH 13.3 % (11.5-14.5); WHITE BLOOD COUNT 11.4 10^3/ul (4.5-11.0)
[2018-01-07] MEDS: Insulin Reg-MEDIUM-Coverage SC SCH (07:35)
[2018-01-07] MEDS: Budesonide 0.25 mg/2 ml Inhal Susp UD IH SCH (08:00)
[2018-01-07] MEDS: Arformoterol 15 mcg/2 ml Inh Sol IH SCH (08:00)
[2018-01-07 08:03] VITALS: RESP 20; TEMP 98.2; O2SAT 97
[2018-01-07 11:13] VITALS: BP 173/106; PULSE 83
--- NOTE | 2018-01-07 11:21 | CP.PCM.PN ---
Subjective - Date & Time of Evaluation Date of Evaluation: 01/07/18 Time of Evaluation: 11:19 - Subjective Subjective: PGY-[address] Arce C/O: doesnt feel well does want to go home S: Interviewed pt with daughter. Pt states that she still feel lightheaded when changing position. Denies WILDER, CP, SOB, N/V/D/C, abd pain. O: Laying 159/86 HR 90s; Standing 165/82 HR 115 Gen: NAD HEENT: R eye blind Heart: Regular S1 S2 Pulm: CTAb/l no w/r/r LEg: no edema A: Likely Orthostatic hypotension P: maintain adequate hydration throughout the day compression stocking during the day s/r/d/w Dr. Arce Objective - Vital Signs/Intake and Output Vital Signs (last 24 hours): Temp Pulse Resp BP Pulse Ox 98.2 F 83 20 173/106 H 97 01/07/18 06:00 01/07/18 11:09 01/07/18 06:00 01/07/18 11:09 01/07/18 06:00 Intake and Output: 01/07/18 01/07/18 06:59 18:59 Intake Total 0 Balance 0 - Medications Medications: Current Medications Arformoterol Tartrate (Brovana) 15 mcg IH [id number] [facility] Last Admin: 01/07/18 08:00 Dose: 15 mcg Atorvastatin Calcium (Lipitor) 40 mg PO DIN [facility] Last Admin: 01/06/18 19:00 Dose: 40 mg Budesonide (Pulmicort Respules) 0.25 mg IH [id number] [facility] Last Admin: 01/07/18 08:00 Dose: 0.25 mg Clopidogrel Bisulfate (Plavix) 75 mg PO DAILY [facility] Last Admin: 01/07/18 11:09 Dose: 75 mg Sodium Chloride (Sodium Chloride 0.45%) 1,000 mls @ 60 mls/hr IV [id number] [facility] Last Admin: 01/06/18 11:26 Dose: 60 mls/hr Insulin Detemir (Levemir) 30 unit SC [facility] Last Admin: 01/06/18 22:23 Dose: 30 unit Insulin Human Regular (Humulin R Med) 0 units SC ACHS [facility] PRN Reason: Protocol Last Admin: 01/06/18 22:22 Dose: Not Given Losartan Potassium (Cozaar) 50 mg PO DAILY [facility] Last Admin: 01/07/18 11:09 Dose: 50 mg Sitagliptin Phosphate (Januvia) 25 mg PO DAILY [facility] Last Admin: 01/07/18 11:11 Dose: 25 mg - Labs Labs: 01/07/18 06:30 01/06/18 09:00 PT 10.8 SECONDS (9.4-12.5) 01/05/18 20:56 INR 0.95 (0.93-1.08) 01/05/18 20:56 APTT 27.4 Seconds (25.1-36.5) 01/05/18 20:56
== END 2018-01-07 12:42 | disposition home or self-care (01) ==
LOC: ED 19:14 → ERH 22:08 → 3RSO 01-06 00:02
PROVIDERS: ADMIT Family Medicine; ATTEND Family Medicine
DX: R55 Syncope and collapse (principal); R42 Dizziness and giddiness; I25.118 Atherosclerotic heart disease of native coronary artery with other forms of angina pectoris; E11.42 Type 2 diabetes mellitus with diabetic polyneuropathy; E87.5 Hyperkalemia; N18.9 Chronic kidney disease, unspecified; E11.22 Type 2 diabetes mellitus with diabetic chronic kidney disease; I12.9 Hypertensive chronic kidney disease with stage 1 through stage 4 chronic kidney disease, or unspecified chronic kidney disease; K21.9 Gastro-esophageal reflux disease without esophagitis; H54.61 Unqualified visual loss, right eye, normal vision left eye; Z90.49 Acquired absence of other specified parts of digestive tract; Z95.5 Presence of coronary angioplasty implant and graft; I25.2 Old myocardial infarction
CPT/HCPCS: 36415; 70450; 70551; 71045; 80053; 80061; 81001; 82550; 82948; 83615; 84484; 85027; 85610; 85730; 93005; 93306; 93880; 94640; 94760; 96374; 96375; 97116; 97162; 99285; G0378; G8978; G8979; G8980; J7030